=== PATIENT | female | born 1975 | race Caucasian/White ===

== ENCOUNTER → 2020-03-10 10:03 | Outpatient (BNVA) | payer BC, SELFPAY | PROVIDERS: Family Provider Family Medicine; PCP Family Medicine; Visit Provider Nurse Practitioner Family | DX: Z20.828 Contact with and (suspected) exposure to other viral communicable diseases (principal); J06.9 Acute upper respiratory infection, unspecified | CPT/HCPCS: 87635 ==

== ENCOUNTER 2022-05-19 14:13 | Inpatient (IN) | payer BC, SELFPAY ==
[2022-05-19] VITALS (7 sets, daily range): BP systolic 186–236; BP diastolic 103–133; PULSE 95–108; RESP 18–26; TEMP 36.6–36.7; O2SAT 87–94; BMI 69.3
--- NOTE | 2022-05-19 14:31 | ED_ITS ---
HPI - Extremity Problem General: Chief complaint: Extremity Problem,Nontraumatic Stated complaint: legs swollen and both have sores Time Seen by Provider: 05/19/22 14:31 History of Present Illness: Ms. Ayala is a 46-year-old lady presenting to the emergency department due to concern over volume overload and leg wounds. She reports worsening symptoms progressively approximately 6 months and bilateral lower extremities. Over the past week or so she has noticed fevers, nausea, vomiting, increased drainage and wounds that do not appear to be healing. Most prominently there is a smaller 1 on the right anterior jensen and a larger 1 in the left posterior calf region. She also notes dyspnea on exertion. She is a former smoker but has not smoked in 8 years. Denies associated i nfectious symptoms regarding respiratory. She notes abdominal fullness. She has also had change in bowel habits. Intensity symptoms is moderate. Course has worsened. No other specific changes in health, exacerbating, or alleviating factors identified. Onset (ago): month(s) Location: lower extremity Quality: burning Radiation: none Relieving factors: nothing Exacerbating factors: weight bearing, walking and palpation Associated symptoms: Reports chest pain and short of breath Review of Systems General: Reports: 10 or more systems reviewed and unremarkable except in HPI and below Card: Reports: chest pain [facility] ED PFSH: Medical History Morbid obesity Surgical History History of History of cholecystectomy Family History Father CAD (coronary artery disease) Mother CAD (coronary artery disease) Social History Smoking and tobacco status: never smoked Alcohol intake: never Physical Exam Const: COMMON NORMALS: alert GENERAL APPEARANCE: cooperative and well developed HENMT: COMMON NORMALS: normocephalic and atraumatic HEAD & SCALP: normocephalic and atraumatic Eye: COMMON NORMALS: conjunctivae normal CONJUNCTIVA: Yes conjunctivae normal SCLERA: sclerae normal Neck/C-Spine: COMMON NORMALS: supple GENERAL: Yes trachea midline Resp: COMMON NORMALS: clear to auscultation bilaterally EFFORT & INSPECTION: Yes able to speak in complete sentences AUSCULTATION: clear to auscultation bilaterally Cardio: COMMON NORMALS: regular rate and regular rhythm RATE: regular rate RHYTHM: regular rhythm GI: COMMON NORMALS: Soft to palpation PALPATION: Yes Soft to palpation and No Tenderness to palpation present (GI) Extremity: NARRATIVE EXTREMITY EXAM: bilateral lower extremity superficial skin ulcerations. GENERAL: Yes normal exam except as noted and Yes edema Neuro: COMMON NORMALS: moves all extremities SENSORIUM/ORIENTATION: Yes alert and No Orientation impaired Psych: COMMON NORMALS: mental status grossly normal and Normal thought process present THOUGHT PROCESS: Normal thought process present Course Vital Signs: Vital signs: Vital Signs Temperature 98.3 F 05/24/22 15:50 Pulse Rate 71 05/24/22 15:50 Respiratory Rate 14 05/24/22 15:50 Blood Pressure 127/59 05/24/22 15:50 Pulse Oximetry 90 05/24/22 15:50 Oxygen Delivery Me thod 05/24/22 15:50 Oxygen Flow Rate 3 05/24/22 15:50 MDM - Extremity (Nontraumatic) Medical Decision Making 46-year-old lady presenting with concern over volume overload. She now has sores associated with extremity edema. Intermittent chest pain and shortness of breath. Patient has not had prior evaluation for heart failure. Labs with no significant hematologic abnormalities to explain symptoms. Metabolic panel with mild hypokalemia. Inflammatory markers are elevated mildly. Chest x-ray with cardiomegaly. No evidence of DVT on ultrasound. CT demonstrates lower abdominal wall cellulitis. Patient treated with antibiotic and potassium supplementation during ED course. Most likely etiology of patient's symptoms is volume overload and cellulitis without prior diagnosis of heart failure. The results of ED evaluation were discussed with the patient including plan for admission due to requirement for level of care not available if discharged to prevent significant worsening/deterioration. Patient agreeable with plan. Discussed with hospitalist service who was agreeable to admit patient. Medical Records I reviewed the patient's medical records. Lab Data I reviewed the patient's lab results. 05/24/22 08:05 05/24/22 08:05 Radiology Impressions Chest X-Ray 05/19/22 14:59 IMPRESSION: Increased heart size with mild cardiomegaly. Abdomen/Pelvis CT 05/19/22 16:11 IMPRESSION: 1. Question of lower abdominal wall cellulitis 2. No acute intra-abdominal finding. Venous Duplex 05/19/22 18:22 IMPRESSION: No evidence of deep vein thrombosis. Laboratory Results WBC 7.6 10^3/uL (4.0-10.0) 05/19/22 15:15 RBC 5.08 10^6/uL (4.1-5.3) 05/19/22 15:15 Hgb 11.5 g/dL (11.5-15.3) 05/19/22 15:15 Hct 42.5 % (37.0-47.0) 05/19/22 15:15 MCV 83.7 fl (81-99) 05/19/22 15:15 MCH 22.6 pg (28.0-34.0) L 05/19/22 15:15 MCHC 27.1 g/dL (30.0-36.0) L 05/19/22 15:15 RDW 21.8 % (12.1-15.1) H 05/19/22 15:15 Plt Count 244 10^3/cmm (130-400) 05/19/22 15:15 MPV 8.4 fL (7.4-10.4) 05/19/22 15:15 Neut % (Auto) 75.2 % 05/19/22 15:15 Lymph % (Auto) 13.2 % 05/19/22 15:15 [place] % (Auto) 9.7 % 05/19/22 15:15 Eos % (Auto) 0.8 % 05/19/22 15:15 Baso % (Auto) 0.8 % 05/19/22 15:15 Neut # (Auto) 5.75 10^3/uL (1.8-7.7) 05/19/22 15:15 Lymph # (Auto) 1.0 10^3/uL (0.8-4.8) 05/19/22 15:15 [place] # (Auto) 0.7 10^3/uL (0.2-0.9) 05/19/22 15:15 Eos # (Auto) 0.1 10^3/uL (0.0-0.8) 05/19/22 15:15 Baso # (Auto) 0.1 10^3/uL (0.0-0.1) 05/19/22 15:15 Nucleated RBC % (auto) 0 % 05/19/22 15:15 Nucleated RBCs # 0.0 /100WBC 05/19/22 15:15 ESR 46 mm/hr (0-15) H 05/19/22 15:15 Sodium 136 mmol/L (136-145) 05/19/22 15:15 Potassium 3.3 mmol/L (3.5-5.1) L 05/19/22 15:15 Chloride 98 mmol/L (98-107) 05/19/22 15:15 Carbon Dioxide 28 mmol/L (22-29) 05/19/22 15:15 Anion Gap 13.3 (5-19) 05/19/22 15:15 BUN 9 mg/dL (6-20) 05/19/22 15:15 Creatinine 0.4 mg/dL (0.5-0.9) L 05/19/22 15:15 GFR Calculation 171.1 mL/min (90-130) H 05/19/22 15:15 Glucose 114 mg/dL (65-115) 05/19/22 15:15 Calculated Osmolality 282 mOsm/kg (285-295) L 05/19/22 15:15 Lactate 1.2 mmol/L (0.5-2.2) 05/19/22 15:15 Calcium 10.1 mg/dL (8.5-10.5) 05/19/22 15:15 Total Bilirubin 0.9 mg/dL (0.15-1.2) 05/19/22 15:15 AST 8 U/L (0-32) 05/19/22 15:15 ALT 6 U/L (0-33) 05/19/22 15:15 Alkaline Phosphatase 148 U/L (35-105) H 05/19/22 15:15 Troponin T Baseline 9 ng/L (0-10) 05/19/22 19:28 C-Reactive Protein 7.7 mg/L (0.0-4.9) H 05/19/22 15:15 NT-Pro-B Natriuret Pep 328 pg/mL (0-125) H 05/19/22 15:15 Total Protein 7.3 g/dL (6.6-8.7) 05/19/22 15:15 Albumin 3.6 g/dL (3.5-5.2) 05/19/22 15:15 Globulin 3.7 g/dL (1.3-4.6) 05/19/22 15:15 Procalcitonin 0.04 ng/mL (0-0.5) 05/19/22 15:15 TSH 1.85 uIU/mL (0.27-4.20) 05/19/22 15:15 HCG, Qual Negative (Negative) 05/19/22 16:20 Urine Color Yellow (Yellow) 05/19/22 16:20 Urine Appearance Clear (CLEAR) 05/19/22 16:20 Urine pH 7 (5-7) 05/19/22 16:20 Ur Specific [place] 1.015 (1.005-1.030) 05/19/22 16:20 Urine Protein Neg (Negative) 05/19/22 16:20 Urine Glucose (UA) Norm (Normal) 05/19/22 16:20 Urine Ketones Negative (Negative) 05/19/22 16:20 Urine Blood Neg (Negative) 05/19/22 16:20 Urine Nitrate Negative (Negative) 05/19/22 16:20 Urine Bilirubin Neg (Negative) 05/19/22 16:20 Urine Urobilinogen 1 mg/dL (Negative) H 05/19/22 16:20 Ur Leukocyte Esterase Negative (Negative) 05/19/22 16:20 Discharge Plan Discharge Patient Disposition: Placed in Observation Admit Provider: Mehrdad Jimenez Clinical Impression: Cellulitis, Lower extremity edema, Symptom of congestive heart failure, Hypoxia, Hypokalemia Discharge Diet: Cardiac Discharge Activity: Resume usual activity Coding Level of Care Code ED Board Setter for Lillian Gómez
--- NOTE | 2022-05-19 14:59 | XRR_ITS ---
PROCEDURE INFORMATION: Exam: XR Chest Exam date and time: 05/19/2022 3:10 PM Age: 46 years old Clinical indication: Shortness of breath; Additional info: SOB TECHNIQUE: Imaging protocol: Radiologic exam of the chest. Views: 1 view. COMPARISON: CR XR chest 1V [id number] 07/31/2018 4:14 PM FINDINGS: Lungs: Unremarkable. No consolidation. Pleural spaces: Unremarkable. No pleural effusion. No pneumothorax. Heart/Mediastinum: Increased heart size with mild cardiomegaly. Bones/joints: Unremarkable. Soft tissues: Examination is limited secondary to body habitus. XR/XR chest 1V portable [id number] IMPRESSION: Increased heart size with mild cardiomegaly.
[2022-05-19 15:24] LABS: Basophils # 0.1 10^3/uL (0.0-0.1); Basophils % 0.8 %; Eosinophils # 0.1 10^3/uL (0.0-0.8); Eosinophils % 0.8 %; Hematocrit 42.5 % (37.0-47.0); Hemoglobin 11.5 g/dL (11.5-15.3); Lymphocytes % 13.2 %; Mean Corpuscular HGB Conc 27.1 g/dL (30.0-36.0); Mean Corpuscular Hemoglobin 22.6 pg (28.0-34.0); Mean Corpuscular Volume 83.7 fl (81-99); Mean Platelet Volume 8.4 fL (7.4-10.4); Monocytes # 0.7 10^3/uL (0.2-0.9); Monocytes % 9.7 %; Neutrophils # 5.75 10^3/uL (1.8-7.7); Neutrophils % 75.2 %; Nucleated Red Blood Cells % 0 %; Platelet Count 244 10^3/cmm (130-400); Red Blood Count 5.08 10^6/uL (4.1-5.3); Red Cell Distribution Width 21.8 % (12.1-15.1); White Blood Count 7.6 10^3/uL (4.0-10.0)
[2022-05-19 15:46] LABS: Lactate (Lactic Acid level) 1.2 mmol/L (0.5-2.2)
[2022-05-19 15:52] LABS: Erythrocyte Sedimentation Rate 46 mm/hr (0-15)
[2022-05-19 15:53] LABS: NT Pro B Type Natriuretic Pept 328 pg/mL (0-125); Procalcitonin 0.04 ng/mL (0-0.5); Thyroid Stimulating Hormone 1.85 uIU/mL (0.27-4.20)
[2022-05-19 16:04] LABS: Alanine Aminotransferase 6 U/L (0-33); Albumin Level 3.6 g/dL (3.5-5.2); Alkaline Phosphatase 148 U/L (35-105); Anion Gap 13.3 (5-19); Aspartate Amino Transferase 8 U/L (0-32); Blood Urea Nitrogen 9 mg/dL (6-20); C Reactive Protein 7.7 mg/L (0.0-4.9); Calcium 10.1 mg/dL (8.5-10.5); Carbon Dioxide 28 mmol/L (22-29); Chloride 98 mmol/L (98-107); Globulin 3.7 g/dL (1.3-4.6); Glomerular Filtration Rate 171.1 mL/min (90-130); Glucose 114 mg/dL (65-115); Osmolality Calculated 282 mOsm/kg (285-295); Potassium 3.3 mmol/L (3.5-5.1); Sodium 136 mmol/L (136-145); Total Bilirubin 0.9 mg/dL (0.15-1.2); Total Protein 7.3 g/dL (6.6-8.7)
--- NOTE | 2022-05-19 16:11 | CTR_ITS ---
PROCEDURE INFORMATION: Exam: CT Abdomen And Pelvis With Contrast Exam date and time: 05/19/2022 4:30 PM Age: 46 years old Clinical indication: Bloating; Abdominal pain; Localized; Right; Additional info: Abd pain, fullness, change in bowel habits TECHNIQUE: Imaging protocol: Computed tomography of the abdomen and pelvis with contrast. Radiation optimization: All CT scans at this facility use at least one of these dose optimization techniques: automated exposure control; mA and/or kV adjustment per patient size (includes targeted exams where dose is matched to clinical indication); or iterative reconstruction. Contrast material: OMNI 350; Contrast volume: 100 ml; Contrast route: INTRAVENOUS (IV); REPORTING DATA: Count of CT and Cardiac NM exams in prior 12 months: This patient has received 0 known CTs and 0 known cardiac nuclear medicine studies in the 12 months prior to the current study. COMPARISON: CR (CHEST, ) 05/19/2022 3:10 PM RADIATION DOSE METRICS: Total DLP (mGy-cm): 1769.63 FINDINGS: Limitations: Study is limited due to patient body habitus. Increased noise/quantum mottle, which may be secondary to causes such as low to output for a given body size versus increased amount overlying soft tissues. Liver: There is no focal abnormality within the liver. Gallbladder and bile ducts: There has been a cholecystectomy. Pancreas: The pancreas is normal. Spleen: The spleen is normal. Adrenal glands: 2.3 cm sized fatty mass right adrenal gland likely benign myelolipoma. Kidneys and ureters: The kidneys are normal. There is no evidence of hydronephrosis. There is no evidence of renal or ureteral calcifications. Stomach and bowel: There is no evidence of colitis/diverticulitis. There is no evidence of intestinal obstruction. Appendix: A normal appendix is identified. Intraperitoneal space: There is no evidence of free intraperitoneal fluid. Vasculature: A retroaortic left renal vein is incidentally noted. The aorta is normal. Lymph nodes: There is no evidence of lymphadenopathy. Urinary bladder: Unremarkable as visualized. Reproductive: Unremarkable as visualized. Bones/joints: Unremarkable. No acute fracture. Soft tissues: There is edema in the subcutaneous fat of the lower abdominal wall and skin thickening. Please correlate for any clinical signs or symptoms of cellulitis. CT/CT abdomen pelvis w con* [id number] IMPRESSION: 1. Question of lower abdominal wall cellulitis 2. No acute intra-abdominal finding.
[2022-05-19 16:33] LABS: Add Urine Microscopic? NO; Charge for UA Resulting for Rev
[2022-05-19 16:38] LABS: Bilirubin Urine Neg (Negative); Blood Urine Neg (Negative); Glucose Urine UA Norm (Normal); Ketones Urine Negative (Negative); Leukocyte Esterase Urine Negative (Negative); Nitrate Urine Negative (Negative); Protein Urine Neg (Negative); Specific Gravity, Urine 1.015 (1.005-1.030); Urine Appearance Clear (CLEAR); Urine Color Yellow (Yellow); Urobilinogen Urine 1 mg/dL (Negative); pH Urine 7 (5-7)
[2022-05-19] MEDS: potassium chloride ER 20 mEq Tablet 40 MEQ PO (16:52)
[2022-05-19] MEDS: clindamycin 600 MG/50 ML PREMIX 100 MG IV (18:04)
--- NOTE | 2022-05-19 18:22 | USR_ITS ---
PROCEDURE INFORMATION: Exam: US Duplex Lower Extremity Veins, Bilateral Exam date and time: 05/19/2022 6:39 PM Age: 46 years old Clinical indication: Lymphedema; Lower extremity, bilateral; Additional info: Dvt TECHNIQUE: Imaging protocol: Real-time duplex ultrasound of the bilateral extremities with 2-D mcclellan scale, color Doppler flow and spectral waveform analysis including responses to compression and other maneuvers (when performed) with image documentation. Complete exam focused on the lower extremity veins. COMPARISON: CT abdomen pelvis w con* [id number] 05/19/2022 4:30 PM FINDINGS: Right deep veins: Unremarkable. The common femoral, femoral, proximal profunda femoral and popliteal veins are patent without thrombus. Normal Doppler waveforms. Normal compressibility and/or augmentation response. Right superficial veins: Saphenofemoral junction is patent without thrombus. Left deep veins: Unremarkable. The common femoral, femoral, proximal profunda femoral and popliteal veins are patent without thrombus. Normal Doppler waveforms. Normal compressibility and/or augmentation response. Left superficial veins: Saphenofemoral junction is patent without thrombus. Soft tissues: Unremarkable. US/[place] [id number] IMPRESSION: No evidence of deep vein thrombosis.
--- NOTE | 2022-05-19 18:23 | P.HP_ITS ---
Providers/Chief Complaint Primary Care Provider: Jus Espinal MD Chief Complaint: legs swollen and both have sores History of Present Illness Tammie Ayala is a 46 year old female with no significant past medical history except morbid obesity, she has not seen a physician in a long time, who presents to [facility] due to increased shortness of breath, lower extremity edema, bilateral weeping edema with concerns for infection however legs. She tells me that she has been feeling short of breath for some time, but she has progressively felt increasingly short of breath with exertion, now she is short of breath with less than a few feet, short of breath with showering, she is developed significant worsening lower extremity edema now is developed weeping edema such as the blisters rupture and they weep fluid. She is also developed irritation of the skin around it, she is worried about infection. She also describes twinging in her chest, possible chest pain in the left side of her chest lasting a few seconds, nonradiating, no orthopnea, probable paroxysmal nocturnal dyspnea. No fevers, no chills. She denies smoking. No history of alcohol use. No history of drug use. She also reports increased abdominal wall edema, fullness in her abdominal wall. She denies any history of hypertension, but her blood pressure was 231/105, she has not received any medication to bring down her blood pressure, she denies any headache, no blurry vision, no nausea, no vomiting, no focal neurologic deficits, no paresthesias she actually sitting up in a chair her daughter's sitting in the [facility] Review of Systems Const: Denies: fever(s) Eyes: Denies: change in vision ENMT: Reports: throat pain Card: Denies: chest pain Resp: Reports: dyspnea GI: Denies: abdominal pain : Denies: flank pain Musc: Denies: back pain Neuro: Denies: headache(s) Medications/Allergies Home Medications Medication Instructions Recorded Confirmed Last Taken Type No Known Home Medications 05/19/22 05/19/22 Unknown History Allergies Allergy/AdvReac Type Severity Reaction Status Date / Time acetaminophen [From Percocet] Allergy ALGY-Anaphy Verified 05/19/22 14:26 laxis oxycodone [From Percocet] Allergy ALGY-Anaphy Verified 05/19/22 14:26 laxis PFSH Acute PFSH: Medical History (Updated 05/19/22 @ 18:31 by Mehrdad Jimenez MD) Morbid obesity Surgical History (Updated 05/19/22 @ 18:27 by Mehrdad Jimenez MD) History of History of cholecystectomy Family History (Updated 05/19/22 @ 18:27 by Mehrdad Jimenez MD) Father CAD (coronary artery disease) Mother CAD (coronary artery disease) Social History (Updated 05/19/22 @ 18:28 by Mehrdad Jimenez MD) Smoking and tobacco status: never smoked Alcohol intake: never Substance/Drug Use: never Vitals/I&O/Wt Last Vital Signs Temp 97.8 F 05/19/22 14:18 Pulse 108 H 05/19/22 14:18 Resp 18 05/19/22 14:18 BP 231/105 05/19/22 18:07 Pulse Ox 87 L 05/19/22 14:18 O2 Del Method 05/19/22 14:18 Weight last 48 hrs Weight 183.251 kg Physical Exam Const: COMMON NORMALS: no acute distress and patient oriented x3 OTHER: Morbidly obese HENMT: COMMON NORMALS: normocephalic HEAD & SCALP: normocephalic Eye: COMMON NORMALS: Equal, round and reactive pupils present and EOMs intact bilaterally Neck/C-Spine: COMMON NORMALS: no JVD Lymph: LYMPHATIC: no lymphadenopathy noted Chest: COMMONS NORMALS: normal inspection of the chest Resp: COMMON NORMALS: normal respiratory effort, No retractions, No use of accessory muscles and clear to auscultation bilaterally AUSCULTATION: clear to auscultation bilaterally Cardio: COMMON NORMALS: regular rate, regular rhythm, S1 normal heart sound present and S2 normal heart sound present RATE: regular rate RHYTHM: regular rhythm HEART SOUNDS: S1 normal heart sound present and S2 normal heart sound present GI: COMMON NORMALS: Normal to inspection, nondistended, normoactive bowel sounds present, Soft to palpation and non-tender PALPATION: Yes Soft to palpation and Yes No hepatosplenomegaly present Extremity: COMMON NORMALS: no calf tenderness NARRATIVE EXTREMITY EXAM: Bilateral lower extremity, 3+ pitting edema -Has open wounds and have open excoriations -On right lower extremity largest measuring 1 x 1 cm, irregular borders -1 on left lower extremity, measuring 1 x 1 cm, irregular borders Neuro: COMMON NORMALS: patient oriented x3, CN's II-XII intact bilaterally, moves all extremities and no focal motor deficits Psych: COMMON NORMALS: mental status grossly normal Data 05/19/22 15:15 05/19/22 15:15 A&P Assessment and plan (1) Chest pain: (2) Hypertensive urgency: (3) CHF exacerbation: (4) Lower extremity edema: (5) Cellulitis: (6) Hypoxia: (7) Hypokalemia: Plan Hypertensive urgency -Currently denies any chest pain, no strokelike symptoms, no shortness of breath -ER we will give her 0.1 of clonidine -But I think that she will likely develop right down hypertension, but will place on nitroglycerin drip -Once systolic blood pressure is less than 160 and diastolic is greater than 80 can hold nitroglycerin drip -Start Norvasc 10 mg once daily -Telemetry monitoring -Neurochecks CHF exacerbation -Type unknown -Seems like diastolic CHF exacerbation -Fluid restrictions 1200 cc -Place Sharp catheter -Lasix 40 mg IV twice daily -Slowly diuresis -Monitor creatinine, monitor potassium, magnesium Chest pain complaints -None currently -Serial EKGs, serial troponins, telemetry monitoring Bilateral lower extremity cellulitis -Continue vancomycin -Continue cefepime Venous ultrasound, for DVT Hypokalemia being replaced in the emergency room Morbid obesity Full code Lovenox for DVT prophylaxis Attestations Medical Necessity Statement*: Patient requires hospitalization, inpatient, greater than 2 minutes, for acute CHF?admission, type unknown, hypoxia, cellulitis, bilateral from edema, hypertensive urgency Coding Level of Care Code Acute Code for [facility] Fwd Diagnoses Chest pain R07.9 Hypertensive urgency I16.0 CHF exacerbation I50.9 Lower extremity edema R60.0 Cellulitis L03.90 Hypoxia R09.02 Hypokalemia E87.6
[2022-05-19] MEDS: cloNIDine 0.1 mg Tablet PO (18:30)
[2022-05-19 18:51] LABS: HCG Qualitative Urine. Negative (Negative)
[2022-05-19 19:59] LABS: Troponin(5th) Baseline 9 ng/L (0-10)
--- NOTE | 2022-05-19 20:38 | ECG_ITS ---
[facility] Test Date: 2022-05-19 Pat Name: Tammie Ayala Department: Room: 112 Gender: Female Inbound Telemarketer: : 1975 Requested By: Mehrdad Jimenez Order Number: [id number] Reading MD: MORENITA BAUTISTA Measurements Intervals [place] Rate: 98 P: 64 [place]: 149 QRS: 61 QRSD: 94 T: 52 QT: 363 QTc: 465 Interpretive Statements SINUS RHYTHM No previous ECG available for comparison Electronically Signed On 05-19-2022 23:41:53 CDT by MORENITA BAUTISTA [id number]
[2022-05-19] MEDS: amlodipine 10 mg Tablet PO (20:50)
[2022-05-19] MEDS: FUROsemide 10 mg/mL SDV 4mL 40 MG IVP (20:50)
[2022-05-19] MEDS: pantoprazole 40 mg SDV IVP (20:55)
[2022-05-19] MEDS: cefepime 1,000 MG in sodium chloride 0.9% (plus) 50 ML 100 MG IV (20:56)
[2022-05-19] MEDS: enoxaparin 40 mg/0.4 mL Syringe SUBCUT (21:03)
[2022-05-19] MEDS: vancomycin 1,500 MG/300 ML PIGGYBACK 200 MG IV (21:42)
[2022-05-19] MEDS: nitroglycerin drip 50 MG/250 ML PREMIX IV (21:50)
[2022-05-19] MEDS: acetaminophen 325 mg Tablet 650 MG PO (22:20)
[2022-05-19 23:09] LABS: Estmated Average Glucose 128; Hemoglobin A1C 6.1 % (4.0-6.0)
[2022-05-19 23:12] LABS: Troponin 5 2HR 11.04 ng/L (0-10); Troponin 5 2HR Delta 2.04 ABS# (0-10)
[2022-05-19 23:22] LABS: Chol HDL Ratio 3.79 mg/dL (0.0-4.40); Cholesterol 144 mg/dL (0-200); HDL Cholesterol 38 mg/dL (60-100); LDL Cholesterol Calculated 89 mg/dL (50-129); LDL HDL Ratio 2.34 RATIO (0.00-3.22); Thyroid Stimulating Hormone 1.67 uIU/mL (0.27-4.20); Triglycerides 87 mg/dL (0-150)
[2022-05-20] VITALS (10 sets, daily range): BP systolic 114–172; BP diastolic 58–79; PULSE 78–113; RESP 16–25; TEMP 36.6–37.2; O2SAT 91–96
--- NOTE | 2022-05-20 00:33 | ECG_ITS ---
[facility] Test Date: 2022-05-20 Pat Name: Tammie Ayala Department: Room: 112 Gender: Female Liquid Yeast Supervisor: : 1975 Requested By: Mehrdad Jimenez Order Number: [id number] Reading MD: MORENITA BAUTISTA Measurements Intervals [place] Rate: 97 P: 47 [place]: 145 QRS: 24 QRSD: 94 T: 43 QT: 373 QTc: 476 Interpretive Statements SINUS RHYTHM Compared to ECG 05/19/2022 21:07:04 No significant changes Electronically Signed On 05-21-2022 3:08:30 CDT by MORENITA BAUTISTA [id number]
[2022-05-20 01:32] LABS: Basophils # 0.1 10^3/uL (0.0-0.1); Basophils % 0.6 %; Eosinophils # 0.1 10^3/uL (0.0-0.8); Eosinophils % 0.8 %; Hemoglobin 10.9 g/dL (11.5-15.3); Lymphocytes % 10.2 %; Mean Corpuscular HGB Conc 26.6 g/dL (30.0-36.0); Mean Corpuscular Hemoglobin 22.2 pg (28.0-34.0); Mean Corpuscular Volume 83.7 fl (81-99); Mean Platelet Volume 8.4 fL (7.4-10.4); Monocytes # 1.1 10^3/uL (0.2-0.9); Monocytes % 10.7 %; Neutrophils # 7.62 10^3/uL (1.8-7.7); Neutrophils % 77.6 %; Nucleated Red Blood Cells % 0 %; Platelet Count 280 10^3/cmm (130-400); Red Cell Distribution Width 21.5 % (12.1-15.1); White Blood Count 9.8 10^3/uL (4.0-10.0)
[2022-05-20 01:56] LABS: Troponin 5 6HR 11.15 ng/L (0-10)
[2022-05-20 02:02] LABS: Anion Gap 10.5 (5-19); Blood Urea Nitrogen 7 mg/dL (6-20); Calcium 9.7 mg/dL (8.5-10.5); Carbon Dioxide 33 mmol/L (22-29); Chloride 98 mmol/L (98-107); Glomerular Filtration Rate 132.2 mL/min (90-130); Glucose 116 mg/dL (65-115); Magnesium 1.7 mg/dL (1.7-2.3); NT Pro B Type Natriuretic Pept 489 pg/mL (0-125); Osmolality Calculated 285 mOsm/kg (285-295); Phosphorus 3.3 mg/dL (2.5-4.5); Potassium 3.5 mmol/L (3.5-5.1); Sodium 138 mmol/L (136-145)
[2022-05-20 02:20] LABS: Troponin 5 6HR Delta 2.15 ng/L (0-12)
[2022-05-20] MEDS: acetaminophen 325 mg Tablet 650 MG PO ×3 (04:23→17:50)
--- NOTE | 2022-05-20 06:00 | USCV_ITS ---
Tammie Ayala Age: 46 Gender: F : 1975 Exam Date: 05/20/2022 16:50 Ordering Phys: Mehrdad Jimenez MD Technologist: CESAR [place]am Location[place] [facility] [place] [facility] [place] Indication: sob BP: / HR: Rhythm: Sinus Technical Quality: Poor because of body habitus MEASUREMENTS (Male / Female) Normal Values FINDINGS Left Ventricle Normal left ventricular size, systolic function and wall thickness, with no regional wall motion abnormalities. Left ventricular ejection fraction is estimated at 60 %. Grade I/IV diastolic dysfunction (abnormal relaxation filling pattern), normal to mildly elevated filling pressures. Right Ventricle The right ventricle is normal in size and function. Right Atrium The right atrium is normal in size. Left Atrium The left atrium is normal in size. Mitral Valve Structurally normal mitral valve without significant stenosis or prolapse. There is no mitral regurgitation. Aortic Valve Thickened aortic valve. Severe aortic valve calcification. Aortic valve not well visualized. Probably no significant stenosis Tricuspid Valve Structurally normal tricuspid valve without significant stenosis or regurgitation. Pulmonary artery systolic pressure is normal. Pulmonic Valve Structurally normal pulmonic valve without significant stenosis. There is no pulmonic regurgitation. Pericardium Normal pericardium without effusion. Aorta Normal ascending aorta dimension. IVC The inferior vena cava appears normal. CONCLUSIONS 1-Normal left ventricular size, systolic function and wall thickness, with no regional wall motion abnormalities. Left ventricular ejection fraction is estimated at 60 %. Grade I/IV diastolic dysfunction (abnormal relaxation filling pattern), normal to mildly elevated filling pressures. 2-There is no pericardial effusion. 3-No significant valve abnormalities. 4-Right atrial pressure is around 5 mm of mercury. Marc Liu MD (Electronically Signed) Final Date: 21 May 2022 02:20 S
[2022-05-20] MEDS: spironolactone 25 mg Tablet PO (08:41)
[2022-05-20] MEDS: FUROsemide 10 mg/mL SDV 4mL 40 MG IVP (08:41)
[2022-05-20] MEDS: potassium chloride ER 20 mEq Tablet 40 MEQ PO (08:42)
[2022-05-20] MEDS: amlodipine 10 mg Tablet PO (08:42)
[2022-05-20] MEDS: metoprolol tartrate 25 mg Tablet PO ×2 (08:42→20:13)
[2022-05-20] MEDS: cefepime 1,000 MG in sodium chloride 0.9% (plus) 50 ML 100 MG IV ×2 (08:42→20:14)
[2022-05-20] MEDS: vancomycin 1,500 MG/300 ML PIGGYBACK 200 MG IV ×2 (11:09→18:13)
--- NOTE | 2022-05-20 11:13 | PM.PN ---
Subjective Subjective: Patient was seen this morning, she feels a lot better, she does a lot better, but continues to have complaints of shortness of breath is on 4 L, continues to have edema Vitals/I&O/Wt Last Vital Signs Temp 98.7 F 05/20/22 07:42 Pulse 113 H 05/20/22 07:42 Resp 20 H 05/20/22 07:42 BP 172/79 05/20/22 07:42 Pulse Ox 96 05/20/22 07:42 O2 Del Method 05/20/22 07:42 O2 Flow Rate 4 05/20/22 07:42 05/19/22 05/20/22 05/20/22 22:59 06:59 14:59 Intake Total 100 / 100 780 / 880 379 / 379 Output Total 2400 / 2400 3100 / 5500 2800 / 2800 Balance -2300 / -2300 -2320 / -4620 -2421 / -2421 Weight last 48 hrs Weight 183.251 kg Physical Exam Const: COMMON NORMALS: no acute distress and patient oriented x3 Resp: COMMON NORMALS: normal respiratory effort, No retractions, No use of accessory muscles and clear to auscultation bilaterally AUSCULTATION: clear to auscultation bilaterally Cardio: COMMON NORMALS: regular rate, regular rhythm, S1 normal heart sound present and S2 normal heart sound present RATE: regular rate RHYTHM: regular rhythm HEART SOUNDS: S1 normal heart sound present and S2 normal heart sound present GI: COMMON NORMALS: Normal to inspection, nondistended, normoactive bowel sounds present and non-tender Extremity: COMMON NORMALS: no pedal edema Neuro: COMMON NORMALS: patient oriented x3 Psych: COMMON NORMALS: mental status grossly normal Urinary Catheter Management: Sharp Latex: Cath Placed During This Visit: yes Reason for Continuing Indwelling Catheter: Accurate Measurement of Urinary Output in Critically Ill Patients Urinary Catheter Date of Insertion: 05/19/22 Urinary Catheter Time of Insertion: 19:45 Data 05/20/22 01:19 05/20/22 01:19 Micro: Microbiology 05/19/22 19:35 Blood Culture - Preliminary Blood SPECIMEN COLLECTED 05/19/22 19:28 Blood Culture - Preliminary Blood SPECIMEN COLLECTED A&P Assessment and plan (1) Chest pain: (2) Hypertensive urgency: (3) CHF exacerbation: (4) Lower extremity edema: (5) Cellulitis: (6) Hypoxia: (7) Hypokalemia: Plan Hypertensive urgency -Currently denies any chest pain, no strokelike symptoms, no shortness of breath -Off nitroglycerin drip -Aldactone 25 mg once daily -Norvasc 10 mg once daily -Metoprolol 25 twice daily CHF exacerbation -Type unknown -Seems like diastolic CHF exacerbation -Fluid restrictions 1200 cc -Place Sharp catheter - -8 L -Switch to Lasix 40 IV every 24 hours -Slowly diuresis -Monitor creatinine, monitor potassium, magnesium Chest pain complaints -None currently -Continue telemetry monitoring -Cardiac echo Bilateral lower extremity cellulitis -Continue vancomycin -Continue cefepime Morbid obesity Full code Lovenox for DVT prophylaxis Attestations Medical Necessity Statement*: Patient requires hospitalization for hypertensive urgency, CHF exacerbation Diagnoses Chest pain R07.9 Hypertensive urgency I16.0 CHF exacerbation I50.9 Lower extremity edema R60.0 Cellulitis L03.90 Hypoxia R09.02 Hypokalemia E87.6
[2022-05-20] MEDS: perflutren protein-a microsphr 0.22 mg/mL SDV 3 mL IV (17:41)
[2022-05-20] MEDS: enoxaparin 40 mg/0.4 mL Syringe SUBCUT (20:13)
[2022-05-20] MEDS: pantoprazole 40 mg SDV IVP (20:13)
[2022-05-21] VITALS (11 sets, daily range): BP systolic 133–146; BP diastolic 60–70; PULSE 71–92; RESP 18–24; TEMP 36.8–37.2; O2SAT 85–97
[2022-05-21] MEDS: acetaminophen 325 mg Tablet 650 MG PO ×4 (01:53→23:44)
[2022-05-21] MEDS: vancomycin 1,500 MG/300 ML PIGGYBACK 200 MG IV ×3 (02:28→18:15)
[2022-05-21] MEDS: ondansetron 2 mg/ML SDV 2 mL 4 MG IVP ×3 (02:28→23:44)
[2022-05-21 03:29] LABS: Basophils % 0.4 %; Eosinophils # 0.1 10^3/uL (0.0-0.8); Eosinophils % 1.2 %; Hematocrit 41.3 % (37.0-47.0); Hemoglobin 10.7 g/dL (11.5-15.3); Lymphocytes # 1.3 10^3/uL (0.8-4.8); Mean Corpuscular HGB Conc 25.9 g/dL (30.0-36.0); Mean Corpuscular Hemoglobin 22.2 pg (28.0-34.0); Mean Corpuscular Volume 85.9 fl (81-99); Mean Platelet Volume 8.8 fL (7.4-10.4); Monocytes # 0.8 10^3/uL (0.2-0.9); Monocytes % 9.3 %; Neutrophils # 6.74 10^3/uL (1.8-7.7); Neutrophils % 74.8 %; Nucleated Red Blood Cells % 0 %; Platelet Count 273 10^3/cmm (130-400); Red Blood Count 4.81 10^6/uL (4.1-5.3); Red Cell Distribution Width 21.5 % (12.1-15.1)
[2022-05-21 03:43] LABS: Magnesium 1.9 mg/dL (1.7-2.3); Phosphorus 3.4 mg/dL (2.5-4.5)
[2022-05-21 03:53] LABS: Anion Gap 11.8 (5-19); Blood Urea Nitrogen 10 mg/dL (6-20); Calcium 10.1 mg/dL (8.5-10.5); Carbon Dioxide 33 mmol/L (22-29); Chloride 100 mmol/L (98-107); Glomerular Filtration Rate 132.2 mL/min (90-130); Glucose 119 mg/dL (65-115); NT Pro B Type Natriuretic Pept 236 pg/mL (0-125); Osmolality Calculated 292 mOsm/kg (285-295); Potassium 3.8 mmol/L (3.5-5.1); Sodium 141 mmol/L (136-145)
[2022-05-21] MEDS: metoclopramide 5 mg/mL SDV 2 mL IVP (04:41)
[2022-05-21] MEDS: FUROsemide 10 mg/mL SDV 4mL 40 MG IVP ×2 (05:07→17:36)
[2022-05-21] MEDS: cefepime 1,000 MG in sodium chloride 0.9% (plus) 50 ML 100 MG IV ×2 (08:08→20:24)
[2022-05-21] MEDS: amlodipine 10 mg Tablet PO (08:09)
[2022-05-21] MEDS: metoprolol tartrate 25 mg Tablet PO ×2 (08:09→20:24)
[2022-05-21] MEDS: spironolactone 25 mg Tablet PO (08:09)
[2022-05-21] MEDS: potassium chloride ER 20 mEq Tablet 40 MEQ PO (08:09)
[2022-05-21] MEDS: metOLazone 5 MG Tablet PO (08:49)
--- NOTE | 2022-05-21 10:52 | PC.CHAP ---
Pastoral Care Encounter/Spiritual Assessment Type of Contact [] Declined edging catcher visit [] Patient/Family/Request visit [] Outpatient visit [] Follow-up visit [] Physician referral [] Code/Alert [] Routine visit [] Staff referral [] Actively dying [] Patient sleeping [] Family support [] [] Out of room [] Palliative care [] [x] Receiving care in room [] Pre-surgical visit [] Trauma [] Long length of stay [] ICU visit [] Other: Relational/Emotional Strength [] Patient feels connected with others/family/visitors/staff [] Distress [] Loneliness/isolation [] Abandonment Spirituality of Patient [] Person of [place] [] Attends Catholic of their [place] [] Believes in Prayer [] Reads Bible or Christian materials [] There are Spiritual issues to be addressed Organ Fixer Interventions [] Prayer [] Active listening [] Non-anxious presence [] Spiritual/emotional support [] Crisis/trauma care [] Spiritual counseling [] Bereavement support [] Provided bereavement packet [] Provided Bible/devotional materials [] Provided toy/stuffed animal, coloring book to patient or family member [] Provided Communion [] Anointing/[place] [] Salvation [] Completed spiritual assessment [] Other: Impact on Illness or Injury [] Angry [] Fearful [] Anxious [] Often cries [] Exhaustion [] Unable to work [] Unable to attend yarsani [] Unable to walk/stand [] Unable to read [] Unable to drive [] Unable to eat/drink [] Unable to sleep [] Unable to be with family [] Patient intubated [] Other: Summary Time spent with patient
[2022-05-21 10:53] LABS: Vancomycin Trough 17.7 ug/mL (10-15)
--- NOTE | 2022-05-21 13:56 | P.PN_ITS ---
Subjective Subjective: Patient was seen this morning, she continues to feel better, but continues to have lower extremity edema Vitals/I&O/Wt Last Vital Signs Temp 98.9 F 05/21/22 11:54 Pulse 71 05/21/22 11:54 Resp 18 05/21/22 11:54 BP 142/70 05/21/22 11:54 Pulse Ox 90 05/21/22 11:54 O2 Del Method 05/21/22 11:54 O2 Flow Rate 5 05/21/22 11:54 05/20/22 05/21/22 05/21/22 22:59 06:59 14:59 Intake Total 590 / 1790 300 / 2090 1054 / 1054 Output Total 250 / 3900 550 / 4450 250 / 250 Balance 340 / -2110 -250 / -2360 804 / 804 Weight last 48 hrs Weight 183.251 kg Physical Exam Const: COMMON NORMALS: no acute distress and patient oriented x3 Resp: COMMON NORMALS: normal respiratory effort, No retractions, No use of accessory muscles and clear to auscultation bilaterally AUSCULTATION: clear to auscultation bilaterally Cardio: COMMON NORMALS: regular rate, regular rhythm, S1 normal heart sound present and S2 normal heart sound present RATE: regular rate RHYTHM: regular rhythm HEART SOUNDS: S1 normal heart sound present and S2 normal heart sound present GI: COMMON NORMALS: Normal to inspection, nondistended, normoactive bowel sounds present and non-tender Extremity: NARRATIVE EXTREMITY EXAM: 2+ pitting edema bilateral extremity Neuro: COMMON NORMALS: patient oriented x3 Psych: COMMON NORMALS: mental status grossly normal Urinary Catheter Management: Sharp Latex: Cath Placed During This Visit: yes Reason for Continuing Indwelling Catheter: Other Urinary Catheter Date of Insertion: 05/19/22 Urinary Catheter Time of Insertion: 19:45 Data 05/21/22 02:47 05/21/22 02:47 Micro: Microbiology 05/19/22 19:35 Blood Culture - Preliminary Blood NEGATIVE TO DATE 05/19/22 19:28 Blood Culture - Preliminary Blood NEGATIVE TO DATE 05/19/22 20:15 MRSA Culture - Final Nose A&P Assessment and plan (1) Chest pain: (2) Hypertensive urgency: (3) CHF exacerbation: (4) Lower extremity edema: (5) Cellulitis: (6) Hypoxia: (7) Hypokalemia: Plan Hypertensive urgency -Currently denies any chest pain, no strokelike symptoms, no shortness of breath -Off nitroglycerin drip -Aldactone 25 mg once daily -Norvasc 10 mg once daily -Metoprolol 25 twice daily CHF exacerbation -Likely diastolic CHF exacerbation -Seems like diastolic CHF exacerbation -Fluid restrictions 1200 cc -Place Sharp catheter - -6 L -Lasix IV push every 24 hours, 1 dose of metolazone this morning -Slowly diuresis -Monitor creatinine, monitor potassium, magnesium Chest pain complaints -None currently -Continue telemetry monitoring -Cardiac echo Thickened and inhomogeneous endometrium, see additional details and discussion above. 2. ? 33 x 20 x 32 mm right ovarian cyst, see above 3. ? Blood flow detected in each ovary. 4. ? Other details discussed above. Bilateral lower extremity cellulitis -Continue vancomycin -Continue cefepime Morbid obesity Full code Lovenox for DVT prophylaxis Attestations Medical Necessity Statement*: Patient requires hospital for diastolic CHF exacerbation, cellulitis Coding Level of Care Code Acute Code for [facility] Fwd Diagnoses Chest pain R07.9 Hypertensive urgency I16.0 CHF exacerbation I50.9 Lower extremity edema R60.0 Cellulitis L03.90 Hypoxia R09.02 Hypokalemia E87.6
[2022-05-21] MEDS: enoxaparin 40 mg/0.4 mL Syringe SUBCUT (20:23)
[2022-05-21] MEDS: pantoprazole 40 mg SDV IVP (20:23)
[2022-05-22] VITALS (10 sets, daily range): BP systolic 133–165; BP diastolic 59–84; PULSE 68–87; RESP 16–23; TEMP 36.6–37.2; O2SAT 91–97
[2022-05-22] MEDS: vancomycin 1,500 MG/300 ML PIGGYBACK 200 MG IV (02:13)
[2022-05-22 04:53] LABS: Basophils # 0.1 10^3/uL (0.0-0.1); Basophils % 0.7 %; Eosinophils # 0.3 10^3/uL (0.0-0.8); Eosinophils % 2.6 %; Hematocrit 41.8 % (37.0-47.0); Hemoglobin 10.8 g/dL (11.5-15.3); Lymphocytes # 1.4 10^3/uL (0.8-4.8); Lymphocytes % 14.2 %; Mean Corpuscular HGB Conc 25.8 g/dL (30.0-36.0); Mean Corpuscular Hemoglobin 22.4 pg (28.0-34.0); Mean Corpuscular Volume 86.7 fl (81-99); Mean Platelet Volume 8.5 fL (7.4-10.4); Monocytes % 9.9 %; Neutrophils # 7.32 10^3/uL (1.8-7.7); Neutrophils % 72.4 %; Nucleated Red Blood Cells % 0 %; Platelet Count 278 10^3/cmm (130-400); Red Blood Count 4.82 10^6/uL (4.1-5.3); Red Cell Distribution Width 21.2 % (12.1-15.1); White Blood Count 10.1 10^3/uL (4.0-10.0)
[2022-05-22] MEDS: FUROsemide 10 mg/mL SDV 4mL 40 MG IVP ×2 (05:15→18:02)
[2022-05-22 05:16] LABS: Blood Urea Nitrogen 11 mg/dL (6-20); Calcium 11.4 mg/dL (8.5-10.5); Carbon Dioxide 40 mmol/L (22-29); Chloride 95 mmol/L (98-107); Glomerular Filtration Rate 76.9 mL/min (90-130); Glucose 120 mg/dL (65-115); Magnesium 1.8 mg/dL (1.7-2.3); NT Pro B Type Natriuretic Pept 313 pg/mL (0-125); Osmolality Calculated 295 mOsm/kg (285-295); Sodium 142 mmol/L (136-145)
[2022-05-22] MEDS: amlodipine 10 mg Tablet PO (08:28)
[2022-05-22] MEDS: metoprolol tartrate 25 mg Tablet PO ×2 (08:28→20:21)
[2022-05-22] MEDS: spironolactone 25 mg Tablet PO (08:29)
[2022-05-22] MEDS: potassium chloride ER 20 mEq Tablet 40 MEQ PO (08:29)
[2022-05-22] MEDS: acetaminophen 325 mg Tablet 650 MG PO (08:29)
[2022-05-22] MEDS: ondansetron 2 mg/ML SDV 2 mL 4 MG IVP ×2 (08:30→16:25)
[2022-05-22] MEDS: doxycycline 100 mg Tablet PO ×2 (09:14→18:01)
[2022-05-22] MEDS: metOLazone 5 MG Tablet PO (10:29)
--- NOTE | 2022-05-22 15:23 | PM.PN ---
Subjective Subjective: Patient tells me she is doing a lot better, she continues to have lower extremity pitting edema, 2+, but overall she feels a lot better Vitals/I&O/Wt Last Vital Signs Temp 98.1 F 05/22/22 11:23 Pulse 70 05/22/22 14:00 Resp 16 05/22/22 13:08 BP 134/84 05/22/22 13:08 Pulse Ox 92 05/22/22 13:08 O2 Del Method 05/22/22 13:08 O2 Flow Rate 4 05/22/22 13:08 05/22/22 05/22/22 05/22/22 06:59 14:59 22:59 Intake Total 350 / 1704 720 / 720 Output Total 2500 / 5300 2450 / 2450 Balance -2150 / -3596 -1730 / -1730 Physical Exam Const: COMMON NORMALS: no acute distress and patient oriented x3 Resp: COMMON NORMALS: normal respiratory effort, No retractions, No use of accessory muscles and clear to auscultation bilaterally AUSCULTATION: clear to auscultation bilaterally Cardio: COMMON NORMALS: regular rate, regular rhythm, S1 normal heart sound present and S2 normal heart sound present RATE: regular rate RHYTHM: regular rhythm HEART SOUNDS: S1 normal heart sound present and S2 normal heart sound present GI: COMMON NORMALS: Normal to inspection, nondistended, normoactive bowel sounds present and non-tender Extremity: NARRATIVE EXTREMITY EXAM: 2+ pitting edema Neuro: COMMON NORMALS: patient oriented x3 Psych: COMMON NORMALS: mental status grossly normal Urinary Catheter Management: Sharp Latex: Cath Placed During This Visit: yes Reason for Continuing Indwelling Catheter: Other Urinary Catheter Date of Insertion: 05/19/22 Urinary Catheter Time of Insertion: 19:45 Data 05/22/22 04:19 05/22/22 04:19 A&P Assessment and plan (1) Chest pain: (2) Hypertensive urgency: (3) CHF exacerbation: (4) Lower extremity edema: (5) Cellulitis: (6) Hypoxia: (7) Hypokalemia: Plan Hypertensive urgency -Resolved -Currently denies any chest pain, no strokelike symptoms, no shortness of breath -Off nitroglycerin drip -Aldactone 25 mg once daily -Norvasc 10 mg once daily -Metoprolol 25 twice daily CHF exacerbation -Likely diastolic CHF exacerbation -Seems like diastolic CHF exacerbation -Fluid restrictions 1200 cc -Place Sharp catheter - - 13 L -Lasix IV push every 12 hours, 1 dose of metolazone this morning -Slowly diuresis -Monitor creatinine, monitor potassium, magnesium Chest pain complaints -None currently -Continue telemetry monitoring -Cardiac echo 1-Normal left ventricular size, systolic function and wall ?thickness, with no regional wall motion abnormalities.? Left ?ventricular ejection fraction is estimated at 60 %. Grade I/IV ?diastolic dysfunction (abnormal relaxation filling pattern), ?normal to mildly elevated filling pressures. ?2-There is no pericardial effusion. ?3-No significant valve abnormalities. ?4-Right atrial pressure is around 5 mm of mercury. Bilateral lower extremity cellulitis -De-escalate to doxycycline 100 twice daily Morbid obesity Full code Lovenox for DVT prophylaxis Attestations Medical Necessity Statement*: Patient requires hospitalization for CHF exacerbation, diastolic, requiring diuresis Diagnoses Chest pain R07.9 Hypertensive urgency I16.0 CHF exacerbation I50.9 Lower extremity edema R60.0 Cellulitis L03.90 Hypoxia R09.02 Hypokalemia E87.6
[2022-05-22] MEDS: TRAMadol 50 mg Tablet 25 MG PO (16:24)
[2022-05-22] MEDS: enoxaparin 40 mg/0.4 mL Syringe SUBCUT (20:21)
[2022-05-22] MEDS: pantoprazole 40 mg SDV IVP (20:21)
[2022-05-23] VITALS (10 sets, daily range): BP systolic 118–143; BP diastolic 51–62; PULSE 74–98; RESP 18–19; TEMP 36.4–37.3; O2SAT 87–94
[2022-05-23] MEDS: ondansetron 2 mg/ML SDV 2 mL 4 MG IVP (01:52)
[2022-05-23] MEDS: acetaminophen 325 mg Tablet 650 MG PO ×2 (02:26→10:49)
[2022-05-23 04:26] LABS: Basophils # 0.1 10^3/uL (0.0-0.1); Eosinophils # 0.3 10^3/uL (0.0-0.8); Eosinophils % 3.1 %; Hematocrit 40.1 % (37.0-47.0); Hemoglobin 10.9 g/dL (11.5-15.3); Lymphocytes # 1.5 10^3/uL (0.8-4.8); Lymphocytes % 14.2 %; Mean Corpuscular HGB Conc 27.2 g/dL (30.0-36.0); Mean Corpuscular Hemoglobin 22.9 pg (28.0-34.0); Mean Corpuscular Volume 84.4 fl (81-99); Monocytes # 1.2 10^3/uL (0.2-0.9); Monocytes % 11.3 %; Neutrophils # 7.36 10^3/uL (1.8-7.7); Neutrophils % 70.1 %; Nucleated Red Blood Cells % 0 %; Platelet Count 275 10^3/cmm (130-400); Red Blood Count 4.75 10^6/uL (4.1-5.3); Red Cell Distribution Width 20.3 % (12.1-15.1); White Blood Count 10.5 10^3/uL (4.0-10.0)
[2022-05-23 04:57] LABS: Anion Gap 9.7 (5-19); Blood Urea Nitrogen 14 mg/dL (6-20); Chloride 90 mmol/L (98-107); Glomerular Filtration Rate 76.9 mL/min (90-130); Glucose 105 mg/dL (65-115); Magnesium 1.5 mg/dL (1.7-2.3); NT Pro B Type Natriuretic Pept 204 pg/mL (0-125); Osmolality Calculated 289 mOsm/kg (285-295); Phosphorus 2.8 mg/dL (2.5-4.5); Potassium 3.7 mmol/L (3.5-5.1); Sodium 139 mmol/L (136-145)
[2022-05-23 05:08] LABS: Carbon Dioxide 43 mmol/L (22-29)
[2022-05-23] MEDS: FUROsemide 10 mg/mL SDV 4mL 40 MG IVP (05:26)
[2022-05-23] MEDS: metoprolol tartrate 25 mg Tablet PO ×2 (09:52→19:53)
[2022-05-23] MEDS: doxycycline 100 mg Tablet PO ×2 (09:52→18:03)
[2022-05-23] MEDS: metOLazone 5 MG Tablet PO ×2 (09:53→09:54)
[2022-05-23] MEDS: potassium chloride ER 20 mEq Tablet 40 MEQ PO (09:53)
[2022-05-23] MEDS: acetaZOLAMIDE 250 mg Tablet PO (09:54)
[2022-05-23] MEDS: spironolactone 25 mg Tablet PO (09:54)
[2022-05-23] MEDS: amlodipine 10 mg Tablet PO (09:54)
[2022-05-23] MEDS: magnesium sulfate premix 4 GM/100 ML PREMIX IV (10:16)
--- NOTE | 2022-05-23 13:30 | P.PN_ITS ---
Subjective Subjective: Patient was seen this morning, she feels significantly better, her nausea has improved, no fevers, chills, her edema has significantly improved, she still feels a bit fluid overloaded but overall she is significantly improved Vitals/I&O/Wt Last Vital Signs Temp 97.6 F 05/23/22 12:00 Pulse 76 05/23/22 08:00 Resp 18 05/23/22 04:00 BP 124/52 05/23/22 12:00 Pulse Ox 87 L 05/23/22 12:00 O2 Del Method 05/23/22 08:00 O2 Flow Rate 5 05/23/22 08:00 05/22/22 05/23/22 05/23/22 22:59 06:59 14:59 Intake Total 240 / 960 460 / 460 Output Total 1750 / 4200 1350 / 5550 2300 / 2300 Balance -1510 / -3240 -1350 / -4590 -1840 / -1840 Physical Exam Const: COMMON NORMALS: no acute distress and patient oriented x3 Resp: COMMON NORMALS: normal respiratory effort, No retractions, No use of accessory muscles and clear to auscultation bilaterally AUSCULTATION: clear to auscultation bilaterally Cardio: COMMON NORMALS: regular rate, regular rhythm, S1 normal heart sound present and S2 normal heart sound present RATE: regular rate RHYTHM: regular rhythm HEART SOUNDS: S1 normal heart sound present and S2 normal heart sound present GI: COMMON NORMALS: Normal to inspection, nondistended, normoactive bowel sounds present and non-tender Extremity: NARRATIVE EXTREMITY EXAM: 1+ pitting edema Neuro: COMMON NORMALS: patient oriented x3 Psych: COMMON NORMALS: mental status grossly normal Urinary Catheter Management: Sharp Latex: Cath Placed During This Visit: yes Reason for Continuing Indwelling Catheter: Accurate Measurement of Urinary Output in Critically Ill Patients Urinary Catheter Date of Insertion: 05/19/22 Urinary Catheter Time of Insertion: 19:45 Data 05/23/22 03:38 05/23/22 03:38 A&P Assessment and plan (1) Chest pain: (2) Hypertensive urgency: (3) CHF exacerbation: (4) Lower extremity edema: (5) Cellulitis: (6) Hypoxia: (7) Hypokalemia: Plan Hypertensive urgency -Resolved -Currently denies any chest pain, no strokelike symptoms, no shortness of breath -Off nitroglycerin drip -Aldactone 25 mg once daily -Norvasc 10 mg once daily -Metoprolol 25 twice daily CHF exacerbation -Likely diastolic CHF exacerbation -Seems like diastolic CHF exacerbation -Fluid restrictions 1200 cc -Will de-escalate Sharp cath in the next 24 hours - - 17 L -Her GFR has gone up to 76, elevated BUN, decreased chloride, will give her 1 more dose of IV Lasix with metolazone -Monitor kidney function tomorrow, likely discharge tomorrow -Monitor creatinine, monitor potassium, magnesium Chest pain complaints -None currently -Continue telemetry monitoring -Cardiac echo 1-Normal left ventricular size, systolic function and wall ?thickness, with no regional wall motion abnormalities.? Left ?ventricular ejection fraction is estimated at 60 %. Grade I/IV ?diastolic dysfunction (abnormal relaxation filling pattern), ?normal to mildly elevated filling pressures. ?2-There is no pericardial effusion. ?3-No significant valve abnormalities. ?4-Right atrial pressure is around 5 mm of mercury. Bilateral lower extremity cellulitis -De-escalate to doxycycline 100 twice daily Morbid obesity Full code Lovenox for DVT prophylaxis Attestations Medical Necessity Statement*: Patient requires hospitalization for hypertensive urgency, CHF exacerbation Coding Level of Care Code 57024 Moderate MDM includes number and complexity of problems actively addressed during encounter, amount and/or complexity of data reviewed/ordered and described risk of complication, morbidity or mortality of management as docu mented Diagnoses Chest pain R07.9 Hypertensive urgency I16.0 CHF exacerbation I50.9 Lower extremity edema R60.0 Cellulitis L03.90 Hypoxia R09.02 Hypokalemia E87.6
[2022-05-23] MEDS: pantoprazole 40 mg SDV IVP (19:53)
[2022-05-24] VITALS (8 sets, daily range): BP systolic 127–143; BP diastolic 57–70; PULSE 67–83; RESP 14–24; TEMP 36.6–37; O2SAT 87–98
[2022-05-24] MEDS: TRAMadol 50 mg Tablet 25 MG PO (01:05)
[2022-05-24 08:17] LABS: Basophils # 0.1 10^3/uL (0.0-0.1); Basophils % 0.9 %; Eosinophils # 0.4 10^3/uL (0.0-0.8); Eosinophils % 4.5 %; Hemoglobin 11.6 g/dL (11.5-15.3); Lymphocytes # 1.4 10^3/uL (0.8-4.8); Lymphocytes % 15.2 %; Mean Corpuscular HGB Conc 27.6 g/dL (30.0-36.0); Mean Corpuscular Hemoglobin 22.8 pg (28.0-34.0); Mean Corpuscular Volume 82.7 fl (81-99); Mean Platelet Volume 8.7 fL (7.4-10.4); Monocytes % 10.1 %; Neutrophils # 6.54 10^3/uL (1.8-7.7); Nucleated Red Blood Cells % 0 %; Platelet Count 277 10^3/cmm (130-400); Red Blood Count 5.08 10^6/uL (4.1-5.3); Red Cell Distribution Width 20.2 % (12.1-15.1); White Blood Count 9.5 10^3/uL (4.0-10.0)
[2022-05-24 08:51] LABS: Alanine Aminotransferase 10 U/L (0-33); Albumin Level 3.9 g/dL (3.5-5.2); Alkaline Phosphatase 150 U/L (35-105); Anion Gap 13.7 (5-19); Aspartate Amino Transferase 13 U/L (0-32); Blood Urea Nitrogen 16 mg/dL (6-20); Calcium 11.8 mg/dL (8.5-10.5); Carbon Dioxide 39 mmol/L (22-29); Chloride 85 mmol/L (98-107); Globulin 3.8 g/dL (1.3-4.6); Glomerular Filtration Rate 89.7 mL/min (90-130); Glucose 109 mg/dL (65-115); Magnesium 1.8 mg/dL (1.7-2.3); Osmolality Calculated 280 mOsm/kg (285-295); Phosphorus 2.8 mg/dL (2.5-4.5); Potassium 3.7 mmol/L (3.5-5.1); Sodium 134 mmol/L (136-145); Total Bilirubin 1.1 mg/dL (0.15-1.2); Total Protein 7.7 g/dL (6.6-8.7)
[2022-05-24] MEDS: spironolactone 25 mg Tablet PO (09:43)
[2022-05-24] MEDS: metoprolol tartrate 25 mg Tablet PO (09:43)
[2022-05-24] MEDS: potassium chloride ER 20 mEq Tablet 40 MEQ PO (09:44)
[2022-05-24] MEDS: doxycycline 100 mg Tablet PO ×2 (09:44→16:43)
[2022-05-24] MEDS: metOLazone 5 MG Tablet PO (09:44)
[2022-05-24] MEDS: amlodipine 10 mg Tablet PO (09:44)
[2022-05-24] MEDS: FUROsemide 10 mg/mL SDV 4mL 40 MG IVP (10:38)
--- NOTE | 2022-05-24 10:41 | PM.DCS ---
Discharge Providers Date of Admission: 05/19/22 20:58 Date of Discharge: May 24, 2022 Attending Provider at Admission: Mehrdad Jimenez MD Attending Provider at Discharge: Mehrdad Jimenez MD Primary Care Provider: Jus Espinal MD Diagnoses at Discharge Discharge Diagnosis (1) Chest pain: Status: Acute (2) Hypertensive urgency: Status: Acute (3) CHF exacerbation: Status: Acute (4) Lower extremity edema: Status: Acute (5) Cellulitis: Status: Acute (6) Hypoxia: Status: Acute (7) Hypokalemia: Status: Acute Reason for Visit Reason for Visit: legs swollen and both have sores Hospital Course Hospital Course Tammie Ayala is a 46 year old female with no significant past medical history except morbid obesity, she has not seen a physician in a long time, who presents to [facility] due to increased shortness of breath, lower extremity edema, bilateral weeping edema with concerns for infection however legs.? She tells me that she has been feeling short of breath for some time, but she has progressively felt increasingly short of breath with exertion, now she is short of breath with less than a few feet, short of breath with showering, she is developed significant worsening lower extremity edema now is developed weeping edema such as the blisters rupture and they weep fluid.? She is also developed irritation of the skin around it, she is worried about infection.? She also describes twinging in her chest, possible chest pain in the left side of her chest lasting a few seconds, nonradiating, no orthopnea, probable paroxysmal nocturnal dyspnea.? No fevers, no chills.? She denies smoking.? No history of alcohol use.? No history of drug use.? She also reports increased abdominal wall edema, fullness in her abdominal wall.? She denies any history of hypertension, but her blood pressure was 231/105, she has not received any medication to bring down her blood pressure, she denies any headache, no blurry vision, no nausea, no vomiting, no focal neurologic deficits, no paresthesias Patient was admitted to [facility] for hypertensive urgency with diastolic CHF exacerbation For hypertensive urgency, blood pressures were managed initially with nitroglycerin drip, then transition to p.o. medications, overall did well, blood pressures well controlled during hospitalization, discharged on amlodipine, spironolactone, metoprolol For patient's diastolic CHF exacerbation, she was diuresed as inpatient, over 21 L, overall clinically improved, still having some pitting edema on discharge. She will be discharged with Lasix 40 mg once daily with potassium replacement therapy with relief check of her kidney function and potassium through Dr. Espinal on Saturday. Follow-up with cardiology in 1 week. For hypoxia secondary diastolic CHF, discharged on oxygen therapy, wean as outpatient Patient likely has sleep apnea, instructed to speak to primary care provider about sleep study Physical Exam Const: COMMON NORMALS: no acute distress and patient oriented x3 Resp: COMMON NORMALS: normal respiratory effort, No retractions, No use of accessory muscles and clear to auscultation bilaterally AUSCULTATION: clear to auscultation bilaterally Cardio: COMMON NORMALS: regular rate, regular rhythm, S1 normal heart sound present and S2 normal heart sound present RATE: regular rate RHYTHM: regular rhythm HEART SOUNDS: S1 normal heart sound present and S2 normal heart sound present GI: COMMON NORMALS: Normal to inspection, nondistended, normoactive bowel sounds present and non-tender Extremity: NARRATIVE EXTREMITY EXAM: 1+ pitting edema Neuro: COMMON NORMALS: patient oriented x3 Psych: COMMON NORMALS: mental status grossly normal Urinary Catheter Management: Sharp Latex: Cath Placed During This Visit: yes Reason for Continuing Indwelling Catheter: Accurate Measurement of Urinary Output in Critically Ill Patients Urinary Catheter Date of Insertion: 05/19/22 Urinary Catheter Time of Insertion: 19:45 Discharge Data Studies Completed and Pending Completed Studies During Hospitalization Category Date Time Status CT abdomen pelvis w con* [id number] Stat Cat Scan 05/19/22 16:11 Completed XR chest 1V portable [id number] Stat Exams 05/19/22 14:59 [place] [id number] Stat Ultrasound 05/19/22 18:22 Completed CV. echo wo/w contrast [id number] Routine Ultrasound 05/20/22 06:00 Completed Pending at discharge Category Date Time Status Blood Culture Stat Lab 05/19/22 19:35 Results Radiology Impressions Chest X-Ray 05/19/22 14:59 IMPRESSION: Increased heart size with mild cardiomegaly. Abdomen/Pelvis CT 05/19/22 16:11 IMPRESSION: 1. Question of lower abdominal wall cellulitis 2. No acute intra-abdominal finding. Venous Duplex 05/19/22 18:22 IMPRESSION: No evidence of deep vein thrombosis. Laboratory Results WBC 9.5 10^3/uL (4.0-10.0) 05/24/22 08:05 RBC 5.08 10^6/uL (4.1-5.3) 05/24/22 08:05 Hgb 11.6 g/dL (11.5-15.3) 05/24/22 08:05 Hct 42.0 % (37.0-47.0) 05/24/22 08:05 MCV 82.7 fl (81-99) 05/24/22 08:05 MCH 22.8 pg (28.0-34.0) L 05/24/22 08:05 MCHC 27.6 g/dL (30.0-36.0) L 05/24/22 08:05 RDW 20.2 % (12.1-15.1) H 05/24/22 08:05 Plt Count 277 10^3/cmm (130-400) 05/24/22 08:05 MPV 8.7 fL (7.4-10.4) 05/24/22 08:05 Neut % (Auto) 69.0 % 05/24/22 08:05 Lymph % (Auto) 15.2 % 05/24/22 08:05 [place] % (Auto) 10.1 % 05/24/22 08:05 Eos % (Auto) 4.5 % 05/24/22 08:05 Baso % (Auto) 0.9 % 05/24/22 08:05 Neut # (Auto) 6.54 10^3/uL (1.8-7.7) 05/24/22 08:05 Lymph # (Auto) 1.4 10^3/uL (0.8-4.8) 05/24/22 08:05 [place] # (Auto) 1.0 10^3/uL (0.2-0.9) H 05/24/22 08:05 Eos # (Auto) 0.4 10^3/uL (0.0-0.8) 05/24/22 08:05 Baso # (Auto) 0.1 10^3/uL (0.0-0.1) 05/24/22 08:05 Nucleated RBC % (auto) 0 % 05/24/22 08:05 Nucleated RBCs # 0.0 /100WBC 05/24/22 08:05 ESR 46 mm/hr (0-15) H 05/19/22 15:15 Sodium 134 mmol/L (136-145) L 05/24/22 08:05 Potassium 3.7 mmol/L (3.5-5.1) 05/24/22 08:05 Chloride 85 mmol/L (98-107) L 05/24/22 08:05 Carbon Dioxide 39 mmol/L (22-29) H 05/24/22 08:05 Anion Gap 13.7 (5-19) 05/24/22 08:05 BUN 16 mg/dL (6-20) 05/24/22 08:05 Creatinine 0.7 mg/dL (0.5-0.9) 05/24/22 08:05 GFR Calculation 89.7 mL/min (90-130) L 05/24/22 08:05 Glucose 109 mg/dL (65-115) 05/24/22 08:05 Estimat Average Glucose 128 05/19/22 22:00 Hemoglobin A1c 6.1 % (4.0-6.0) H 05/19/22 22:00 Calculated Osmolality 280 mOsm/kg (285-295) L 05/24/22 08:05 Lactate 1.2 mmol/L (0.5-2.2) 05/19/22 15:15 Calcium 11.8 mg/dL (8.5-10.5) H 05/24/22 08:05 Phosphorus 2.8 mg/dL (2.5-4.5) 05/24/22 08:05 Magnesium 1.8 mg/dL (1.7-2.3) 05/24/22 08:05 Total Bilirubin 1.1 mg/dL (0.15-1.2) 05/24/22 08:05 AST 13 U/L (0-32) 05/24/22 08:05 ALT 10 U/L (0-33) 05/24/22 08:05 Alkaline Phosphatase 150 U/L (35-105) H 05/24/22 08:05 Troponin T Baseline 9 ng/L (0-10) 05/19/22 19:28 Troponin T 120 Minute 11.04 ng/L (0-10) H 05/19/22 22:00 Delta Troponin T 2.04 ABS# (0-10) 05/19/22 22:00 Troponin T Hi Sens 6Hr 11.15 ng/L (0-10) H 05/20/22 01:19 Troponin T Hi Sens 6Hr Delta 2.15 ng/L (0-12) 05/20/22 01:19 C-Reactive Protein 7.7 mg/L (0.0-4.9) H 05/19/22 15:15 NT-Pro-B Natriuret Pep 204 pg/mL (0-125) H 05/23/22 03:38 Total Protein 7.7 g/dL (6.6-8.7) 05/24/22 08:05 Albumin 3.9 g/dL (3.5-5.2) 05/24/22 08:05 Globulin 3.8 g/dL (1.3-4.6) 05/24/22 08:05 Triglycerides 87 mg/dL (0-150) 05/19/22 22:00 Cholesterol 144 mg/dL (0-200) 05/19/22 22:00 LDL Cholesterol, Calc 89 mg/dL (50-129) 05/19/22 22:00 HDL Cholesterol 38 mg/dL (60-100) L 05/19/22 22:00 LDL/HDL Ratio 2.34 RATIO (0.00-3.22) 05/19/22 22:00 Cholesterol/HDL Ratio 3.79 mg/dL (0.0-4.40) 05/19/22 22:00 Procalcitonin 0.04 ng/mL (0-0.5) 05/19/22 15:15 TSH 1.67 uIU/mL (0.27-4.20) 05/19/22 22:00 HCG, Qual Negative (Negative) 05/19/22 16:20 Urine Color Yellow (Yellow) 05/19/22 16:20 Urine Appearance Clear (CLEAR) 05/19/22 16:20 Urine pH 7 (5-7) 05/19/22 16:20 Ur Specific [place] 1.015 (1.005-1.030) 05/19/22 16:20 Urine Protein Neg (Negative) 05/19/22 16:20 Urine Glucose (UA) Norm (Normal) 05/19/22 16:20 Urine Ketones Negative (Negative) 05/19/22 16:20 Urine Blood Neg (Negative) 05/19/22 16:20 Urine Nitrate Negative (Negative) 05/19/22 16:20 Urine Bilirubin Neg (Negative) 05/19/22 16:20 Urine Urobilinogen 1 mg/dL (Negative) H 05/19/22 16:20 Ur Leukocyte Esterase Negative (Negative) 05/19/22 16:20 Vancomycin Trough 17.7 ug/mL (10-15) H 05/21/22 10:15 Vitals Last Vital Signs Temp 98.6 F 05/24/22 07:47 Pulse 83 05/24/22 08:00 Resp 19 H 05/24/22 07:47 BP 132/57 05/24/22 07:47 Pulse Ox 96 05/24/22 08:00 O2 Del Method 05/24/22 08:00 O2 Flow Rate 4 05/24/22 08:00 Discharge Plan Discharge Patient Disposition: Home Condition: Stable Prescriptions: New potassium chloride [Klor-Con M20] 20 mEq Tablet,Er Particles/Crystals 20 meq PO DAILY 30 Days Qty: 30 0RF doxycycline monohydrate 100 mg Tablet 100 mg PO BID 5 Days Qty: 10 0RF magnesium L-lactate [Magtab] 84 mg tablet extended release 84 mg PO DAILY 30 Days Qty: 30 0RF amlodipine 10 mg Tablet 10 mg PO DAILY 30 Days Qty: 30 0RF metoprolol tartrate 25 mg Tablet 25 mg PO Q12H 30 Days Qty: 60 0RF spironolactone 25 mg Tablet 25 mg PO DAILY 30 Days Qty: 30 0RF furosemide [Lasix] 40 mg tablet 40 mg PO DAILY 30 Days Qty: 30 0RF No Action No Known Home Medications Discharge Orders: Discharge Order (Routine); Ordered 05/24/22 Ordered By: Mehrdad Jimenez Other Ambulatory Orders: DME: Inderjit (Order) Location: None Selected Ordered By: Mehrdad Jimenez Referrals: Jus Espinal MD [Primary Care Provider] - 1-3 days Franca Gutierrez MD [Physician] - 1 week Discharge Diet: Cardiac Discharge Activity: Resume usual activity Patient Instructions: Heart Failure (DC), Low-Sodium Diet (DC), Opioid Safety Activity Restrictions/Additional Instructions: - Please limit fluid intake between 1 L to 1.5 L a day -Take Lasix 40 mg once a day with potassium replacement -See Dr. Espinal on Saturday for recheck kidney function, and your potassium -Take blood pressure medication as prescribed -Follow cardiology in 1 week Discharge Attestations Time Spent in Discharge Care*: greater than 30 min Quality Metrics Clinical Quality Measures [ No reported AMI, CVA or VTE this stay] Coding Level of Care Code 31996 Total time (in minutes) for Discharge: 40 Diagnoses Chest pain R07.9 Hypertensive urgency I16.0 CHF exacerbation I50.9 Lower extremity edema R60.0 Cellulitis L03.90 Hypoxia R09.02 Hypokalemia E87.6
--- NOTE | 2022-05-24 17:40 | PC.NURSE ---
discharge instructions given and explained.pt verb understanding of instructions.medications provided by [facility] meds to beds program.discharged via w/c to exit at this time.daughter to drive pt home
== END 2022-05-24 17:42 | disposition home or self-care (01) | DRG 291 ==
LOC: ER 17:36 → CSU 05-20 07:04
PROVIDERS: Admitting Provider Family Medicine; Emergency Provider Emergency Medicine; PCP Family Medicine; Visit Provider Family Medicine
DX: I11.0 Hypertensive heart disease with heart failure (principal); I50.31 Acute diastolic (congestive) heart failure; Z68.44 Body mass index [BMI] 60.0-69.9, adult; L03.116 Cellulitis of left lower limb; L03.115 Cellulitis of right lower limb; I16.0 Hypertensive urgency; E66.01 Morbid (severe) obesity due to excess calories; G47.30 Sleep apnea, unspecified; E87.6 Hypokalemia
CPT/HCPCS: 36415; 51702; 71045; 74177; 80048; 80053; 80061; 80202; 81003; 81025; 83036; 83605; 83735; 83880; 84100; 84145; 84443; 84484; 85025; 85651; 86140; 87040; 87641; 93005; 93970; 94760; 96365; 96372; 96376; 99285; C8929; C9113; J0692; J1650; J1940; J2405; J2765; J3370; J3475; J3490; Q9956; Q9967

== ENCOUNTER → 2022-07-12 13:03 | Outpatient (BNVA) | payer BC, SELFPAY | PROVIDERS: PCP Family Medicine; Visit Provider Internal Medicine Cardiovascular Disease | DX: I11.0 Hypertensive heart disease with heart failure (principal); I50.33 Acute on chronic diastolic (congestive) heart failure; R07.9 Chest pain, unspecified; E66.01 Morbid (severe) obesity due to excess calories; Z68.43 Body mass index [BMI] 50.0-59.9, adult | CPT/HCPCS: 80048; 83880 ==

== ENCOUNTER 2023-04-03 21:27 | Inpatient (IN) | payer BC, SELFPAY ==
[2023-04-03] VITALS (9 sets, daily range): BP systolic 136–191; BP diastolic 71–90; PULSE 85–94; RESP 16–40; O2SAT 83–98
--- NOTE | 2023-04-03 21:49 | XRR_ITS ---
PROCEDURE INFORMATION: Exam: XR Chest Exam date and time: 04/03/2023 9:58 PM Age: 47 years old Clinical indication: Dyspnea TECHNIQUE: Imaging protocol: Radiologic exam of the chest. Views: 1 view. COMPARISON: CR XR chest 1V portable [id number] 05/19/2022 3:10 PM FINDINGS: Lungs: No focal consolidation. There is pulmonary vascular congestion. Pleural spaces: No evidence of pneumothorax. No evidence of pleural effusion. Heart/Mediastinum: Nonspecific opacity in the right hilar region. Correlation with CT is recommended to exclude mass and/or hilar adenopathy. Bones/joints: No evidence of acute osseous abnormality. XR/XR chest 1V portable [id number] IMPRESSION: 1. Pulmonary vascular congestion. 2. Nonspecific opacity in the right hilar region. Correlation with CT is recommended to exclude mass and/or hilar adenopathy.
--- NOTE | 2023-04-03 21:50 | ECG_ITS ---
[facility] Test Date: 2023-04-03 Pat Name: Tammie Ayala Department: Room: Gender: Female Assistant Sales Manager: : 1975 Requested By: Kaiser Gerard Order Number: [id number] Mac MD: Harish Garcia M.D. Measurements Intervals [place] Rate: 89 P: 44 SD: 149 QRS: 11 QRSD: 97 T: 65 QT: 344 QTc: 419 Interpretive Statements SINUS RHYTHM NONSPECIFIC T-WAVE ABNORMALITY Compared to ECG 05/20/2022 00:33:11 T-wave abnormality now present Electronically Signed On 04-06-2023 23:20:50 OUTPATIENT THERAPIST by Harish Garcia M.D. [email or web address]
--- NOTE | 2023-04-03 21:51 | ED_ITS ---
HPI - SOB/Dyspnea 2 General: Chief Complaint: Shortness of Breath/Dyspnea Stated Complaint: sob, slurred speech Time Seen by Provider: 04/03/23 21:45 History of Present Illness: HPI Narrative: Patient presents to the ER with complaints of shortness of breath and fluid overload. Patient states this been going on for the last couple weeks but really gotten worse over the last couple days. Patient is normally on home oxygen at approximately 4 L but today she turned up to 5 L and did not help much. Patient presented to the ER and was 70% on room air. Patient was placed on 5 L per nasal cannula this increased her saturation up to 83% in triage and then placed was placed on a nonrebreather which increased her saturation up to 100%. Patient denies any coughs colds fevers chills nausea vomiting chest pain. Patient states that she feels fluid overloaded and has a weeping sores on her legs from this. Patient does have a diagnosis of CHF and is on Lasix and spironolactone and takes these routinely but has missed 1 recent dose.. Review of Systems 2 General: Reports: 10 or more systems reviewed and unremarkable except in HPI and below PFSH ED 2 PFSH: Medical History Morbid obesity Surgical History History of History of cholecystectomy Family History Father CAD (coronary artery disease) Mother CAD (coronary artery disease) Social History Smoking and tobacco/nicotine status: never used tobacco/nicotine Alcohol intake: never Substance/Drug Use: never Physical Exam 2 Const: COMMON NORMALS: no acute distress, average body habitus, patient oriented x3, no limitations, healthy appearing, alert and well nourished HENMT: COMMON NORMALS: normocephalic, atraumatic, hearing grossly normal bilaterally, external ears normal, Normal external nose present, moist oral mucous membranes and oropharynx normal HEAD & SCALP: normocephalic and atraumatic NOSE: Normal external nose present EXTERNAL EAR: Yes external ears normal Neck/C-Spine: COMMON NORMALS: full ROM, no lymphadenopathy, supple, no meningeal signs, no JVD and Thyroid normal THYROID: Thyroid normal Chest: COMMONS NORMALS: normal inspection of the chest and normal palpation of entire chest wall Resp: COMMON NORMALS: normal respiratory effort, No retractions and No use of accessory muscles; negative for clear to auscultation bilaterally (Decreased breath sounds bilaterally) AUSCULTATION: not clear to auscultation bilaterally (Decreased breath sounds bilaterally) Cardio: COMMON NORMALS: no JVD, regular rate, regular rhythm, S1 normal heart sound present, S2 normal heart sound present, No gallops present (Cardio), No clicks present (Cardio) and No murmurs present (Cardio) RATE: regular rate RHYTHM: regular rhythm HEART SOUNDS: S1 normal heart sound present and S2 normal heart sound present GI: COMMON NORMALS: Normal to inspection, nondistended, normoactive bowel sounds present (Morbid obesity), Soft to palpation, non-tender, No hepatosplenomegaly present and no masses PALPATION: Yes Soft to palpation and Yes No hepatosplenomegaly present Neuro: COMMON NORMALS: patient oriented x3 SENSORIUM/ORIENTATION: Yes alert MENINGEAL SIGNS: Yes no meningeal signs Course 2 Vital Signs: Vital signs: Vital Signs Pulse Rate 88 04/04/23 02:15 Respiratory Rate 18 04/04/23 02:40 Blood Pressure 147/83 04/04/23 02:15 Pulse Oximetry 96 04/04/23 02:40 Oxygen Delivery Me thod BiPAP 04/04/23 02:15 Oxygen Flow Rate 10 04/03/23 22:21 Fraction of Inspir ed Oxygen 65 04/03/23 23:53 MDM - SOB/Dyspnea Medical Decision Making Patient to be placed on a nonrebreather at 15 L to get her oxygen saturation up above 85%. ABG was obtained which showed a pCO2 of 84, CBC showed white count of 10.3 chest x-ray showed pulmonary vascular congestion, other lab work pending. Patient will be placed on BiPAP. Dr. Dowd was consulted and agreed to place patient in ICU for further evaluation and treatment. Differential Diagnosis Likely congestive heart failure; Unlikely acute exacerbation of chronic obstructive airways disease, community acquired pneumonia, asthma with exacerbation or pulmonary embolism Medical Records I reviewed the patient's medical records. Lab Data I reviewed the patient's lab results. 04/03/23 22:00 04/03/23 22:00 Labs/Radiology: Radiology Impressions Chest X-Ray 04/03/23 21:49 IMPRESSION: 1. Pulmonary vascular congestion. 2. Nonspecific opacity in the right hilar region. Correlation with CT is recommended to exclude mass and/or hilar adenopathy. Laboratory Results WBC 10.30 10^3/uL (3.29-11.43) 04/03/23 22:00 RBC 4.41 10^6/uL (3.85-5.65) 04/03/23 22:00 Hgb 10.00 g/dL (11.27-16.99) L 04/03/23 22:00 Hct 37.3 % (36-47) 04/03/23 22:00 MCV 84.6 fl (85-98) L 04/03/23 22:00 MCH 22.7 pg (27-33) L 04/03/23 22:00 MCHC 26.8 g/dL (30-55) L 04/03/23 22:00 RDW 18.7 % (12.1-15.1) H 04/03/23 22:00 Plt Count 286 10^3/cmm (157-399) 04/03/23 22:00 MPV 8.1 fL (7.4-10.4) 04/03/23 22:00 Neut % (Auto) 77.2 % 04/03/23 22:00 Lymph % (Auto) 11.3 % 04/03/23 22:00 [place] % (Auto) 8.5 % 04/03/23 22:00 Eos % (Auto) 1.8 % 04/03/23 22:00 Baso % (Auto) 0.4 % 04/03/23 22:00 Neut # (Auto) 7.95 10^3/uL (1.8-7.7) H 04/03/23 22:00 Lymph # (Auto) 1.2 10^3/uL (0.8-4.8) 04/03/23 22:00 [place] # (Auto) 0.9 10^3/uL (0.2-0.9) 04/03/23 22:00 Eos # (Auto) 0.2 10^3/uL (0.0-0.8) 04/03/23 22:00 Baso # (Auto) 0.0 10^3/uL (0.0-0.1) 04/03/23 22:00 Nucleated RBC % (auto) 0.2 % 04/03/23 22:00 Nucleated RBCs # 0.0 /100WBC 04/03/23 22:00 ESR 101 mm/hr (0-15) H 04/03/23 22:00 Specimen Type Arterial 04/03/23 22:25 Sample Site Brachial, right 04/03/23 22:25 ABG pH 7.33 (7.35-7.45) L 04/03/23 22:25 ABG pCO2 84.0 mmHg (35-45) H* 04/03/23 22: ABG pO2 63.2 mmHg (80.0-100.0) L 04/03/23 22: ABG PO2/FiO2 Ratio 0 04/03/23 22:25 ABG HCO3 44.4 mmol/L (22-26) H 04/03/23 22:25 ABG O2 Saturation 91.3 04/03/23 22:25 ABG Base Excess 15.4 mmol/L (-2.0-2.0) H 04/03/23 22:25 Wesley Test Pos 04/03/23 22:25 A-a O2 Gradient 72.4 mmHg (5-10) H 04/03/23 22:25 Hematocrit 32.7 % (37-47) L 04/03/23 22:25 Hgb O2 Saturation 87.9 % (95-100) L 04/03/23 22:25 Carboxyhemoglobin 2.7 %THgb (0.4-20.1) 04/03/23 22:25 Methemoglobin 1.0 % (0.4-1.5) 04/03/23 22:25 Total Hemoglobin 10.7 g/dL (12-16) L 04/03/23 22:25 Sodium 139.0 mmol/L (131-143) 04/03/23 22:25 Potassium 3.4 mmol/L (3.5-5.0) L 04/03/23 22:25 Glucose 136.0 mg/dL (70-115) H 04/03/23 22:25 Ionized Calcium 1.4 mmol/L (1.1-1.4) 04/03/23 22:25 O2 Delivery Device Nrb 04/03/23 22:25 O2 Liters/Min 10.0 % 04/03/23 22:25 FiO2 100.0 % 04/03/23 22:25 Cartoonist Special Effects ID [email or web address] 04/03/23 22:25 Sodium 138 mmol/L (136-145) 04/03/23 22:00 Potassium 3.5 mmol/L (3.5-5.1) 04/03/23 22:00 Chloride 91 mmol/L (98-107) L 04/03/23 22:00 Carbon Dioxide 41 mmol/L (22-29) H 04/03/23 22:00 Anion Gap 9.5 (5-19) 04/03/23 22:00 BUN 9 mg/dL (6-20) 04/03/23 22:00 Creatinine 0.6 mg/dL (0.5-0.9) 04/03/23 22:00 GFR Calculation 106.7 mL/min (90-130) 04/03/23 22:00 Glucose 133 mg/dL (65-115) H 04/03/23 22:00 Calculated Osmolality 287 mOsm/kg (285-295) 04/03/23 22:00 Calcium 10.6 mg/dL (8.5-10.5) H 04/03/23 22:00 Phosphorus 1.5 mg/dL (2.5-4.5) L 04/03/23 22:00 Magnesium 1.7 mg/dL (1.7-2.3) 04/03/23 22:00 Total Bilirubin 0.6 mg/dL (0.15-1.2) 04/03/23 22:00 AST 6 U/L (0-32) 04/03/23 22:00 ALT 7 U/L (0-33) 04/03/23 22:00 Alkaline Phosphatase 123 U/L (35-105) H 04/03/23 22:00 Troponin T Baseline 10 ng/L (0-10) 04/03/23 22:00 Troponin T 120 Minute 9.86 ng/L (0-10) 04/04/23 00:01 Delta Troponin T -0.14 ABS# (0-10) L 04/04/23 00:01 C-Reactive Protein 65.5 mg/L (0.0-4.9) H 04/03/23 22:00 NT-Pro-B Natriuret Pep 375 pg/mL (0-125) H 04/03/23 22:00 Total Protein 6.5 g/dL (6.6-8.7) L 04/03/23 22:00 Albumin 3.3 g/dL (3.5-5.2) L 04/03/23 22:00 Globulin 3.2 g/dL (1.3-4.6) 04/03/23 22:00 Procalcitonin 0.17 ng/mL (0-0.5) 04/03/23 22:00 HCG, Qual Negative (Negative) 04/03/23 22:00 All radiology interpretation(s) finalized by discharge EKG Data EKG 1: I personally reviewed and interpreted this EKG as follows: EKG Interpretation Date: 04/03/23 EKG interpretation time: 22:12 Prior EKG tracings: available for review Interpretation: Ventricular rate 89 bpm, CO interval 149, QRS 97, QTc 391, sinus rhythm, nonspecific T wave abnormality Critical Care Time 2 Critical Care Time: Critical Care Time: Yes Total Critical Care Time: 45 Attestation: The patient was emergently evaluated this patient's presentation and case had a high probability of a clinically significant, sudden, or life-threatening deterioration of the patient's initial critical presentation or condition which required my full and direct attention, intervention and personal management. Discharge Plan Discharge Patient Disposition: Admitted As Inpatient Admit Provider: Mehrdad Jimenez Clinical Impression: Acute on chronic diastolic (congestive) heart failure, Morbid obesity due to excess calories, Acute respiratory failure with hypoxia and hypercapnia Condition: Stable Coding Level of Care Code ED Mortgage Broker for Mary Anneg Dalia
[2023-04-03 22:10] LABS: Basophils % 0.4 %; Eosinophils # 0.2 10^3/uL (0.0-0.8); Eosinophils % 1.8 %; Hematocrit 37.3 % (36-47); Lymphocytes # 1.2 10^3/uL (0.8-4.8); Lymphocytes % 11.3 %; Mean Corpuscular HGB Conc 26.8 g/dL (30-55); Mean Corpuscular Hemoglobin 22.7 pg (27-33); Mean Corpuscular Volume 84.6 fl (85-98); Mean Platelet Volume 8.1 fL (7.4-10.4); Monocytes # 0.9 10^3/uL (0.2-0.9); Monocytes % 8.5 %; Neutrophils # 7.95 10^3/uL (1.8-7.7); Neutrophils % 77.2 %; Nucleated Red Blood Cells % 0.2 %; Platelet Count 286 10^3/cmm (157-399); Red Blood Count 4.41 10^6/uL (3.85-5.65); Red Cell Distribution Width 18.7 % (12.1-15.1)
[2023-04-03 22:28] LABS: Troponin(5th) Baseline 10 ng/L (0-10)
[2023-04-03 22:30] LABS: ABG PH Result 7.33 (7.35-7.45); Alveolar-Arterial Oxygen Gradi 72.4 mmHg (5-10); Arterial Blood Gas Hematocrit 32.7 % (37-47); Base Excess ABG 15.4 mmol/L (-2.0-2.0); Blood Gas Allen Test Pos; Blood Gas Sample Site Brachial, right; Blood Gas Sample Type Arterial; Carboxyhemoglobin 2.7 %THgb (0.4-20.1); HCO3 ABG 44.4 mmol/L (22-26); HGB O2 Sat 87.9 % (95-100); Ionized Calcium Level - ABG 1.4 mmol/L (1.1-1.4); Oxygen Device NRB; Oxygen Saturation ABG 91.3; PO2 ABG 63.2 mmHg (80.0-100.0); PO2 FiO2 Ratio Arterial Blood 0; Potassium Level - ABG 3.4 mmol/L (3.5-5.0); Total Hemoglobin 10.7 g/dL (12-16)
[2023-04-03 22:43] LABS: Alanine Aminotransferase 7 U/L (0-33); Albumin Level 3.3 g/dL (3.5-5.2); Alkaline Phosphatase 123 U/L (35-105); Anion Gap 9.5 (5-19); Aspartate Amino Transferase 6 U/L (0-32); Blood Urea Nitrogen 9 mg/dL (6-20); Calcium 10.6 mg/dL (8.5-10.5); Chloride 91 mmol/L (98-107); Globulin 3.2 g/dL (1.3-4.6); Glomerular Filtration Rate 106.7 mL/min (90-130); Glucose 133 mg/dL (65-115); Magnesium 1.7 mg/dL (1.7-2.3); Osmolality Calculated 287 mOsm/kg (285-295); Phosphorus 1.5 mg/dL (2.5-4.5); Potassium 3.5 mmol/L (3.5-5.1); Sodium 138 mmol/L (136-145); Total Bilirubin 0.6 mg/dL (0.15-1.2); Total Protein 6.5 g/dL (6.6-8.7)
[2023-04-03 22:49] LABS: Carbon Dioxide 41 mmol/L (22-29)
[2023-04-03] MEDS: FUROsemide 10 mg/mL SDV 4mL 40 MG IVP (23:19)
[2023-04-03] MEDS: morphine 4 mg/mL SDV 1 mL 1 MG IVP (23:19)
[2023-04-03 23:30] LABS: NT Pro B Type Natriuretic Pept 375 pg/mL (0-125)
[2023-04-04] VITALS (108 sets, daily range): BP systolic 107–158; BP diastolic 48–88; PULSE 75–101; RESP 13–38; TEMP 36.9–37.2; O2SAT 82–98
--- NOTE | 2023-04-04 00:17 | USCV_ITS ---
JamieTammie mancini Age: 47 Gender: F : 1975 Exam Date: 04/04/2023 06:36 Ordering Phys: Mehrdad Jimenez MD Technologist: MAYRA [place] [facility] [place]: [place] HISTORY: Stasis PROCEDURES: Venous duplex imaging was performed in bilateral lower extremities. The following venous structures were evaluated: common femoral vein, profunda vein, proximal portion of the greater saphenous vein, superficial femoral vein, and the popliteal vein. In addition, the posterior tibial and peroneal trunk were evaluated. Serial compression, augmentation maneuvers, and spectral Doppler flow evaluation were performed. FINDINGS: Normal 2-D Doppler and augmentation and compressibility throughout the lower extremity venous structures. Additional imaging through the proximal calf veins also reveals no thrombus. Limited evaluation of the greater saphenous vein is patent with no thrombus. CONCLUSIONS No DVT bilateral lower extremities. Dr. Jasmine Holcomb DO (Electronically Signed) Final Date: 04 April 2023 07:20 S
--- NOTE | 2023-04-04 00:18 | P.HP_ITS ---
Providers/Chief Complaint 2 Primary Care Provider: Jus Espinal MD Chief Complaint: sob, slurred speech History of Present Illness Tammie Ayala is a 47 year old female with a past medical history of morbid obesity, chronic respiratory failure, hypertension, diastolic CHF, who presents to [facility] due to increased shortness of breath, bilateral extremity edema, increased confusion. Currently patient is alert oriented x 3, following all commands, her daughter is at bedside, she tells me that recently she has been feeling more foggy and more confused, no chest pain, no palpitations, her family is was reporting to her that she had slurring of words, currently no slurring of words, no facial droop, no focal weakness, no paresthesias she has been developing increased shortness of breath, increasing bilateral lower extremity edema she is taking Lasix as prescribed. She tells me that she is gained roughly 20 to 30 pounds in the last few weeks, she developed fluid-filled blisters that have ruptured behind both ankles, that are bothering her Review of Systems 2 Const: Denies: fever(s) Card: Denies: chest pain Resp: Reports: dyspnea GI: Denies: abdominal pain Medications/Allergies Home Medications Medication Instructions Recorded Confirmed Last Taken Type amlodipine 10 mg tablet ea PO 07/12/22 Unknown History furosemide 40 mg tablet ea PO 07/12/22 Unknown History magnesium L-lactate 84 mg ea PO 07/12/22 Unknown History tablet,extended release potassium chloride 20 mEq tab PO 07/12/22 Unknown History tablet,extended release spironolactone 25 mg tablet ea PO 07/12/22 Unknown History carvedilol 12.5 mg tablet 12.5 mg PO BID #180 tabs 10/17/22 Unknown Rx Allergies Allergy/AdvReac Type Severity Reaction Status Date / Time acetaminophen [From Percocet] Allergy ALGY-Anaphy Verified 04/03/23 21:36 laxis oxycodone [From Percocet] Allergy ALGY-Anaphy Verified 04/03/23 21:36 laxis PFSH Acute 2 PFSH: Medical History Morbid obesity Surgical History History of History of cholecystectomy Family History Father CAD (coronary artery disease) Mother CAD (coronary artery disease) Social History Smoking and tobacco/nicotine status: never used tobacco/nicotine Alcohol intake: never Substance/Drug Use: never Vitals/I&O/Wt Last Vital Signs Pulse 93 04/03/23 23:53 Resp 22 H 04/03/23 23:19 BP 155/71 04/03/23 22:36 Pulse Ox 96 04/03/23 23:53 O2 Del Method Non-Rebreather 04/03/23 22:36 O2 Flow Rate 10 04/03/23 22:21 FiO2 65 04/03/23 23:53 Weight last 48 hrs Weight 176.901 kg Physical Exam 2 Const: COMMON NORMALS: no acute distress and patient oriented x3 HENMT: COMMON NORMALS: normocephalic HEAD & SCALP: normocephalic Eye: COMMON NORMALS: Equal, round and reactive pupils present and EOMs intact bilaterally Neck/C-Spine: COMMON NORMALS: no JVD Lymph: LYMPHATIC: no lymphadenopathy noted Resp: COMMON NORMALS: normal respiratory effort, No retractions, No use of accessory muscles and clear to auscultation bilaterally AUSCULTATION: mic steinberg Cardio: COMMON NORMALS: no JVD, regular rate, regular rhythm, S1 normal heart sound present and S2 normal heart sound present RATE: regular rate RHYTHM: regular rhythm HEART SOUNDS: S1 normal heart sound present and S2 normal heart sound present GI: COMMON NORMALS: Normal to inspection, nondistended, normoactive bowel sounds present, Soft to palpation and non-tender Extremity: NARRATIVE EXTREMITY EXAM: 4+ pitting edema bilateral extremity, di ffuse anasarca Neuro: COMMON NORMALS: patient oriented x3, CN's II-XII intact bilaterally and moves all extremities Psych: COMMON NORMALS: mental status grossly normal Skin: OTHER: Bilateral heels, open blisters, with surrounding cellulitis, erythema Data 04/03/23 22:00 04/03/23 22:00 A&P Assessment and plan (1) Acute on chronic respiratory failure with hypoxia and hypercapnia: (2) Morbid obesity due to excess calories: (3) CHF exacerbation: (4) Fluid overload: (5) Anasarca: (6) Cellulitis: Plan Acute hypoxic hypercarbic respiratory failure -Currently at 65% FiO2 on BiPAP, pCO2 84 Plan -Admit to ICU -Monitor respiratory status closely ? Fluid restrictions at 1000 cc ? Place Sharp catheter ? Monitor mag, creatinine, potassium ? Received 40 mg IV push Lasix with 5 mg p.o. metolazone with 40 mg potassium -Start Lasix 40 mg IV push every 8 hours -During her last hospitalization she was diuresed over 17 L -Venous ultrasound bilateral extremities -Full code -Lovenox for DVT prophylaxis -Likely on discharge due to chronic respiratory failure secondary to diastolic CHF patient would clinically benefit from BiPAP machine, when she is more stable can order overnight pulse ox Cellulitis, with open blisters bilateral lower extremities -Wound care -Doxycycline, Augmentin -ESR, CRP, Pro-Devyn Morbid obesity Hypertension Attestations 2 Medical Necessity Statement*: Patient requires hospitalization, inpatient, greater than 2 midnights, for acute hypoxic hypercarbic respiratory failure requiring BiPAP therapy, fluid overload diastolic CHF exacerbation requiring diuresis, cellulitis Diagnoses Acute on chronic respiratory failure with hypoxia and hypercapnia J96.21; J96.22 Morbid obesity due to excess calories E66.01 CHF exacerbation I50.9 Fluid overload E87.70 Anasarca R60.1 Cellulitis L03.90
[2023-04-04 00:27] LABS: HCG, Serum Qual Negative (Negative)
[2023-04-04 00:33] LABS: Troponin 5 2HR 9.86 ng/L (0-10)
[2023-04-04 00:34] LABS: Troponin 5 2HR Delta -0.14 ABS# (0-10)
[2023-04-04 00:39] LABS: C Reactive Protein 65.5 mg/L (0.0-4.9)
[2023-04-04 00:47] LABS: Erythrocyte Sedimentation Rate 101 mm/hr (0-15); Procalcitonin 0.17 ng/mL (0-0.5)
--- NOTE | 2023-04-04 02:10 | PC.NURSE ---
Patient c/o leg pain at 10/11. Called Dr Jimenez re: pain medication. Verbal order for 0.5mg dilaudid q 4ivp prn pain. rbvo and placed.
[2023-04-04] MEDS: HYDROmorphone 1 mg/mL INJ 1 mL 0.5 MG IVP ×2 (02:40→08:59)
--- NOTE | 2023-04-04 03:50 | ECG_ITS ---
[facility] Test Date: 2023-04-04 Pat Name: Tammie Ayala Department: Room: [facility] Gender: Female Financial Retirement Plan Specialist: : 1975 Requested By: Kaiser Gerard Order Number: [id number] Mac MD: Harish Garcia M.D. Measurements Intervals Graham Rate: 106 P: 46 NC: 172 QRS: 30 QRSD: 101 T: -60 QT: 333 QTc: 444 Interpretive Statements SINUS TACHYCARDIA NONSPECIFIC ST & T-WAVE ABNORMALITY Compared to ECG 04/03/2023 22:12:14 Sinus rhythm no longer present T-wave abnormality still present Electronically Signed On 04-07-2023 10:59:16 [employer] by Harish Garcia M.D. [email or web address] of montgomeryUniversal World Entertainment [id number]
[2023-04-04 04:59] LABS: Estmated Average Glucose 160; Hemoglobin A1C 7.2 % (4.0-6.0)
[2023-04-04 05:01] LABS: Troponin 5 6HR 12.56 ng/L (0-10); Troponin 5 6HR Delta 2.56 ng/L (0-12)
[2023-04-04 05:10] LABS: Anion Gap 7.2 (5-19); Blood Urea Nitrogen 8 mg/dL (6-20); Calcium 10.2 mg/dL (8.5-10.5); Chloride 90 mmol/L (98-107); Glomerular Filtration Rate 106.7 mL/min (90-130); Glucose 157 mg/dL (65-115); Osmolality Calculated 288 mOsm/kg (285-295); Potassium 3.2 mmol/L (3.5-5.1); Sodium 138 mmol/L (136-145); Thyroid Stimulating Hormone 1.33 uIU/mL (0.27-4.20)
[2023-04-04 05:13] LABS: Carbon Dioxide 44 mmol/L (22-29)
[2023-04-04] MEDS: metOLazone 5 MG Tablet PO ×2 (05:21→17:49)
[2023-04-04] MEDS: potassium chloride ER 20 mEq Tablet 40 MEQ PO (05:21)
[2023-04-04] MEDS: pantoprazole 40 mg SDV IVP (05:22)
--- NOTE | 2023-04-04 08:07 | CT_ITS ---
WS: [id number] CT CHEST ANGIOGRAPHY WITH REFORMATS HISTORY: Pneumonia. TECHNIQUE: Contiguous axial images are obtained through the chest during arterial injection of intrav enous contrast. Images are reconstructed to evaluate the pulmonary arteries. MIP imaging also reviewe d. All CT scans at [facility] use at least one of these dose optimization techniques: automat ed exposure control; mA and/or kV adjustment per patient size (includes targeted exams where dose is matched to clinical indication); or iterative reconstruction. CONTRAST: Omnipaque 350; 100 mL IV. DLP: 551.03 mGy.cm COMPARISON: None available. Limited opacification of the pulmonary arteries due to body habitus. There is significant streak jose daniel fact through the chest by body habitus and overlying soft tissue. No central pulmonary emboli. Beyond the main pulmonary arteries the opacification is significantly compromised. Normal size aorta. Mild enlargement of the pulmonary artery. There are extensive bilateral opacifications throughout both lungs but greatest at the lung bases. Co mbination of atelectasis and pneumonia with volume loss. Hazy attenuation from fluid overload. No sig nificant pleural effusion. Mediastinal and hilar lymphadenopathy is present. Largest RIGHT hilar lymph nodes 2.1 cm. AP window l ymph node 2.3 cm. Inferior RIGHT paratracheal lymph node 1.9 cm. There are additional smaller lymph n odes. Enlarged liver. Spleen measures at least 12.5 cm in length. Microscopic fat-containing RIGHT adrenal mass measures 2.7 x 2.6 cm consistent with adrenal myolipoma. Normal LEFT adrenal gland. Prior cholec ystectomy. IMPRESSION: 1. Extremely limited and suboptimal evaluation of the pulmonary arteries due to body habitus and sig nificant soft tissue artifact. No central pulmonary embolism. 2. Extensive bilateral areas of opacification greatest at the lung bases. Combination of pneumonia a nd atelectasis. Predominantly atelectasis. 3. Mediastinal and hilar lymphadenopathy. Lymphadenopathy will need to be further evaluated. This is probably reactive. Recommend follow-up chest CT after patient's acute presentation resolves. Chest C T in 3 to 4 months recommended with IV contrast. 4. Mild pulmonary artery enlargement. 5. Hepatomegaly. 6. RIGHT adrenal myelolipoma.
[2023-04-04 08:41] LABS: ABG PH Result 7.37 (7.35-7.45); Base Excess ABG 19.3 mmol/L (-2.0-2.0); Blood Gas Allen Test Pos; Blood Gas Sample Type Arterial; HCO3 ABG 48.1 mmol/L (22-26); PO2 ABG 78.6 mmHg (80.0-100.0)
[2023-04-04 08:43] LABS: ABG PCO2 83.8 mmHg (35-45); Blood Gas Operator Identificat MONRO; Blood Gas Sample Site Radial, right; Oxygen Device BIPAP; PO2 FiO2 Ratio Arterial Blood 0
[2023-04-04] MEDS: amoxicillin-clav 875-125 mg Tablet 1 TAB PO ×2 (08:58→17:49)
[2023-04-04] MEDS: carvedilol 12.5 mg Tablet PO ×2 (08:59→17:49)
[2023-04-04] MEDS: doxycycline 100 mg Tablet PO ×2 (08:59→17:49)
[2023-04-04] MEDS: magnesium lactate 84 mg Tablet PO (08:59)
[2023-04-04] MEDS: enoxaparin 40 mg/0.4 mL Syringe SUBCUT (08:59)
[2023-04-04] MEDS: FUROsemide 10 mg/mL SDV 4mL 40 MG IVP ×2 (09:00→23:59)
[2023-04-04] MEDS: iohexol 350 mg/mL 500 mL Btl (per mL) IV (10:18)
--- NOTE | 2023-04-04 10:52 | P.EN_ITS ---
Event Note Event Note: Patient is on BiPAP Able to answer my questions Patient stating that she does not use any treatment for sleep apnea or uses BiPAP at night She uses 2 L of oxygen at home She does not see any immigration specialist Awake and alert Currently on BiPAP Settings 22/02 Venous stasis dermatitis Lymphedema Morbid obesity Plan Repeat ABG showed improvement in pH she is compensating however not a significant prominent pCO2 I will keep her on AVAPS until 2:00 and then give her a break to let her eat I do believe she will need BiPAP at the time of discharge Will request overnight pulse ox She is full code Getting treated with doxycycline and Augmentin for possible pneumonia She does have anasarca significant swelling Her lower extremity wounds do not look infected Will add metolazone to Lasix Requested CTA chest as well Discontinue hydromorphone IV
[2023-04-04] MEDS: nystatin powder 15 gm Btl 1 APPLIC TOPICAL ×2 (11:20→18:16)
[2023-04-04 11:21] LABS: ABG PH Result 7.36 (7.35-7.45); Arterial Blood Gas Hematocrit 32.6 % (37-47); Base Excess ABG 21.6 mmol/L (-2.0-2.0); Blood Gas Allen Test Pos; Blood Gas Sample Type Arterial; HCO3 ABG 51.1 mmol/L (22-26); HGB O2 Sat 87.1 % (95-100); Ionized Calcium Level - ABG 1.3 mmol/L (1.1-1.4); Oxygen Saturation ABG 89.8; PO2 ABG 58.5 mmHg (80.0-100.0); Total Hemoglobin 10.6 g/dL (12-16)
[2023-04-04 11:23] LABS: Alveolar-Arterial Oxygen Gradi 53.1 mmHg (5-10); Blood Gas Operator Identificat MONRO; Blood Gas Sample Site Radial, left; Blood Gas Tidal Volume 0.45; Oxygen Device BIPAP; PO2 FiO2 Ratio Arterial Blood 0
[2023-04-04 11:24] LABS: ABG PCO2 90.5 mmHg (35-45)
--- NOTE | 2023-04-04 11:56 | PC.NURSE ---
Provider notified that patient was given lasix 40mg IVP at 0900 today and had another dose due in the MAR at 1100. Provider said to hold the 1100 dose.
[2023-04-04 12:13] LABS: Glucose Point of Care 157 mg/dL (70-110)
[2023-04-04] MEDS: TRAMadol 50 mg Tablet PO ×2 (13:10→18:15)
[2023-04-04] MEDS: insulin lispro 100 unit/1 mL SUBCUT (17:49)
[2023-04-04 17:52] LABS: Glucose Point of Care 146 mg/dL (70-110)
[2023-04-04 20:51] LABS: Glucose Point of Care 138 mg/dL (70-110)
[2023-04-04] MEDS: budesonide 0.5 mg/2 mL Neb INHALATION (20:51)
[2023-04-04 21:12] LABS: Add Urine Microscopic? NO; Charge for UA Resulting for Rev
[2023-04-04 21:16] LABS: Bilirubin Urine Neg (Negative); Blood Urine Neg (Negative); Glucose Urine UA Norm (Normal); Ketones Urine Negative (Negative); Leukocyte Esterase Urine Negative (Negative); Nitrate Urine Negative (Negative); Protein Urine Neg (Negative); Specific Gravity, Urine 1.005 (1.005-1.030); Urine Appearance Clear (CLEAR); Urine Color Yellow (Yellow); Urobilinogen Urine Norm (Negative); pH Urine 7 (5-7)
[2023-04-04] MEDS: lidocaine 1% 5 ML in potassium chloride premix 100 ML 25 ML IV (21:34)
--- NOTE | 2023-04-04 21:50 | PC.NURSE ---
Patient having complaints of reflux like pain in chest, states it is not radiating anywhere. EKG obtained which showed SR, vitals are within normal limits. Messaged for further orders.
[2023-04-05] VITALS (29 sets, daily range): BP systolic 93–155; BP diastolic 56–82; PULSE 70–97; RESP 17–31; TEMP 36.6–37.8; O2SAT 85–97
[2023-04-05 01:29] LABS: Troponin T (5th) Once 15 ng/L (0-10)
--- NOTE | 2023-04-05 01:48 | PC.NURSE ---
ordered Troponin to be checked on patient due to earlier complaints of chest discomfort. Troponin was 15 and patient had no further complaints of pain. Made aware of the results, no new orders at this time.
[2023-04-05] MEDS: pantoprazole 40 mg SDV IVP (03:07)
[2023-04-05 05:22] LABS: Basophils % 0.3 %; Eosinophils # 0.1 10^3/uL (0.0-0.8); Eosinophils % 1.4 %; Hematocrit 36.1 % (36-47); Lymphocytes % 10.1 %; Mean Corpuscular HGB Conc 27.7 g/dL (30-55); Mean Corpuscular Volume 83.2 fl (85-98); Mean Platelet Volume 8.6 fL (7.4-10.4); Monocytes % 9.7 %; Neutrophils # 8.06 10^3/uL (1.8-7.7); Neutrophils % 78.1 %; Nucleated Red Blood Cells % 0 %; Platelet Count 265 10^3/cmm (157-399); Red Blood Count 4.34 10^6/uL (3.85-5.65); Red Cell Distribution Width 18.9 % (12.1-15.1); White Blood Count 10.31 10^3/uL (3.29-11.43)
[2023-04-05 05:42] LABS: Blood Urea Nitrogen 7 mg/dL (6-20); Calcium 10.9 mg/dL (8.5-10.5); Chloride 78 mmol/L (98-107); Glomerular Filtration Rate 106.7 mL/min (90-130); Glucose 125 mg/dL (65-115); Magnesium 1.6 mg/dL (1.7-2.3); Osmolality Calculated 279 mOsm/kg (285-295); Phosphorus 2.9 mg/dL (2.5-4.5); Sodium 135 mmol/L (136-145)
[2023-04-05 05:42] LABS: ABG PH Result 7.45 (7.35-7.45); Arterial Blood Gas Hematocrit 31.5 % (37-47); Base Excess ABG 30.7 mmol/L (-2.0-2.0); Blood Gas Allen Test Pos; Blood Gas Sample Site Radial, right; Blood Gas Sample Type Arterial; Blood Gas Tidal Volume 0.45; HCO3 ABG 59.6 mmol/L (22-26); Oxygen Device BIPAP; PO2 FiO2 Ratio Arterial Blood 0
[2023-04-05 05:44] LABS: ABG PCO2 86.4 mmHg (35-45)
[2023-04-05] MEDS: TRAMadol 50 mg Tablet PO ×2 (05:54→19:50)
[2023-04-05 05:58] LABS: Anion Gap 8.9 (5-19); Carbon Dioxide > 51 mmol/L (22-29); Potassium 2.9 mmol/L (3.5-5.1)
[2023-04-05 06:00] LABS: NT Pro B Type Natriuretic Pept 214 pg/mL (0-125)
--- NOTE | 2023-04-05 06:02 | PC.NURSE ---
Spoke with , made him aware of patient with potassium of 2.9 and CO2 >51. ordered one time dose of 40MEQ Kryder.
[2023-04-05] MEDS: lidocaine 1% 5 ML in potassium chloride premix 100 ML 26.25 ML IV (06:27)
[2023-04-05] MEDS: budesonide 0.5 mg/2 mL Neb INHALATION ×2 (07:33→20:36)
[2023-04-05 08:00] LABS: Glucose Point of Care 133 mg/dL (70-110)
[2023-04-05] MEDS: magnesium lactate 84 mg Tablet PO (08:25)
[2023-04-05] MEDS: amoxicillin-clav 875-125 mg Tablet 1 TAB PO ×2 (08:25→17:40)
[2023-04-05] MEDS: carvedilol 12.5 mg Tablet PO ×2 (08:26→17:40)
[2023-04-05] MEDS: doxycycline 100 mg Tablet PO ×2 (08:26→17:40)
[2023-04-05] MEDS: metOLazone 5 MG Tablet PO (08:26)
[2023-04-05] MEDS: enoxaparin 40 mg/0.4 mL Syringe SUBCUT (08:26)
[2023-04-05] MEDS: potassium chloride ER 20 mEq Tablet 40 MEQ PO (08:26)
[2023-04-05] MEDS: nystatin powder 15 gm Btl 1 APPLIC TOPICAL (09:46)
[2023-04-05 11:48] LABS: Glucose Point of Care 152 mg/dL (70-110)
[2023-04-05] MEDS: insulin lispro 100 unit/1 mL SUBCUT ×2 (13:02→17:40)
--- NOTE | 2023-04-05 14:09 | P.PN_ITS ---
Subjective 2 Subjective: This morning patient is awake and alert Eating breakfast Currently on heated high flow 50% 50 L Saturating 89% Significant alkalosis, stopped Lasix today Patient will stay in ICU She will need BiPAP at the time of discharge No signs of PE Vitals/I&O/Wt Last Vital Signs Temp 98.0 F 04/05/23 09:00 Pulse 77 04/05/23 14:03 Resp 19 H 04/05/23 13:00 BP 136/58 04/05/23 13:00 Pulse Ox 89 L 04/05/23 14:03 O2 Del Method High Flow Nasal Cannula 04/05/23 13:00 O2 Flow Rate 50 04/04/23 20:53 FiO2 65 04/05/23 14:03 04/04/23 04/05/23 04/05/23 22:59 06:59 14:59 Intake Total 440 / 480 105 / 585 425 / 425 Output Total 1175 / 5675 2900 / 8575 1500 / 1500 Balance -735 / -5195 -2795 / -7990 -1075 / -1075 Weight last 48 hrs Weight 169.87 kg Weight 181.482 kg Weight 181.482 kg Weight 176.901 kg Physical Exam 2 Narrative: Patient has anasarca Morbid obesity Currently on 50% 50 L high flow Awake and alert eating breakfast Pleasant cooperative No active chest pain or distress Lower extremity nonpitting edema Venous dermatitis with cellulitis Urinary Catheter Management: Sharp: Cath Placed During This Visit: yes Reason for Continuing Indwelling Catheter: Acute Urinary Retention or Obstruction Urinary Catheter Date of Insertion: 04/04/23 Urinary Catheter Time of Insertion: 23:00 Data 04/05/23 04:38 04/05/23 04:38 A&P Assessment and plan (1) Benign essential HTN: (2) Acute on chronic diastolic (congestive) heart failure: (3) Morbid obesity due to excess calories: (4) Fluid overload: (5) Hypoxia: (6) Acute respiratory failure with hypoxia and hypercapnia: (7) Anasarca: Plan Compensated hypoxic hypercapnic respite failure Patient definitely needs BiPAP otherwise she will be at risk of intubation, respite failure and cardiac arrest Overnight pulse ox study evaluation/report is pending Currently on DVT prophylaxis No signs of DVT or PE Hold Lasix for today along metolazone Hold potassium supplement Echo report is pending Patient is full code She seems to have lymphedema with underlying venous stasis dermatitis Attestations 2 Medical Necessity Statement*: Medical optimization and ICU Diagnoses Benign essential HTN I10 Acute on chronic diastolic (congestive) heart failure I50.33 Morbid obesity due to excess calories E66.01 Fluid overload E87.70 Hypoxia R09.02 Acute respiratory failure with hypoxia and hypercapnia J96.01; J96.02 Anasarca R60.1
[2023-04-05] MEDS: magnesium oxide 400 mg tablet PO ×2 (15:33→17:40)
[2023-04-05 16:58] LABS: Glucose Point of Care 162 mg/dL (70-110)
[2023-04-06] VITALS (29 sets, daily range): BP systolic 98–164; BP diastolic 61–111; PULSE 70–94; RESP 14–29; TEMP 36.5–37; O2SAT 89–95
[2023-04-06] MEDS: pantoprazole 40 mg SDV IVP (03:38)
[2023-04-06 04:24] LABS: Basophils % 0.4 %; Eosinophils # 0.1 10^3/uL (0.0-0.8); Eosinophils % 1.4 %; Hematocrit 35.9 % (36-47); Lymphocytes # 1.1 10^3/uL (0.8-4.8); Lymphocytes % 10.8 %; Mean Corpuscular HGB Conc 28.1 g/dL (30-55); Mean Corpuscular Hemoglobin 22.7 pg (27-33); Mean Corpuscular Volume 80.9 fl (85-98); Mean Platelet Volume 8.7 fL (7.4-10.4); Monocytes % 9.3 %; Neutrophils # 7.98 10^3/uL (1.8-7.7); Neutrophils % 77.7 %; Nucleated Red Blood Cells % 0 %; Platelet Count 254 10^3/cmm (157-399); Red Blood Count 4.44 10^6/uL (3.85-5.65); Red Cell Distribution Width 18.9 % (12.1-15.1); White Blood Count 10.27 10^3/uL (3.29-11.43)
[2023-04-06 04:46] LABS: Blood Urea Nitrogen 9 mg/dL (6-20); Calcium 10.8 mg/dL (8.5-10.5); Chloride 80 mmol/L (98-107); Glomerular Filtration Rate 106.7 mL/min (90-130); Glucose 155 mg/dL (65-115); Osmolality Calculated 274 mOsm/kg (285-295); Sodium 131 mmol/L (136-145)
[2023-04-06 05:34] LABS: Carbon Dioxide 47 mmol/L (22-29)
[2023-04-06 08:09] LABS: Glucose Point of Care 135 mg/dL (70-110)
[2023-04-06] MEDS: budesonide 0.5 mg/2 mL Neb INHALATION ×2 (08:16→19:49)
[2023-04-06] MEDS: magnesium oxide 400 mg tablet PO ×2 (09:04→18:23)
[2023-04-06] MEDS: potassium chloride ER 20 mEq Tablet PO (09:04)
[2023-04-06] MEDS: amoxicillin-clav 875-125 mg Tablet 1 TAB PO ×2 (09:04→18:23)
[2023-04-06] MEDS: magnesium lactate 84 mg Tablet PO (09:05)
[2023-04-06] MEDS: doxycycline 100 mg Tablet PO ×2 (09:05→18:23)
[2023-04-06] MEDS: nystatin powder 15 gm Btl 1 APPLIC TOPICAL (09:05)
[2023-04-06] MEDS: enoxaparin 40 mg/0.4 mL Syringe SUBCUT (09:05)
[2023-04-06] MEDS: carvedilol 12.5 mg Tablet PO ×2 (09:05→18:23)
[2023-04-06 11:46] LABS: Glucose Point of Care 199 mg/dL (70-110)
[2023-04-06] MEDS: insulin lispro 100 unit/1 mL SUBCUT ×2 (11:54→18:23)
[2023-04-06] MEDS: TRAMadol 50 mg Tablet PO ×2 (11:54→21:18)
--- NOTE | 2023-04-06 12:36 | P.PN_ITS ---
Subjective 2 Subjective: Patient is stating that she still feeling the same as yesterday Currently on 75% oxygen with 50 L Still hypoxic she got out of bed and sat in a recliner for a few hours yesterday Bicarb 47 We will arrange BiPAP before her discharge from the hospital on Saturday Vitals/I&O/Wt Last Vital Signs Temp 98.6 F 04/06/23 04:00 Pulse 76 04/06/23 12:05 Resp 22 H 04/06/23 12:05 BP 164/79 04/06/23 09:00 Pulse Ox 90 04/06/23 12:05 O2 Del Method High Flow Nasal Cannula 04/06/23 09:00 O2 Flow Rate 50 04/06/23 12:05 FiO2 75 04/06/23 12:05 04/05/23 04/06/23 04/06/23 22:59 06:59 14:59 Intake Total 250 / 675 140 / 140 Output Total 800 / 2300 1500 / 3800 800 / 800 Balance -550 / -1625 -1500 / -3125 -660 / -660 Weight last 48 hrs Weight 166.468 kg Weight 169.87 kg Physical Exam 2 Narrative: Morbidly obese Signs of fluid load improving Sharp catheter in place GCS 15 S1, S2 Currently on heated high flow Nonfocal neuroexam Lower extremity venous stasis dermatitis Urinary Catheter Management: Sharp: Cath Placed During This Visit: yes Reason for Continuing Indwelling Catheter: Accurate Measurement of Urinary Output in Critically Ill Patients Urinary Catheter Date of Insertion: 04/04/23 Urinary Catheter Time of Insertion: 23:00 Data 04/06/23 03:31 04/06/23 03:31 A&P Assessment and plan (1) Benign essential HTN: (2) Acute on chronic diastolic (congestive) heart failure: (3) Morbid obesity due to excess calories: (4) Fluid overload: (5) Hypoxia: (6) Acute respiratory failure with hypoxia and hypercapnia: (7) Anasarca: Plan Acute hypoxic hypercarbic respiratory failure Will request respiratory panel Afebrile Alkalosis, and compensation to her hypercarbia I will resume her Lasix today without metolazone Replenish potassium Add magnesium Continue p.o. Augmentin Patient will need BiPAP at the time of discharge She is full code I will keep her in ICU currently on heated high flow 50 L, 75% oxygen, and has worsened however clinically patient is not endorsing any worsening no active chest pain or shortness of breath CTA chest and venous Doppler negative for thromboembolic phenomenon Echo report is still pending Attestations 2 Medical Necessity Statement*: Continue medical management Diagnoses Benign essential HTN I10 Acute on chronic diastolic (congestive) heart failure I50.33 Morbid obesity due to excess calories E66.01 Fluid overload E87.70 Hypoxia R09.02 Acute respiratory failure with hypoxia and hypercapnia J96.01; J96.02 Anasarca R60.1
[2023-04-06 14:33] LABS: Adenovirus Not Detected (NOT DETECT); Chlamydia Pneumoniae Not Detected (NOT DETECT); Coronavirus 229E,HKU1,NL63,OC4 Not Detected (NOT DETECT); Human Metapneumovirus Not Detected (NOT DETECT); Human Rhinovirus/Enterovirus Not Detected (NOT DETECT); Influenza A Not Detected (NOT DETECT); Influenza A H1 Not Detected (NOT DETECT); Influenza A H1-2009 Not Detected (NOT DETECT); Influenza A H3 Not Detected (NOT DETECT); Influenza B Not Detected (NOT DETECT); Mycoplasma Pneumoniae Not Detected (NOT DETECT); Parainfluenza Virus Type 1 Not Detected (NOT DETECT); Parainfluenza Virus Type 2 Not Detected (NOT DETECT); Parainfluenza Virus Type 3 Not Detected (NOT DETECT); Parainfluenza Virus Type 4 Not Detected (NOT DETECT); Respiratory Syncytial Virus A Not Detected (NOT DETECT); Respiratory Syncytial Virus B Not Detected (NOT DETECT); SARS-COV-2 Not Detected (NOT DETECT)
[2023-04-06 17:49] LABS: Glucose Point of Care 168 mg/dL (70-110)
[2023-04-06 21:09] LABS: Glucose Point of Care 168 mg/dL (70-110)
[2023-04-06] MEDS: FUROsemide 10 mg/mL SDV 4mL 40 MG IVP (23:09)
[2023-04-07] VITALS (32 sets, daily range): BP systolic 116–175; BP diastolic 53–88; PULSE 69–94; RESP 15–26; TEMP 36.8–37; O2SAT 88–98
[2023-04-07] MEDS: pantoprazole 40 mg SDV IVP (03:44)
[2023-04-07 04:59] LABS: Basophils % 0.4 %; Eosinophils # 0.2 10^3/uL (0.0-0.8); Eosinophils % 1.5 %; Hematocrit 39.7 % (36-47); Lymphocytes # 1.2 10^3/uL (0.8-4.8); Lymphocytes % 11.1 %; Mean Corpuscular HGB Conc 28.7 g/dL (30-55); Mean Corpuscular Hemoglobin 22.8 pg (27-33); Mean Corpuscular Volume 79.6 fl (85-98); Mean Platelet Volume 8.8 fL (7.4-10.4); Monocytes % 8.7 %; Neutrophils # 8.64 10^3/uL (1.8-7.7); Neutrophils % 77.8 %; Nucleated Red Blood Cells % 0 %; Platelet Count 263 10^3/cmm (157-399); Red Blood Count 4.99 10^6/uL (3.85-5.65); Red Cell Distribution Width 18.8 % (12.1-15.1)
[2023-04-07 05:20] LABS: Anion Gap 12.3 (5-19); Blood Urea Nitrogen 12 mg/dL (6-20); Calcium 11.5 mg/dL (8.5-10.5); Chloride 78 mmol/L (98-107); Glomerular Filtration Rate 106.7 mL/min (90-130); Glucose 151 mg/dL (65-115); Osmolality Calculated 273 mOsm/kg (285-295); Potassium 3.3 mmol/L (3.5-5.1); Sodium 130 mmol/L (136-145)
[2023-04-07 05:23] LABS: Carbon Dioxide 43 mmol/L (22-29)
[2023-04-07 06:34] LABS: Glucose Point of Care 171 mg/dL (70-110)
[2023-04-07 07:56] LABS: Glucose Point of Care 163 mg/dL (70-110)
[2023-04-07] MEDS: budesonide 0.5 mg/2 mL Neb INHALATION ×2 (08:09→20:02)
[2023-04-07] MEDS: magnesium oxide 400 mg tablet PO ×2 (09:01→17:50)
[2023-04-07] MEDS: magnesium lactate 84 mg Tablet PO (09:01)
[2023-04-07] MEDS: insulin lispro 100 unit/1 mL SUBCUT ×3 (09:03→17:50)
[2023-04-07] MEDS: amoxicillin-clav 875-125 mg Tablet 1 TAB PO (09:03)
[2023-04-07] MEDS: carvedilol 12.5 mg Tablet PO ×2 (09:03→17:50)
[2023-04-07] MEDS: doxycycline 100 mg Tablet PO ×2 (09:03→17:50)
[2023-04-07] MEDS: nystatin powder 15 gm Btl 1 APPLIC TOPICAL ×2 (09:04→17:51)
[2023-04-07] MEDS: enoxaparin 40 mg/0.4 mL Syringe SUBCUT (09:04)
[2023-04-07] MEDS: TRAMadol 50 mg Tablet PO ×2 (09:16→14:34)
[2023-04-07] MEDS: potassium chloride ER 20 mEq Tablet PO (09:18)
[2023-04-07] MEDS: potassium chloride ER 20 mEq Tablet 40 MEQ PO (09:18)
--- NOTE | 2023-04-07 11:29 | CTR_ITS ---
PROCEDURE INFORMATION: Exam: CT Chest Without Contrast; Diagnostic Exam date and time: 04/07/2023 6:05 PM Age: 47 years old Clinical indication: Hyperventilation; Additional info: Hypoxia TECHNIQUE: Imaging protocol: Diagnostic computed tomography of the chest without contrast. Radiation optimization: All CT scans at this facility use at least one of these dose optimization techniques: automated exposure control; mA and/or kV adjustment per patient size (includes targeted exams where dose is matched to clinical indication); or iterative reconstruction. COMPARISON: CT angio chest PE protcl [id number] 04/04/2023 10:08 AM RADIATION DOSE METRICS: Total DLP (mGy-cm): 772.3 FINDINGS: Thyroid: No significant thyroid pathology. Lungs: Compared with the prior study from 04/04/2023, there has been interval improved aeration of the lung bases with near-complete interval resolution of the airspace disease. There are still extensive predominantly streaky and linear opacities present with some interspersed ground-glass opacities. Pleural spaces: No pleural effusion. Heart: Cardiomegaly. Coronary arteries: No coronary artery calcification evident. Lymph nodes: Interval decrease in mediastinal lymphadenopathy. Example is a node in the lateral aortopulmonary window on series 3, image 23 currently measuring 1.1 cm short axis compared with 1.6 cm previously. Interval decrease in right hilar adenopathy currently measuring 1.7 cm short axis compared with 2.0 cm at a similar level. Borderline left hilar adenopathy. Vasculature: No evidence of thoracic aortic aneurysm. Liver: Hepatic steatosis. Gallbladder and bile ducts: Prior cholecystectomy. Adrenal glands: Right adrenal myelolipoma measuring up to 2.8 cm again noted. Incomplete imaging of the splenomegaly measuring 16.4 cm. Bones/joints: No significant bony pathology. Soft tissues: Unremarkable. CT/CT chest wo con [id number] IMPRESSION: 1. Interval improved aeration of the lung bases with near-complete interval resolution of airspace disease. Residual areas of atelectasis as described. 2. Interval decrease in mediastinal and right hilar lymphadenopathy. 3. Stable minor findings described above.
[2023-04-07 11:35] LABS: Glucose Point of Care 199 mg/dL (70-110)
[2023-04-07] MEDS: FUROsemide 10 mg/mL SDV 4mL 40 MG IVP (12:03)
[2023-04-07] MEDS: lidocaine 1% 5 ML in potassium chloride premix 100 ML 25 ML IV (12:03)
[2023-04-07] MEDS: ondansetron 2 mg/ML SDV 2 mL 4 MG IVP (12:04)
[2023-04-07] MEDS: bumetanide 0.25 mg/mL SDV 10 mL 2 MG IVP ×2 (12:04→23:39)
--- NOTE | 2023-04-07 13:00 | P.PN_ITS ---
Subjective 2 Subjective: Added diuresis today with aggressive dosages Patient is requiring more oxygen 85% on [address] chest Respiratory panel is negative Echo is still pending Patient is stating that overnight she became more short of breath Vitals/I&O/Wt Last Vital Signs Temp 98.3 F 04/07/23 03:49 Pulse 93 04/07/23 11:59 Resp 18 04/07/23 11:59 BP 116/70 04/07/23 03:49 Pulse Ox 92 04/07/23 11:59 O2 Del Method Heated High Flow 04/07/23 08:28 O2 Flow Rate 50 04/07/23 11:59 FiO2 75 04/07/23 11:59 04/06/23 04/07/23 04/07/23 22:59 06:59 14:59 Intake Total 240 / 620 200 / 200 Output Total 1950 / 2750 1750 / 4500 Balance -1710 / -2130 -1750 / -3880 200 / 200 Weight last 48 hrs Weight 159.982 kg Weight 166.468 kg Physical Exam 2 Narrative: Signs of fluid overload present Bilateral breath sounds, currently on heated high flow 50 L 85% Lower extremity swelling Abdomen distended No active shortness of breath or chest pain Sharp catheter in place Nonfocal neuroexam S1, S2 Urinary Catheter Management: Sharp: Cath Placed During This Visit: yes Reason for Continuing Indwelling Catheter: Accurate Measurement of Urinary Output in Critically Ill Patients Urinary Catheter Date of Insertion: 04/04/23 Urinary Catheter Time of Insertion: 23:00 Data 04/07/23 03:54 04/07/23 03:54 A&P Assessment and plan (1) Benign essential HTN: (2) Acute on chronic diastolic (congestive) heart failure: (3) Chest discomfort: (4) Fluid overload: (5) Hypoxia: (6) Acute respiratory failure with hypoxia and hypercapnia: (7) Anasarca: Plan Echo still pending I have increased the dose of diuretics added metolazone Patient is afebrile However hypoxia has not improved significant atelectasis and pneumonia, repeat CT chest today Rester panel is negative, will request LDH, lactic manage Fungitell test No sign of PE or DVT I will repeat her CT scan of chest again I have also increased the dose of potassium along with magnesium supplementation Full code -1.7 L fluid balance Hypervolemia hyponatremia I will broaden her antibiotic coverage to vancomycin Zosyn and IV steroid Attestations 2 Medical Necessity Statement*: Continue medical management Diagnoses Benign essential HTN I10 Acute on chronic diastolic (congestive) heart failure I50.33 Chest discomfort R07.89 Fluid overload E87.70 Hypoxia R09.02 Acute respiratory failure with hypoxia and hypercapnia J96.01; J96.02 Anasarca R60.1
--- NOTE | 2023-04-07 13:04 | USCV_ITS ---
Tammie Ayala Age: 47 Gender: F : 1975 Exam Date: 04/07/2023 18:42 Ordering Phys: Marc Mejia MD Technologist: Geo Rachel [place]am [place] [facility] [place] Indication: chf BP: 132 / 88 HR: 74 Rhythm: Sinus Technical Quality: Adequate MEASUREMENTS (Male / Female) Normal Values 2D ECHO LVOT Diameter 2.1 cm LV Ejection Fraction MOD 2C 67.1 % LV Ejection Fraction 2C AL 67.6 % LA Diameter 4.9 cm LA Width 3.0 cm LA Height 5.0 cm RA Width 3.4 cm RA Height 4.7 cm Aorta at Sinotubular Diameter 1.9 cm IVC Diameter 1.8 cm M-MODE MV E Point Septal Separation 0.5 cm DOPPLER AV Peak Velocity 162.3 cm/s LVOT Peak Velocity 86.0 cm/s AV Area Cont Eq vti 2.1 cm squared AV Area Cont Eq pk 1.8 cm squared MV Peak Velocity 127.0 cm/s MV Area PHT 5.6 cm squared Mitral E to A Ratio 1.2 MV E' Velocity 39.5 cm/s Mitral E to MV E' Ratio 7.4 Mitral E to LV E' Lateral Ratio 7.8 Mitral E to LV E' Septal Ratio 7.1 TR Peak Velocity 304.1 cm/s TR Peak Gradient 37.0 mmHg TR Mean Velocity 243.3 cm/s TR Mean Gradient 26.2 mmHg TR Velocity Time Integral 67.7 cm Right Atrial Pressure 3.0 mmHg Pulmonary Artery Systolic Pressu 40.0 mmHg PV Peak Velocity 116.0 cm/s RV Acceleration Time 0.1 s RV Ejection Time 0.2 s RV AcT/ET 0.3 FINDINGS Left Ventricle Technically limited quality echocardiogram because of poor ultrasonic windows. Left ventricle is normal in size. LV systolic function is normal with EF 55 to 60%. No regional wall motion abnormalities are seen. Right Ventricle Grossly normal Right Atrium Not well-visualized Left Atrium Not well-visualized Mitral Valve Grossly normal. Trace mitral regurgitation Aortic Valve Not well-visualized. No significant stenosis or regurgitation. Tricuspid Valve Not well-visualized Pulmonic Valve Not well-visualized Pericardium Not well-visualized Aorta Normal in size IVC Appears to be normal CONCLUSIONS Technically limited quality echocardiogram because of poor ultrasonic windows. LV systolic function is normal with EF of 55 to 60%. Trace mitral regurgitation. Compared to prior echocardiogram from 2022, no significant changes are seen Harish Garcia MD (Electronically Signed) Final Date: 08 April 2023 09:05 S
[2023-04-07] MEDS: methylPREDNISolone sod succ 40 mg/mL INJ 30 MG IVP (13:29)
[2023-04-07 13:30] LABS: ABG PCO2 53.9 mmHg (35-45); Arterial Blood Gas Hematocrit 38.7 % (37-47); Blood Gas Allen Test Pos; Blood Gas Operator Identificat GD; Blood Gas Sample Site Radial, right; Blood Gas Sample Type Arterial; HCO3 ABG 49.6 mmol/L (22-26); Oxygen Device NC; PO2 ABG 61.1 mmHg (80.0-100.0); PO2 FiO2 Ratio Arterial Blood 0
[2023-04-07 13:31] LABS: ABG PH Result 7.57 (7.35-7.45)
[2023-04-07] MEDS: vancomycin 2,000 MG/400 ML PIGGYBACK 200 MG IV (13:31)
[2023-04-07 14:23] LABS: Lactate Dehydrogenase 190 U/L (135-214)
[2023-04-07] MEDS: piperacillin-tazobactam 3.375 GM in sodium chloride 0.9% (plus) 50 ML IV ×2 (15:45→23:37)
[2023-04-07 17:12] LABS: Glucose Point of Care 222 mg/dL (70-110)
[2023-04-07] MEDS: metOLazone 5 MG Tablet PO (17:49)
[2023-04-07] MEDS: perflutren protein-a microsphr 0.22 mg/mL SDV 3 mL IV (19:30)
[2023-04-08] VITALS (34 sets, daily range): BP systolic 104–150; BP diastolic 56–89; PULSE 66–94; RESP 13–27; TEMP 36.5–37.1; O2SAT 87–95; BMI 59.5
[2023-04-08] MEDS: vancomycin 2,000 MG/400 ML PIGGYBACK 200 MG IV ×2 (02:04→13:01)
[2023-04-08] MEDS: methylPREDNISolone sod succ 40 mg/mL INJ 30 MG IVP ×2 (02:04→13:00)
[2023-04-08 02:25] LABS: Glucose Point of Care 236 mg/dL (70-110)
[2023-04-08 04:14] LABS: Basophils % 0.1 %; Hematocrit 39.7 % (36-47); Lymphocytes # 0.9 10^3/uL (0.8-4.8); Lymphocytes % 5.9 %; Mean Corpuscular HGB Conc 29.2 g/dL (30-55); Mean Corpuscular Hemoglobin 23.2 pg (27-33); Mean Corpuscular Volume 79.6 fl (85-98); Mean Platelet Volume 9.4 fL (7.4-10.4); Monocytes # 0.7 10^3/uL (0.2-0.9); Monocytes % 4.8 %; Neutrophils # 12.87 10^3/uL (1.8-7.7); Neutrophils % 88.8 %; Nucleated Red Blood Cells % 0 %; Platelet Count 293 10^3/cmm (157-399); Red Blood Count 4.99 10^6/uL (3.85-5.65); Red Cell Distribution Width 18.9 % (12.1-15.1)
[2023-04-08 04:38] LABS: Blood Urea Nitrogen 28 mg/dL (6-20); Calcium 11.5 mg/dL (8.5-10.5); Chloride 76 mmol/L (98-107); Glomerular Filtration Rate 59.2 mL/min (90-130); Glucose 219 mg/dL (65-115); Osmolality Calculated 274 mOsm/kg (285-295); Sodium 126 mmol/L (136-145)
[2023-04-08 04:47] LABS: Anion Gap 13.3 (5-19); Potassium 4.3 mmol/L (3.5-5.1)
[2023-04-08 04:49] LABS: Carbon Dioxide 41 mmol/L (22-29)
[2023-04-08] MEDS: pantoprazole 40 mg SDV IVP (04:56)
[2023-04-08 05:29] LABS: ABG PH Result 7.45 (7.35-7.45); Arterial Blood Gas Hematocrit 44.5 % (37-47); Base Excess ABG 19.1 mmol/L (-2.0-2.0); Blood Gas Allen Test Pos; Blood Gas Operator Identificat JB; Blood Gas Sample Site Radial, right; Blood Gas Sample Type Arterial; Blood Gas Tidal Volume 0.45; HCO3 ABG 47.4 mmol/L (22-26); Oxygen Device BIPAP; PO2 ABG 86.5 mmHg (80.0-100.0); PO2 FiO2 Ratio Arterial Blood 0
[2023-04-08] MEDS: piperacillin-tazobactam 3.375 GM in sodium chloride 0.9% (plus) 50 ML IV ×3 (06:35→22:44)
[2023-04-08] MEDS: budesonide 0.5 mg/2 mL Neb INHALATION ×2 (07:52→20:18)
[2023-04-08 08:20] LABS: Glucose Point of Care 242 mg/dL (70-110)
[2023-04-08] MEDS: metOLazone 5 MG Tablet PO ×2 (08:56→18:25)
[2023-04-08] MEDS: insulin lispro 100 unit/1 mL SUBCUT ×4 (08:56→22:44)
[2023-04-08] MEDS: potassium chloride ER 20 mEq Tablet 40 MEQ PO (08:57)
[2023-04-08] MEDS: magnesium lactate 84 mg Tablet PO (08:57)
[2023-04-08] MEDS: magnesium oxide 400 mg tablet PO ×2 (08:57→18:24)
[2023-04-08] MEDS: doxycycline 100 mg Tablet PO ×2 (08:57→18:25)
[2023-04-08] MEDS: carvedilol 12.5 mg Tablet PO ×2 (08:57→18:25)
[2023-04-08] MEDS: nystatin powder 15 gm Btl 1 APPLIC TOPICAL ×2 (08:58→18:26)
[2023-04-08] MEDS: enoxaparin 40 mg/0.4 mL Syringe SUBCUT (08:58)
--- NOTE | 2023-04-08 11:36 | PC.NURSE ---
Significant smoking history Marilu, pt's out of state daughter, called to notify medical team of pt's significant smoking history. States pt started smoking at 17 years of age and stopped when she was 41 years of age. Smoked 1 PPD. Pt confirmed info. H & P states pt never smoked . Dr Mejia notified.
[2023-04-08 12:17] LABS: Glucose Point of Care 324 mg/dL (70-110)
[2023-04-08] MEDS: bumetanide 0.25 mg/mL SDV 10 mL 2 MG IVP ×2 (12:59→22:45)
--- NOTE | 2023-04-08 13:31 | P.PN_ITS ---
Subjective 2 Subjective: This morning patient is on heated high flow 50 L 70% asking RT to wean off her oxygen CT imaging showing improvement of atelectasis Sodium is dropping today it is 126 patient still hypervolemic She is afebrile Compensated for her hypercapnia We arranged BiPAP I have signed her [facility] paperwork as well Vitals/I&O/Wt Last Vital Signs Temp 98.6 F 04/08/23 13:00 Pulse 85 04/08/23 13:00 Resp 18 04/08/23 12:00 BP 133/73 04/08/23 13:00 Pulse Ox 91 04/08/23 13:00 O2 Del Method BiPAP 04/08/23 07:45 O2 Flow Rate 50 04/08/23 12:00 FiO2 75 04/08/23 12:00 04/07/23 04/08/23 04/08/23 22:59 06:59 14:59 Intake Total 555 / 1055 600 / 1655 Output Total 1400 / 1400 2000 / 3400 Balance -845 / -345 -1400 / -1745 Weight last 48 hrs Weight 157.487 kg Weight 159.982 kg Physical Exam 2 Narrative: Patient is on heated high flow Able to eat breakfast Complaining of some tiredness and fatigue Otherwise hemodynamic stable Morbid obesity Anasarca Edema of lower extremities improving Venous dermatitis Nonpurulent cellulitis improving S1, S2 Urinary Catheter Management: Sharp: Cath Placed During This Visit: yes Reason for Continuing Indwelling Catheter: Accurate Measurement of Urinary Output in Critically Ill Patients Urinary Catheter Date of Insertion: 04/04/23 Urinary Catheter Time of Insertion: 23:00 Data 04/08/23 03:20 04/08/23 03:20 A&P Assessment and plan (1) Benign essential HTN: (2) Acute on chronic diastolic (congestive) heart failure: (3) Morbid obesity due to excess calories: (4) Fluid overload: (5) Hypoxia: (6) Acute respiratory failure with hypoxia and hypercapnia: (7) Acute on chronic respiratory failure with hypoxia and hypercapnia: (8) Anasarca: (9) Acute hyponatremia: Plan I will request serum and urine osmolarity along urine sodium Hyponatremia noted Patient is endorsing feeling fatigued and lethargic since yesterday Check sodium every 6 hours Patient is still hypervolemic Persistent hypoxia related to morbid obesity atelectasis improving with BiPAP We can give her a break from BiPAP to use heated high flow in order to prevent further atelectasis There is no significant pleural effusion peripheral edema, interstitial edema no signs of PE Right hilar lymphadenopathy Patient will be discharged home with a BiPAP which is important to prevent readmissions and intubation She should not return to work for at least optimization of her oxygen requirement I have signed her paperwork for FMLA LDH is not high my suspicion for PCP pneumonia is low Preserved ejection fraction heart failure exacerbation Continue diuresis -1.9 L No fever Full code I am anticipating that we will be able to wean her oxygen off Attestations 2 Medical Necessity Statement*: Discharge by Saturday Diagnoses Benign essential HTN I10 Acute on chronic diastolic (congestive) heart failure I50.33 Morbid obesity due to excess calories E66.01 Fluid overload E87.70 Hypoxia R09.02 Acute respiratory failure with hypoxia and hypercapnia J96.01; J96.02 Acute on chronic respiratory failure with hypoxia and hypercapnia J96.21; J96.22 Anasarca R60.1 Acute hyponatremia E87.1
[2023-04-08 13:54] LABS: Methicillin-Resist S.aureu PCR NOT DETECTED (NOT DETECTED)
[2023-04-08 15:00] LABS: Sodium 125 mmol/L (136-145)
[2023-04-08] MEDS: TRAMadol 50 mg Tablet PO ×2 (15:42→19:44)
[2023-04-08 18:02] LABS: Glucose Point of Care 236 mg/dL (70-110)
[2023-04-08 21:10] LABS: Sodium 128 mmol/L (136-145)
[2023-04-08 21:15] LABS: Urine Random Sodium 71 mmol/L
[2023-04-08 21:20] LABS: Creatinine Urine, Random 85 mg/dL (28-217); Microalbumin Random Urine 7 ug/dL (0-20)
[2023-04-08 21:20] LABS: Glucose Point of Care 272 mg/dL (70-110)
[2023-04-08 21:21] LABS: Microalbum Creatinine Ratio Ur 82 mg/dL (0-20)
--- NOTE | 2023-04-08 22:00 | PC.NURSE ---
High Dose Insulin Sliding Scale Patient's blood sugar [address] Islas notified; orders received to change insulin sliding scale dose from medium to high TIDWM starting with a dose per protocol now. See MAR for details.
[2023-04-08 22:54] LABS: Glucose Point of Care 246 mg/dL (70-110)
[2023-04-09] VITALS (32 sets, daily range): BP systolic 120–165; BP diastolic 45–80; PULSE 56–80; RESP 14–26; TEMP 36.7–37.1; O2SAT 83–95; BMI 58.8
[2023-04-09 03:51] LABS: ABG PH Result 7.47 (7.35-7.45); Alveolar-Arterial Oxygen Gradi 40.4 mmHg (5-10); Arterial Blood Gas Hematocrit 37.9 % (37-47); Base Excess ABG 21.1 mmol/L (-2.0-2.0); Blood Gas Allen Test Pos; Blood Gas Sample Site Radial, right; Blood Gas Sample Type Arterial; Blood Gas Tidal Volume 0.45; Carboxyhemoglobin 1.6 %THgb (0.4-20.1); HCO3 ABG 48.5 mmol/L (22-26); HGB O2 Sat 92.9 % (95-100); Ionized Calcium Level - ABG 1.5 mmol/L (1.1-1.4); Methemoglobin 0.8 % (0.4-1.5); Oxygen Device BIPAP; Oxygen Saturation ABG 95.2; PO2 ABG 74.9 mmHg (80.0-100.0); PO2 FiO2 Ratio Arterial Blood 0; Potassium Level - ABG 3.6 mmol/L (3.5-5.0); Total Hemoglobin 12.4 g/dL (12-16)
[2023-04-09 03:52] LABS: ABG PCO2 66.6 mmHg (35-45)
[2023-04-09] MEDS: pantoprazole 40 mg SDV IVP (04:24)
[2023-04-09 05:18] LABS: Basophils % 0.1 %; Eosinophils % 0.1 %; Hematocrit 41.5 % (36-47); Lymphocytes # 1.1 10^3/uL (0.8-4.8); Lymphocytes % 6.6 %; Mean Corpuscular HGB Conc 28.9 g/dL (30-55); Mean Corpuscular Hemoglobin 23.3 pg (27-33); Mean Corpuscular Volume 80.4 fl (85-98); Mean Platelet Volume 9.3 fL (7.4-10.4); Monocytes # 1.3 10^3/uL (0.2-0.9); Monocytes % 7.7 %; Neutrophils # 14.25 10^3/uL (1.8-7.7); Neutrophils % 85.1 %; Nucleated Red Blood Cells % 0 %; Platelet Count 291 10^3/cmm (157-399); Red Blood Count 5.16 10^6/uL (3.85-5.65); Red Cell Distribution Width 18.8 % (12.1-15.1); White Blood Count 16.73 10^3/uL (3.29-11.43)
[2023-04-09 05:49] LABS: Anion Gap 15.6 (5-19); Blood Urea Nitrogen 48 mg/dL (6-20); Calcium 12.7 mg/dL (8.5-10.5); Chloride 78 mmol/L (98-107); Glucose 254 mg/dL (65-115); Osmolality Calculated 295 mOsm/kg (285-295); Potassium 3.6 mmol/L (3.5-5.1); Sodium 132 mmol/L (136-145)
[2023-04-09 06:04] LABS: Carbon Dioxide 42 mmol/L (22-29)
[2023-04-09] MEDS: piperacillin-tazobactam 3.375 GM in sodium chloride 0.9% (plus) 50 ML IV ×3 (06:32→23:28)
[2023-04-09 07:42] LABS: Glucose Point of Care 246 mg/dL (70-110)
[2023-04-09] MEDS: budesonide 0.5 mg/2 mL Neb INHALATION ×2 (08:30→20:15)
[2023-04-09] MEDS: enoxaparin 40 mg/0.4 mL Syringe SUBCUT (08:46)
[2023-04-09] MEDS: metOLazone 5 MG Tablet PO (08:46)
[2023-04-09] MEDS: insulin lispro 100 unit/1 mL SUBCUT ×3 (08:46→18:16)
[2023-04-09] MEDS: carvedilol 12.5 mg Tablet PO ×2 (08:46→18:16)
[2023-04-09] MEDS: potassium chloride ER 20 mEq Tablet 40 MEQ PO (08:46)
[2023-04-09] MEDS: magnesium lactate 84 mg Tablet PO (08:47)
[2023-04-09] MEDS: doxycycline 100 mg Tablet PO ×2 (08:47→18:16)
[2023-04-09] MEDS: magnesium oxide 400 mg tablet PO ×2 (08:47→18:16)
[2023-04-09] MEDS: cefTRIAXone 1,000 MG in sodium chloride 0.9% (plus) 50 ML 100 MG IV (10:04)
[2023-04-09] MEDS: nystatin powder 15 gm Btl 1 APPLIC TOPICAL ×2 (10:05→18:16)
[2023-04-09 11:40] LABS: Glucose Point of Care 203 mg/dL (70-110)
--- NOTE | 2023-04-09 11:42 | PM.PN ---
Subjective Subjective: Persistent hypoxia, I have asked telehealth case manager to look into LTAC because she will take time to recover Patient is agreeable She thinks she has improved slightly Eating breakfast this morning On 50 L 65% heated high flow Used BiPAP overnight Creatinine 1.1 Bicarb is not compensation to her hypercarbia -22 L balance Sodium improved with diuresis Vitals/I&O/Wt Last Vital Signs Temp 98.8 F 04/09/23 08:00 Pulse 80 04/09/23 10:00 Resp 20 H 04/09/23 10:00 BP 133/74 04/09/23 10:00 Pulse Ox 83 L 04/09/23 10:00 O2 Del Method Heated High Flow 04/09/23 09:00 O2 Flow Rate 40 04/09/23 08:00 FiO2 50 04/09/23 08:00 04/08/23 04/09/23 04/09/23 22:59 06:59 14:59 Intake Total 100 / 100 50 / 150 350 / 350 Output Total 2400 / 2400 750 / 3150 1000 / 1000 Balance -2300 / -2300 -700 / -3000 -650 / -650 Weight last 48 hrs Weight 155.582 kg Weight 157.487 kg Physical Exam Narrative: Patient does have skin wrinkling of the lower extremities I do believe she has some improvement in her fluid overload now I could see improvement in swelling of her extremities Currently on heated high flow 50 L 65% Abdomen soft however distended Nonfocal neuroexam Wheezes dermatitis nonpurulent cellulitis of lower extremities improving Urinary Catheter Management: Sharp: Cath Placed During This Visit: yes Reason for Continuing Indwelling Catheter: Accurate Measurement of Urinary Output in Critically Ill Patients Urinary Catheter Date of Insertion: 04/04/23 Urinary Catheter Time of Insertion: 23:00 Data 04/09/23 04:23 04/09/23 04:23 A&P Assessment and plan (1) Benign essential HTN: (2) Acute on chronic diastolic (congestive) heart failure: (3) Morbid obesity due to excess calories: (4) Fluid overload: (5) Acute hyponatremia: (6) Hypoxia: (7) Anasarca: Plan 47-year female who was admitted for management evaluation of hypoxic respiratory failure related to CHF exacerbation and anasarca EF is preserved, she has been diuresed aggressively now suffering from contraction alkalosis I am holding her Bumex and metolazone, we have ruled out PE, she has significant atelectasis on repeated's CAT scan that is why we are using BiPAP to improve her atelectasis along incentive spirometer She does not move much, stays in her bed all day I will get her out of ICU to CSU today There is no thromboembolic phenomenon, no significant pleural effusion, COVID antigen negative respiratory panel negative She has venous's dermatitis with nonpurulent cellulitis which is improving I have mentioned to my telehealth case manager that we should look into LTAC because her oxygen requirement is still high she has been on heated high flow 50 L 85% however we have cut back on oxygen requirement to 65% today with BiPAP use at night Acute diastolic CHF exacerbation Contraction alkalosis Hold metolazone and Bumex today Acute hyponatremia hypervolemic in nature sodium improved with diuresis Persistent hypoxia related to significant atelectasis No signs of PE No pleural effusion or significant consolidation Because of her BMI she does not take deep breaths CT scan is also showing significant multiple atelectasis area for which we have recommended BiPAP Lower extremity venous stasis dermatitis and ulcer improving No active worsening of cellulitis continue doxycycline and Zosyn Transfer out of ICU to CSU Screening for LTAC DVT prophylaxis covered with Lovenox Cardiac consistent carb diet We have filled out her FMLA paperwork We cannot help her with divorce papers notarization Attestations Medical Necessity Statement*: Not ready to be discharged because of high oxygen requirement Diagnoses Benign essential HTN I10 Acute on chronic diastolic (congestive) heart failure I50.33 Morbid obesity due to excess calories E66.01 Fluid overload E87.70 Acute hyponatremia E87.1 Hypoxia R09.02 Anasarca R60.1
[2023-04-09] MEDS: TRAMadol 50 mg Tablet PO ×2 (13:36→23:40)
[2023-04-09 18:05] LABS: Glucose Point of Care 186 mg/dL (70-110)
--- NOTE | 2023-04-09 19:09 | PC.NURSE ---
All charting done by Ludy Vizcarra, resident RN, reviewed by this nurse.
[2023-04-09 22:10] LABS: Glucose Point of Care 206 mg/dL (70-110)
[2023-04-10] VITALS (21 sets, daily range): BP systolic 119–147; BP diastolic 61–83; PULSE 53–67; RESP 14–19; TEMP 36.4–36.9; O2SAT 88–97; BMI 59.8
[2023-04-10 03:59] LABS: Basophils % 0.2 %; Eosinophils % 0.2 %; Hematocrit 42.1 % (36-47); Lymphocytes # 2.1 10^3/uL (0.8-4.8); Lymphocytes % 16.8 %; Mean Corpuscular Hemoglobin 23.7 pg (27-33); Mean Corpuscular Volume 81.9 fl (85-98); Mean Platelet Volume 9.1 fL (7.4-10.4); Monocytes # 1.2 10^3/uL (0.2-0.9); Monocytes % 9.9 %; Neutrophils # 8.89 10^3/uL (1.8-7.7); Neutrophils % 72.5 %; Nucleated Red Blood Cells % 0 %; Platelet Count 262 10^3/cmm (157-399); Red Blood Count 5.14 10^6/uL (3.85-5.65); Red Cell Distribution Width 18.9 % (12.1-15.1); White Blood Count 12.27 10^3/uL (3.29-11.43)
[2023-04-10 04:18] LABS: Anion Gap 11.2 (5-19); Blood Urea Nitrogen 52 mg/dL (6-20); Calcium 11.7 mg/dL (8.5-10.5); Chloride 81 mmol/L (98-107); Glomerular Filtration Rate 66.8 mL/min (90-130); Glucose 148 mg/dL (65-115); Osmolality Calculated 293 mOsm/kg (285-295); Potassium 3.2 mmol/L (3.5-5.1); Sodium 133 mmol/L (136-145)
[2023-04-10] MEDS: TRAMadol 50 mg Tablet PO ×2 (04:24→11:25)
[2023-04-10] MEDS: pantoprazole 40 mg SDV IVP (04:24)
[2023-04-10 04:32] LABS: Carbon Dioxide 44 mmol/L (22-29)
[2023-04-10] MEDS: piperacillin-tazobactam 3.375 GM in sodium chloride 0.9% (plus) 50 ML IV ×3 (06:19→23:18)
[2023-04-10] MEDS: budesonide 0.5 mg/2 mL Neb INHALATION ×2 (08:01→21:18)
[2023-04-10] MEDS: magnesium lactate 84 mg Tablet PO (09:12)
[2023-04-10] MEDS: cefTRIAXone 1,000 MG in sodium chloride 0.9% (plus) 50 ML 100 MG IV (09:12)
[2023-04-10] MEDS: magnesium oxide 400 mg tablet PO ×2 (09:12→18:16)
[2023-04-10] MEDS: doxycycline 100 mg Tablet PO ×2 (09:13→18:16)
[2023-04-10] MEDS: enoxaparin 40 mg/0.4 mL Syringe SUBCUT (09:13)
[2023-04-10] MEDS: potassium chloride ER 20 mEq Tablet 40 MEQ PO ×2 (09:13→16:33)
[2023-04-10] MEDS: carvedilol 12.5 mg Tablet PO ×2 (09:13→18:16)
[2023-04-10 09:56] LABS: ABG PCO2 68.6 mmHg (35-45)
[2023-04-10 11:23] LABS: Glucose Point of Care 242 mg/dL (70-110)
[2023-04-10] MEDS: insulin lispro 100 unit/1 mL SUBCUT ×2 (13:02→18:16)
[2023-04-10 13:10] LABS: Osmolality Serum 282 mOsm/kg (278-305)
--- NOTE | 2023-04-10 13:20 | PM.PN ---
Subjective Subjective: Persistent hypoxia, baseline 2L, currently 6L. pending [facility] LT[facility] with CM. pt agreeable to plan pt feels improved this AM. was able to walk with PT. less swelling on legs. less SOB tolerating PO well on 6L NC. BiPAP at night time states she feels significantly improved on bipap. desires one for home. Bicarb is not compensation to her hypercarbia, slight regression -22 L balance Sodium continues to improve 2/2 diuresis, near normal range Medications: Reviewed: Yes Vitals/I&O/Wt Last Vital Signs Temp 98.3 F 04/10/23 11:09 Pulse 63 04/10/23 13:02 Resp 14 04/10/23 13:02 BP 147/83 04/10/23 13:02 Pulse Ox 88 L 04/10/23 13:02 O2 Del Method Heated High Flow, High Flow Nasal Cannula 04/10/23 13:02 O2 Flow Rate 8 04/10/23 11:21 FiO2 60 04/10/23 08:00 04/09/23 04/10/23 04/10/23 22:59 06:59 14:59 Intake Total 550 / 1050 50 / 1100 536 / 536 Output Total 975 / 2625 400 / 3025 Balance -425 / -1575 -350 / -1925 536 / 536 Weight last 48 hrs Weight 348 lb 9 oz Weight 343 lb Physical Exam Narrative: Patient does have skin wrinkling of the lower extremities, no weeping, 2+ edema to waste volume status improved RRR, normal S1 and S2, distant heart sounds 2/2 body habbitus faint bibasilar crackles, difficult 2/2 body habbitus. 6L NC Abdomen soft however distended Nonfocal neuroexam venous's dermatitis with nonpurulent cellulitis Urinary Catheter Management: Sharp: Cath Placed During This Visit: yes Reason for Continuing Indwelling Catheter: Accurate Measurement of Urinary Output in Critically Ill Patients Urinary Catheter Date of Insertion: 04/04/23 Urinary Catheter Time of Insertion: 23:00 Data 04/10/23 03:20 04/10/23 03:20 A&P Assessment and plan (1) Benign essential HTN: (2) Acute on chronic diastolic (congestive) heart failure: (3) Morbid obesity due to excess calories: (4) Fluid overload: (5) Acute hyponatremia: (6) Hypoxia: (7) Anasarca: (8) Hypokalemia: (9) Sinus tachycardia: Plan 47-year female who was admitted for management evaluation of hypoxic respiratory failure related to CHF exacerbation and anasarca EF is preserved, she has been diuresed aggressively now suffering from contraction alkalosis I am holding her Bumex and metolazone, we have ruled out PE, she has significant atelectasis on repeated's CAT scan that is why we are using BiPAP to improve her atelectasis along incentive spirometer. moved to CSU 04/09/23 stable has attempted walking around the room. seen sitting in the chair There is no thromboembolic phenomenon, no significant pleural effusion, COVID antigen negative respiratory panel negative She has venous's dermatitis with nonpurulent cellulitis which is improving I have mentioned to my correctional counselor/case manager that we should look into LTAC because her oxygen requirement is still high she has been on heated high flow 50 L 85% however we have cut back on oxygen requirement to 65% today with BiPAP use at night Acute diastolic CHF exacerbation Contraction alkalosis will hold metolozone, will re-start Bumex today. see how she tolerates it. BP appropriate repeat ABG in AM Acute hypervolemic hyponatremia. likely 2/2 volume overload. improving with diuresis Persistent hypoxia related to significant atelectasis. signs of improvement No signs of PE No pleural effusion or significant consolidation Because of her BMI she does not take deep breaths CT scan is also showing significant multiple atelectasis area for which we have recommended BiPAP Lower extremity venous stasis dermatitis and ulcer improving No active worsening of cellulitis continue doxycycline and Zosyn hypokalemia. additional KCL 40meq given today CM for [facility] DVT prophylaxis covered with Lovenox Cardiac consistent carb diet Attestations Medical Necessity Statement*: will require 2 overnight stays for afib and hypoxemia Coding Level of Care Code 73995 Diagnoses Benign essential HTN I10 Acute on chronic diastolic (congestive) heart failure I50.33 Morbid obesity due to excess calories E66.01 Fluid overload E87.70 Acute hyponatremia E87.1 Hypoxia R09.02 Anasarca R60.1 Hypokalemia E87.6 Sinus tachycardia R00.0
[2023-04-10] MEDS: bumetanide 0.25 mg/mL SDV 10 mL 2 MG IVP (16:34)
[2023-04-10 17:53] LABS: Glucose Point of Care 188 mg/dL (70-110)
[2023-04-10 20:42] LABS: Glucose Point of Care 247 mg/dL (70-110)
[2023-04-11] VITALS (13 sets, daily range): BP systolic 140–157; BP diastolic 69–86; PULSE 60–80; RESP 14–21; TEMP 36.4–37.1; O2SAT 88–95; BMI 60.7
[2023-04-11 04:07] LABS: Basophils # 0.1 10^3/uL (0.0-0.1); Basophils % 0.5 %; Eosinophils # 0.1 10^3/uL (0.0-0.8); Hematocrit 43.5 % (36-47); Lymphocytes # 2.1 10^3/uL (0.8-4.8); Mean Corpuscular HGB Conc 28.5 g/dL (30-55); Mean Corpuscular Hemoglobin 23.4 pg (27-33); Mean Corpuscular Volume 82.2 fl (85-98); Mean Platelet Volume 9.2 fL (7.4-10.4); Monocytes # 1.1 10^3/uL (0.2-0.9); Monocytes % 9.4 %; Neutrophils # 8.69 10^3/uL (1.8-7.7); Neutrophils % 71.9 %; Nucleated Red Blood Cells % 0 %; Platelet Count 264 10^3/cmm (157-399); Red Blood Count 5.29 10^6/uL (3.85-5.65); Red Cell Distribution Width 19.1 % (12.1-15.1)
[2023-04-11 04:27] LABS: Alanine Aminotransferase 17 U/L (0-33); Albumin Level 3.6 g/dL (3.5-5.2); Alkaline Phosphatase 120 U/L (35-105); Anion Gap 13.5 (5-19); Aspartate Amino Transferase 18 U/L (0-32); Blood Urea Nitrogen 47 mg/dL (6-20); Calcium 11.4 mg/dL (8.5-10.5); Chloride 84 mmol/L (98-107); Globulin 4.2 g/dL (1.3-4.6); Glomerular Filtration Rate 59.2 mL/min (90-130); Glucose 164 mg/dL (65-115); Osmolality Calculated 296 mOsm/kg (285-295); Potassium 3.5 mmol/L (3.5-5.1); Sodium 135 mmol/L (136-145); Total Bilirubin 0.6 mg/dL (0.15-1.2); Total Protein 7.8 g/dL (6.6-8.7)
[2023-04-11] MEDS: bumetanide 0.25 mg/mL SDV 10 mL 2 MG IVP ×2 (04:35→17:49)
[2023-04-11] MEDS: pantoprazole 40 mg SDV IVP (04:35)
[2023-04-11 04:43] LABS: Carbon Dioxide 41 mmol/L (22-29)
[2023-04-11 05:11] LABS: ABG PH Result 7.48 (7.35-7.45); Alveolar-Arterial Oxygen Gradi 30.6 mmHg (5-10); Arterial Blood Gas Hematocrit 40.6 % (37-47); Base Excess ABG 20.7 mmol/L (-2.0-2.0); Blood Gas Allen Test Pos; Blood Gas Sample Site Radial, right; Blood Gas Sample Type Arterial; Carboxyhemoglobin 1.2 %THgb (0.4-20.1); HCO3 ABG 48.1 mmol/L (22-26); HGB O2 Sat 93.8 % (95-100); Ionized Calcium Level - ABG 1.4 mmol/L (1.1-1.4); Methemoglobin 0.6 % (0.4-1.5); Oxygen Device BIPAP; Oxygen Saturation ABG 95.5; PO2 ABG 78.3 mmHg (80.0-100.0); PO2 FiO2 Ratio Arterial Blood 0; Potassium Level - ABG 3.5 mmol/L (3.5-5.0); Total Hemoglobin 13.3 g/dL (12-16)
[2023-04-11 05:13] LABS: ABG PCO2 64.8 mmHg (35-45)
[2023-04-11 06:28] LABS: Glucose Point of Care 198 mg/dL (70-110)
[2023-04-11 07:31] LABS: Glucose Point of Care 171 mg/dL (70-110)
[2023-04-11] MEDS: cefTRIAXone 1,000 MG in sodium chloride 0.9% (plus) 50 ML 100 MG IV (08:24)
[2023-04-11] MEDS: potassium chloride ER 20 mEq Tablet 40 MEQ PO (08:25)
[2023-04-11] MEDS: doxycycline 100 mg Tablet PO ×2 (08:25→17:51)
[2023-04-11] MEDS: magnesium lactate 84 mg Tablet PO (08:25)
[2023-04-11] MEDS: piperacillin-tazobactam 3.375 GM in sodium chloride 0.9% (plus) 50 ML IV ×2 (08:25→17:49)
[2023-04-11] MEDS: magnesium oxide 400 mg tablet PO ×2 (08:25→17:51)
[2023-04-11] MEDS: carvedilol 12.5 mg Tablet PO ×2 (08:25→17:52)
[2023-04-11] MEDS: enoxaparin 40 mg/0.4 mL Syringe SUBCUT (08:26)
[2023-04-11] MEDS: insulin lispro 100 unit/1 mL SUBCUT ×3 (08:26→17:52)
[2023-04-11] MEDS: lactulose oral liq 20 gm/30 mL UDC PO (08:42)
[2023-04-11] MEDS: budesonide 0.5 mg/2 mL Neb INHALATION ×2 (09:00→19:48)
--- NOTE | 2023-04-11 10:46 | P.PN_ITS ---
Subjective 2 Subjective: Patient is morning is saturating 91% on 4 to 5 L of nasal cannula She has made significant progress I have asked her to ambulate and see if her oxygen saturation will stay normal If she is saturating well on 4 to 5 L then we might be able to arrange discharge home instead of LTAC In case she worsens and gets hypoxic on ambulation then we will stick with the plan for LTAC screening Vitals/I&O/Wt Last Vital Signs Temp 97.6 F 04/11/23 07:19 Pulse 75 04/11/23 08:00 Resp 16 04/11/23 08:00 BP 140/80 04/11/23 07:19 Pulse Ox 92 04/11/23 08:00 O2 Del Method High Flow Nasal Cannula 04/11/23 08:00 O2 Flow Rate 4 04/11/23 08:00 FiO2 55 04/11/23 03:17 04/10/23 04/11/23 04/11/23 22:59 06:59 14:59 Intake Total 50 / 586 50 / 636 290 / 290 Output Total 2450 / 2450 500 / 2950 Balance -2400 / -1864 -450 / -2314 290 / 290 Weight last 48 hrs Weight 160.657 kg Weight 158.105 kg Physical Exam 2 Narrative: Awake alert Sinus fluid load improving Pleasant cough Currently on 4L nc Bilateral breath sounds Abdomen soft Nonfocal neuroexam Urinary Catheter Management: Sharp: Cath Placed During This Visit: yes Reason for Continuing Indwelling Catheter: Accurate Measurement of Urinary Output in Critically Ill Patients Urinary Catheter Date of Insertion: 04/04/23 Urinary Catheter Time of Insertion: 23:00 Data 04/11/23 03:21 04/11/23 03:21 A&P Assessment and plan (1) Benign essential HTN: (2) Acute on chronic diastolic (congestive) heart failure: (3) Sinus tachycardia: (4) Morbid obesity due to excess calories: (5) Fluid overload: (6) Acute hyponatremia: (7) Hypoxia: (8) Acute respiratory failure with hypoxia and hypercapnia: (9) Anasarca: Plan Acute diastolic CHF exacerbation Improving with diuresis Persistent hypoxia significant improvement noted currently on 4 L nasal cannula saturating 191% on rest I have asked patient to ambulate and see if we needs to schedule screening for LTAC versus discharge home if oxygen Is below 5 L Might be able to discharge her home today versus tomorrow if she is below 5 L oxygen requirement Hyponatremia has improved Atelectasis improving She will need BiPAP at the time of discharge Tachycardia improved No signs of PE Constipation: Given lactulose this morning Full code Attestations 2 Medical Necessity Statement*: Discharge later today versus tomorrow if BiPAP is arranged depending on her oxygen, Diagnoses Benign essential HTN I10 Acute on chronic diastolic (congestive) heart failure I50.33 Sinus tachycardia R00.0 Morbid obesity due to excess calories E66.01 Fluid overload E87.70 Acute hyponatremia E87.1 Hypoxia R09.02 Acute respiratory failure with hypoxia and hypercapnia J96.01; J96.02 Anasarca R60.1
[2023-04-11] MEDS: TRAMadol 50 mg Tablet PO (10:54)
[2023-04-11 11:30] LABS: Glucose Point of Care 223 mg/dL (70-110)
[2023-04-11 16:15] LABS: Aspergillus AG,EIA,Serum NOT DETECTED; Aspergillus Galactomannan Inde <0.50
[2023-04-11 16:30] LABS: Osmolality Urine 504 mOsm/kg (50-1200)
[2023-04-11 17:05] LABS: Glucose Point of Care 154 mg/dL (70-110)
[2023-04-11] MEDS: nystatin powder 15 gm Btl 1 APPLIC TOPICAL (17:56)
[2023-04-11 21:25] LABS: Glucose Point of Care 172 mg/dL (70-110)
[2023-04-12] VITALS (15 sets, daily range): BP systolic 121–150; BP diastolic 72–79; PULSE 63–89; RESP 16–23; TEMP 36.5–37.3; O2SAT 90–94
[2023-04-12] MEDS: piperacillin-tazobactam 3.375 GM in sodium chloride 0.9% (plus) 50 ML IV (01:20)
[2023-04-12] MEDS: bumetanide 0.25 mg/mL SDV 10 mL 2 MG IVP (04:27)
[2023-04-12] MEDS: pantoprazole 40 mg SDV IVP (04:27)
[2023-04-12 06:18] LABS: Glucose Point of Care 176 mg/dL (70-110)
[2023-04-12] MEDS: budesonide 0.5 mg/2 mL Neb INHALATION ×2 (08:06→19:53)
--- NOTE | 2023-04-12 10:21 | P.PN_ITS ---
Subjective 2 Subjective: Patient is doing well on 4-5 L Will request overnight pulse ox to arrange BiPAP at home At this point she would not qualify for LTAC Patient is able to ambulate Constipation relieved Vitals/I&O/Wt Last Vital Signs Temp 98.2 F 04/12/23 07:33 Pulse 75 04/12/23 08:07 Resp 16 04/12/23 08:05 BP 150/76 04/12/23 07:33 Pulse Ox 93 04/12/23 08:05 O2 Del Method High Flow Nasal Cannula 04/12/23 08:05 O2 Flow Rate 5 04/12/23 08:05 FiO2 55 04/12/23 03:11 04/11/23 04/12/23 04/12/23 22:59 06:59 14:59 Intake Total 910 / 1890 300 / 2190 Output Total 900 / 900 1400 / 2300 1900 / 1900 Balance 10 / 990 -1100 / -110 -1900 / -1900 Weight last 48 hrs Weight 159.075 kg Weight 160.657 kg Physical Exam 2 Narrative: Signs of anasarca improving Abdomen distended nontender Currently on 5 L Nasal cannula Nonfocal neuroexam GCS 15 Pleasant and cooperative Urinary Catheter Management: Sharp: Cath Placed During This Visit: yes Reason for Continuing Indwelling Catheter: Accurate Measurement of Urinary Output in Critically Ill Patients Urinary Catheter Date of Insertion: 04/04/23 Urinary Catheter Time of Insertion: 23:00 Data 04/11/23 03:21 04/11/23 03:21 A&P Assessment and plan (1) Benign essential HTN: (2) Acute on chronic diastolic (congestive) heart failure: (3) Sinus tachycardia: (4) Morbid obesity due to excess calories: (5) Fluid overload: (6) Acute hyponatremia: (7) Hypoxia: (8) Acute on chronic respiratory failure with hypoxia and hypercapnia: (9) Anasarca: Plan Patient is ready to be discharged home we are trying to arrange BiPAP will request overnight pulse ox study Currently doing well between 4 to 5 L Also able to ambulate without any difficulty Constipation relieved Continue Bumex however I will switch to oral instead of IV agent Discontinue Zosyn Continue doxycycline Blood pressure stable Sodium improved Attestations 2 Medical Necessity Statement*: Possible discharge by Saturday Diagnoses Benign essential HTN I10 Acute on chronic diastolic (congestive) heart failure I50.33 Sinus tachycardia R00.0 Morbid obesity due to excess calories E66.01 Fluid overload E87.70 Acute hyponatremia E87.1 Hypoxia R09.02 Acute on chronic respiratory failure with hypoxia and hypercapnia J96.21; J96.22 Anasarca R60.1
[2023-04-12] MEDS: carvedilol 12.5 mg Tablet PO ×2 (10:42→18:32)
[2023-04-12] MEDS: potassium chloride ER 20 mEq Tablet 40 MEQ PO (10:42)
[2023-04-12] MEDS: doxycycline 100 mg Tablet PO ×2 (10:43→18:32)
[2023-04-12] MEDS: magnesium oxide 400 mg tablet PO ×2 (10:43→18:32)
[2023-04-12] MEDS: enoxaparin 40 mg/0.4 mL Syringe SUBCUT (10:43)
[2023-04-12] MEDS: nystatin powder 15 gm Btl 1 APPLIC TOPICAL ×2 (10:44→18:32)
[2023-04-12] MEDS: magnesium lactate 84 mg Tablet PO (10:45)
[2023-04-12] MEDS: insulin lispro 100 unit/1 mL SUBCUT ×3 (10:45→18:33)
[2023-04-12 10:46] LABS: Glucose Point of Care 230 mg/dL (70-110)
[2023-04-12 16:58] LABS: Glucose Point of Care 159 mg/dL (70-110)
[2023-04-12] MEDS: TRAMadol 50 mg Tablet PO (18:31)
[2023-04-12 21:03] LABS: Glucose Point of Care 293 mg/dL (70-110)
[2023-04-12 21:04] LABS: Fungitell 1-3-B Glucan Assay 44 pg/mL; Interpretation NEGATIVE
[2023-04-13] VITALS (17 sets, daily range): BP systolic 123–147; BP diastolic 56–80; PULSE 61–75; RESP 16–22; TEMP 36.3–36.9; O2SAT 90–94
[2023-04-13] MEDS: TRAMadol 50 mg Tablet PO (01:41)
[2023-04-13 06:46] LABS: Glucose Point of Care 160 mg/dL (70-110)
[2023-04-13] MEDS: budesonide 0.5 mg/2 mL Neb INHALATION ×2 (08:06→19:58)
--- NOTE | 2023-04-13 08:54 | P.PN_ITS ---
Subjective 2 Subjective: Patient will stay in the hospital until we get BiPAP approved this will most likely happen on Saturday Endorsing feeling better Vitals/I&O/Wt Last Vital Signs Temp 97.4 F L 04/13/23 07:09 Pulse 66 04/13/23 08:06 Resp 18 04/13/23 08:06 BP 147/73 04/13/23 07:09 Pulse Ox 90 04/13/23 08:06 O2 Del Method Nasal Cannula 04/13/23 08:06 O2 Flow Rate 5 04/13/23 08:06 FiO2 55 04/12/23 03:11 04/12/23 04/13/23 04/13/23 22:59 06:59 14:59 Intake Total 200 / 500 150 / 650 Output Total 800 / 5100 750 / 5850 Balance -600 / -4600 -600 / -5200 Weight last 48 hrs Weight 157.034 kg Weight 159.075 kg Physical Exam 2 Narrative: Awake and alert Patient woke up this morning Currently on 5 L GCS 15 Nonfocal neuroexam Feeling much better Fluid overload improving Urinary Catheter Management: Sharp: Cath Placed During This Visit: yes Reason for Continuing Indwelling Catheter: Accurate Measurement of Urinary Output in Critically Ill Patients Urinary Catheter Date of Insertion: 04/04/23 Urinary Catheter Time of Insertion: 23:00 Data 04/11/23 03:21 04/11/23 03:21 A&P Assessment and plan (1) Benign essential HTN: (2) Sinus tachycardia: (3) Morbid obesity due to excess calories: (4) Acute hyponatremia: (5) Fluid overload: (6) Hypoxia: (7) Acute on chronic respiratory failure with hypoxia and hypercapnia: (8) Acute respiratory failure with hypoxia and hypercapnia: (9) Anasarca: Plan Patient is requiring 5 L during the day and BiPAP at night It is very important for her to use BiPAP to avoid readmissions and intubation in future She has compensated very well for her chronic hypercapnia Overnight pulse ox study reviewed She will stay here until Saturday likely will go home with BiPAP Constipation relieved DVT prophylaxis covered Attestations 2 Medical Necessity Statement*: Discharge on Saturday Diagnoses Benign essential HTN I10 Sinus tachycardia R00.0 Morbid obesity due to excess calories E66.01 Acute hyponatremia E87.1 Fluid overload E87.70 Hypoxia R09.02 Acute on chronic respiratory failure with hypoxia and hypercapnia J96.21; J96.22 Acute respiratory failure with hypoxia and hypercapnia J96.01; J96.02 Anasarca R60.1
[2023-04-13] MEDS: insulin lispro 100 unit/1 mL SUBCUT ×3 (10:11→17:50)
[2023-04-13] MEDS: magnesium lactate 84 mg Tablet PO (10:11)
[2023-04-13] MEDS: enoxaparin 40 mg/0.4 mL Syringe SUBCUT (10:11)
[2023-04-13] MEDS: potassium chloride ER 20 mEq Tablet 40 MEQ PO (10:12)
[2023-04-13] MEDS: doxycycline 100 mg Tablet PO ×2 (10:12→17:50)
[2023-04-13] MEDS: carvedilol 12.5 mg Tablet PO ×2 (10:13→17:50)
[2023-04-13] MEDS: magnesium oxide 400 mg tablet PO ×2 (10:13→17:50)
[2023-04-13] MEDS: bumetanide 1 mg Tablet 2 MG PO (10:13)
[2023-04-13] MEDS: nystatin powder 15 gm Btl 1 APPLIC TOPICAL (10:14)
[2023-04-13 11:44] LABS: Glucose Point of Care 185 mg/dL (70-110)
[2023-04-13] MEDS: acetaminophen 500 mg Tablet PO (12:14)
[2023-04-13 16:33] LABS: Glucose Point of Care 194 mg/dL (70-110)
[2023-04-13] MEDS: flu vacc pf 2023-24 (6 mos+) 60 MCG IM (20:52)
[2023-04-13] MEDS: pneumococcal (23 valent) SDV 0.5 mL IM (20:55)
[2023-04-13 21:14] LABS: Glucose Point of Care 167 mg/dL (70-110)
[2023-04-14] VITALS (13 sets, daily range): BP systolic 109–135; BP diastolic 54–79; PULSE 58–82; RESP 16–21; TEMP 36.6–36.8; O2SAT 92–98
[2023-04-14 04:21] LABS: Blood Urea Nitrogen 39 mg/dL (6-20); Calcium 11.4 mg/dL (8.5-10.5); Carbon Dioxide 36 mmol/L (22-29); Chloride 87 mmol/L (98-107); Glomerular Filtration Rate 76.6 mL/min (90-130); Glucose 153 mg/dL (65-115); Osmolality Calculated 288 mOsm/kg (285-295); Sodium 133 mmol/L (136-145)
[2023-04-14 04:26] LABS: Anion Gap 13.6 (5-19); Potassium 3.6 mmol/L (3.5-5.1)
[2023-04-14 06:18] LABS: Glucose Point of Care 176 mg/dL (70-110)
[2023-04-14] MEDS: budesonide 0.5 mg/2 mL Neb INHALATION (07:43)
--- NOTE | 2023-04-14 08:41 | P.PN_ITS ---
Subjective 2 Subjective: We can remove her Sharp catheter today Patient is agreeable Patient is endorsing feeling much better I have asked RT to switch her AVAPS settings to BiPAP will use 22/02 FiO2 40 to 45%. Patient is having regular bowel movement Patient is stating that she was able to walk on 4 to 5 L as well Vitals/I&O/Wt Last Vital Signs Temp 98.0 F 04/14/23 04:00 Pulse 72 04/14/23 07:44 Resp 20 H 04/14/23 07:44 BP 132/79 04/14/23 07:36 Pulse Ox 94 04/14/23 07:44 O2 Del Method High Flow Nasal Cannula 04/14/23 07:44 O2 Flow Rate 5 04/14/23 07:44 FiO2 55 04/14/23 07:15 04/13/23 04/14/23 04/14/23 22:59 06:59 14:59 Intake Total 50 / 590 250 / 840 Output Total 1000 / 1000 800 / 1800 Balance -950 / -410 -550 / -960 Weight last 48 hrs Weight 157.442 kg Weight 157.034 kg Physical Exam 2 Narrative: Sign of fluid load improving Currently on high flow nasal cannula 5 L GCS 15 pleasant cooperative Signs of fluid load improving pleasant cooperative abdomen soft Urinary Catheter Management: Sharp: Cath Placed During This Visit: yes Reason for Continuing Indwelling Catheter: Acute Urinary Retention or Obstruction Urinary Catheter Date of Insertion: 04/04/23 Urinary Catheter Time of Insertion: 23:00 Data 04/11/23 03:21 04/14/23 03:38 A&P Assessment and plan (1) Benign essential HTN: (2) Acute on chronic diastolic (congestive) heart failure: (3) Sinus tachycardia: (4) Fluid overload: (5) Hypoxia: (6) Acute hyponatremia: (7) Acute on chronic respiratory failure with hypoxia and hypercapnia: (8) Anasarca: Plan Anasarca: Improving Hypercapnic hypoxic respiratory failure will change AVAPS to BiPAP settings 22/02, respiratory rate 14, FiO2 40 to 45% Will discharge likely on Saturday once BiPAP is set up at home which is important to prevent readmission, respiratory failure, intubation hypoxia causing cardiac She will need diuretics with potassium supplementation at the time of discharge Sharp catheter can be removed today No signs of PE or DVT Atelectasis improving Attestations 2 Medical Necessity Statement*: Discharge likely tomorrow Diagnoses Benign essential HTN I10 Acute on chronic diastolic (congestive) heart failure I50.33 Sinus tachycardia R00.0 Fluid overload E87.70 Hypoxia R09.02 Acute hyponatremia E87.1 Acute on chronic respiratory failure with hypoxia and hypercapnia J96.21; J96.22 Anasarca R60.1
[2023-04-14] MEDS: magnesium lactate 84 mg Tablet PO (08:55)
[2023-04-14] MEDS: insulin lispro 100 unit/1 mL SUBCUT ×3 (08:55→17:44)
[2023-04-14] MEDS: potassium chloride ER 20 mEq Tablet 40 MEQ PO (08:55)
[2023-04-14] MEDS: magnesium oxide 400 mg tablet PO ×2 (08:55→17:45)
[2023-04-14] MEDS: carvedilol 12.5 mg Tablet PO ×2 (08:56→17:45)
[2023-04-14] MEDS: enoxaparin 40 mg/0.4 mL Syringe SUBCUT (08:56)
[2023-04-14] MEDS: bumetanide 1 mg Tablet 2 MG PO (08:56)
[2023-04-14] MEDS: doxycycline 100 mg Tablet PO ×2 (08:56→17:45)
[2023-04-14 11:24] LABS: Glucose Point of Care 260 mg/dL (70-110)
[2023-04-14] MEDS: acetaminophen 500 mg Tablet PO ×2 (15:54→20:40)
[2023-04-14 17:23] LABS: Glucose Point of Care 147 mg/dL (70-110)
[2023-04-14 20:39] LABS: Glucose Point of Care 180 mg/dL (70-110)
[2023-04-14] MEDS: lanolin oint 7 gm 1 APPLIC TOPICAL (21:21)
[2023-04-15] VITALS (9 sets, daily range): BP systolic 122–142; BP diastolic 55–75; PULSE 61–80; RESP 18–24; TEMP 36.4–37.1; O2SAT 83–97; BMI 59.6
[2023-04-15 06:39] LABS: Glucose Point of Care 133 mg/dL (70-110)
[2023-04-15] MEDS: doxycycline 100 mg Tablet PO (08:53)
[2023-04-15] MEDS: carvedilol 12.5 mg Tablet PO (08:54)
[2023-04-15] MEDS: bumetanide 1 mg Tablet 2 MG PO (08:54)
[2023-04-15] MEDS: enoxaparin 40 mg/0.4 mL Syringe SUBCUT (08:54)
[2023-04-15] MEDS: magnesium lactate 84 mg Tablet PO (08:54)
[2023-04-15] MEDS: potassium chloride ER 20 mEq Tablet 40 MEQ PO (08:54)
[2023-04-15] MEDS: magnesium oxide 400 mg tablet PO (08:54)
[2023-04-15] MEDS: budesonide 0.5 mg/2 mL Neb INHALATION (09:40)
--- NOTE | 2023-04-15 10:20 | PM.DCS ---
Discharge Providers Date of Admission: 04/04/23 00:50 Date of Discharge: April 15, 2023 Attending Provider at Admission: Mehrdad Jimenez MD Attending Provider at Discharge: Marc Mejia MD Primary Care Provider: Jus Espinal MD Diagnoses at Discharge Discharge Diagnosis (1) Benign essential HTN: Status: Acute (2) Acute on chronic diastolic (congestive) heart failure: Status: Acute (3) Sinus tachycardia: Status: Acute (4) Fluid overload: Status: Acute (5) Hypoxia: Status: Acute (6) Acute hyponatremia: Status: Acute (7) Acute on chronic respiratory failure with hypoxia and hypercapnia: Status: Acute (8) Anasarca: Status: Acute Reason for Visit Reason for Visit: sob, slurred speech Hospital Course Hospital Course 41 female who was admitted for management evaluation of acute on chronic hypoxic respiratory failure along hypercarbia, her bicarb was remarkably high with hypercapnia and compensation, she was diagnosed with diastolic CHF exacerbation, echo showed preserved ejection fraction, she was treated with antibiotics for pneumonia as well, she was diuresed aggressively which improved her hypervolemic anasarca, however it took us roughly 10 to 12 days to improve her oxygenation CT scan of chest showed significant to left this is related to her BMI and hypoventilation, she was given incentive spirometer, Mucomyst, chest vest, at the time of discharge she is only requiring 4 to 5 L of oxygen on ambulation during the day and she uses BiPAP/AVAPS settings every night BiPAP settings I have recommended were 22/12/respiratory rate 15, FiO2 40 to 50% Did patient financial counselor patient to stay compliant with her BiPAP every night along oxygen in the morning. We were planning to send her to long-term acute care because she was consistently requiring BiPAP in the ICU, she was getting BiPAP dependent however over the weekend her condition improved and she was able to stay off BiPAP for more than 8 hours was able to eat and ambulate on nasal cannula. At the time of discharge we will add Bumex, Advair, Spiriva, potassium supplementation, she does have venous stasis ulcer which seem to be getting better manager of software development updated me that we are not able to set up BiPAP because she is not qualified as per the pulse oximeter study she has not discharged to more than 5 minutes we have to give her outpatient sleep study referral Physical Exam Narrative: Awake and alert Anasarca improving Currently on 5 L DC 50 Pleasant cooperative Distended abdomen Urinary Catheter Management: Sharp: Cath Placed During This Visit: yes, but has since been removed by the nurse Reason for Continuing Indwelling Catheter: Accurate Measurement of Urinary Output in Critically Ill Patients Urinary Catheter Date of Insertion: 04/04/23 Urinary Catheter Time of Insertion: 23:00 Date Urinary Catheter Removed: 04/14/23 Discharge Data Studies Completed and Pending Completed Studies During Hospitalization Category Date Time Status CT chest wo con [id number] Routine Cat Scan 04/07/23 11:29 Completed CTA PE [CT angio chest PE protcl [id number]] Routine Cat Scan 04/04/23 08:07 Completed XR chest 1V portable [id number] Stat Exams 04/03/23 21:49 [place] [id number] Stat Ultrasound 04/04/23 00:17 Completed CV. echo wo/w contrast [id number] Stat Ultrasound 04/07/23 13:04 Completed Radiology Impressions Chest X-Ray 04/03/23 21:49 IMPRESSION: 1. Pulmonary vascular congestion. 2. Nonspecific opacity in the right hilar region. Correlation with CT is recommended to exclude mass and/or hilar adenopathy. Chest CT 04/07/23 11:29 IMPRESSION: 1. Interval improved aeration of the lung bases with near-complete interval resolution of airspace disease. Residual areas of atelectasis as described. 2. Interval decrease in mediastinal and right hilar lymphadenopathy. 3. Stable minor findings described above. Laboratory Results WBC 12.10 10^3/uL (3.29-11.43) H 04/11/23 03:21 RBC 5.29 10^6/uL (3.85-5.65) 04/11/23 03:21 Hgb 12.40 g/dL (11.27-16.99) 04/11/23 03:21 Hct 43.5 % (36-47) 04/11/23 03:21 MCV 82.2 fl (85-98) L 04/11/23 03:21 MCH 23.4 pg (27-33) L 04/11/23 03:21 MCHC 28.5 g/dL (30-55) L 04/11/23 03:21 RDW 19.1 % (12.1-15.1) H 04/11/23 03:21 Plt Count 264 10^3/cmm (157-399) 04/11/23 03:21 MPV 9.2 fL (7.4-10.4) 04/11/23 03:21 Neut % (Auto) 71.9 % 04/11/23 03:21 Lymph % (Auto) 17.0 % 04/11/23 03:21 Edmunds % (Auto) 9.4 % 04/11/23 03:21 Eos % (Auto) 1.0 % 04/11/23 03:21 Baso % (Auto) 0.5 % 04/11/23 03:21 Neut # (Auto) 8.69 10^3/uL (1.8-7.7) H 04/11/23 03:21 Lymph # (Auto) 2.1 10^3/uL (0.8-4.8) 04/11/23 03:21 Edmunds # (Auto) 1.1 10^3/uL (0.2-0.9) H 04/11/23 03:21 Eos # (Auto) 0.1 10^3/uL (0.0-0.8) 04/11/23 03:21 Baso # (Auto) 0.1 10^3/uL (0.0-0.1) 04/11/23 03:21 Nucleated RBC % (auto) 0 % 04/11/23 03:21 Nucleated RBCs # 0.0 /100WBC 04/11/23 03:21 ESR 101 mm/hr (0-15) H 04/03/23 22:00 Specimen Type Arterial 04/11/23 05:01 Sample Site Radial, right 04/11/23 05:01 ABG pH 7.48 (7.35-7.45) H 04/11/23 05:01 ABG pCO2 64.8 mmHg (35-45) H* 04/11/23 05:01 ABG pO2 78.3 mmHg (80.0-100.0) L 04/11/23 05:01 ABG PO2/FiO2 Ratio 0 04/11/23 05:01 ABG HCO3 48.1 mmol/L (22-26) H 04/11/23 05:01 ABG O2 Saturation 95.5 04/11/23 05:01 ABG Base Excess 20.7 mmol/L (-2.0-2.0) H 04/11/23 05:01 Wesley Test Pos 04/11/23 05:01 A-a O2 Gradient 30.6 mmHg (5-10) H 04/11/23 05:01 Hematocrit 40.6 % (37-47) 04/11/23 05:01 Hgb O2 Saturation 93.8 % (95-100) L 04/11/23 05:01 Carboxyhemoglobin 1.2 %THgb (0.4-20.1) 04/11/23 05:01 Methemoglobin 0.6 % (0.4-1.5) 04/11/23 05:01 Total Hemoglobin 13.3 g/dL (12-16) 04/11/23 05:01 Sodium 135.0 mmol/L (131-143) 04/11/23 05:01 Potassium 3.5 mmol/L (3.5-5.0) 04/11/23 05:01 Glucose 165.0 mg/dL (70-115) H 04/11/23 05:01 Ionized Calcium 1.4 mmol/L (1.1-1.4) 04/11/23 05:01 O2 Delivery Device Bipap 04/11/23 05:01 O2 Liters/Min 50.0 % 04/07/23 13:15 FiO2 55.0 % 04/11/23 05:01 Tidal Volume 0.45 04/09/23 03:45 PEEP 12.0 cmH20 04/09/23 03:45 Derrickman Helper ID Harkr1 04/11/23 05:01 Sodium 133 mmol/L (136-145) L 04/14/23 03:38 Potassium 3.6 mmol/L (3.5-5.1) 04/14/23 03:38 Chloride 87 mmol/L (98-107) L 04/14/23 03:38 Carbon Dioxide 36 mmol/L (22-29) H 04/14/23 03:38 Anion Gap 13.6 (5-19) 04/14/23 03:38 BUN 39 mg/dL (6-20) H 04/14/23 03:38 Creatinine 0.8 mg/dL (0.5-0.9) 04/14/23 03:38 GFR Calculation 76.6 mL/min (90-130) L 04/14/23 03:38 Glucose 153 mg/dL (65-115) H 04/14/23 03:38 POC Glucose 133 mg/dL (70-110) H 04/15/23 06:27 Estimat Average Glucose 160 04/04/23 04:31 Hemoglobin A1c 7.2 % (4.0-6.0) H 04/04/23 04:31 Serum Osmolality 282 mOsm/kg (278-305) 04/08/23 13:20 Calculated Osmolality 288 mOsm/kg (285-295) 04/14/23 03:38 Calcium 11.4 mg/dL (8.5-10.5) H 04/14/23 03:38 Phosphorus 2.9 mg/dL (2.5-4.5) 04/05/23 04:38 Magnesium 1.6 mg/dL (1.7-2.3) L 04/05/23 04:38 Total Bilirubin 0.6 mg/dL (0.15-1.2) 04/11/23 03:21 AST 18 U/L (0-32) 04/11/23 03:21 ALT 17 U/L (0-33) 04/11/23 03:21 Alkaline Phosphatase 120 U/L (35-105) H 04/11/23 03:21 Lactate Dehydrogenase 190 U/L (135-214) 04/07/23 13:38 Troponin T 5th Gen ng/L 15 ng/L (0-10) H 04/05/23 01:05 Troponin T Baseline 10 ng/L (0-10) 04/03/23 22:00 Troponin T 120 Minute 9.86 ng/L (0-10) 04/04/23 00:01 Delta Troponin T -0.14 ABS# (0-10) L 04/04/23 00:01 Troponin T Hi Sens 6Hr 12.56 ng/L (0-10) H 04/04/23 04:31 Troponin T Hi Sens 6Hr Delta 2.56 ng/L (0-12) 04/04/23 04:31 C-Reactive Protein 65.5 mg/L (0.0-4.9) H 04/03/23 22:00 NT-Pro-B Natriuret Pep 214 pg/mL (0-125) H 04/05/23 04:38 Total Protein 7.8 g/dL (6.6-8.7) 04/11/23 03:21 Albumin 3.6 g/dL (3.5-5.2) 04/11/23 03:21 Globulin 4.2 g/dL (1.3-4.6) 04/11/23 03:21 Procalcitonin 0.17 ng/mL (0-0.5) 04/03/23 22:00 TSH 1.33 uIU/mL (0.27-4.20) 04/04/23 04:31 HCG, Qual Negative (Negative) 04/03/23 22:00 Urine Color Yellow (Yellow) 04/04/23 21:01 Urine Appearance Clear (CLEAR) 04/04/23 21:01 Urine pH 7 (5-7) 04/04/23 21: Ur Specific [place] 1.005 (1.005-1.030) 04/04/23 21:01 Urine Protein Neg (Negative) 04/04/23 21:01 Urine Glucose (UA) Norm (Normal) 04/04/23 21: Urine Ketones Negative (Negative) 04/04/23 21: Urine Blood Neg (Negative) 04/04/23 21:01 Urine Nitrate Negative (Negative) 04/04/23 21: Urine Bilirubin Neg (Negative) 04/04/23 21:01 Urine Urobilinogen Norm mg/dL (Negative) 04/04/23 21:01 Ur Leukocyte Esterase Negative (Negative) 04/04/23 21:01 Urine Osmolality 504 mOsm/kg (50-1200) 04/08/23 20:37 Ur Random Microalbumin 7 ug/dL (0-20) 04/08/23 20:37 Ur Random Sodium 71 mmol/L 04/08/23 20:37 Urine Creatinine 85 mg/dL (28-217) 04/08/23 20:37 Microalb/Creat Ratio 82 mg/dL (0-20) H 04/08/23 20:37 Adenovirus (PCR) Not detected (NOT DETECT) 04/06/23 12:50 C. pneumoniae DNA (PCR) Not detected (NOT DETECT) 04/06/23 12:50 Coronavirus 229E (PCR) Not detected (NOT DETECT) 04/06/23 12:50 Human Metapneumovir PCR Not detected (NOT DETECT) 04/06/23 12:50 Influenza A (H1) PCR Not detected (NOT DETECT) 04/06/23 12:50 Influ A (H1/09) PCR Not detected (NOT DETECT) 04/06/23 12:50 Influenza A (H3) PCR Not detected (NOT DETECT) 04/06/23 12:50 Influenza Type A (PCR) Not detected (NOT DETECT) 04/06/23 12:50 Influenza Type B (PCR) Not detected (NOT DETECT) 04/06/23 12:50 M. pneumoniae (PCR) Not detected (NOT DETECT) 04/06/23 12:50 Parainfluenza 1 (PCR) Not detected (NOT DETECT) 04/06/23 12:50 Parainfluenza 2 (PCR) Not detected (NOT DETECT) 04/06/23 12:50 Parainfluenza 3 (PCR) Not detected (NOT DETECT) 04/06/23 12:50 Parainfluenza 4 (PCR) Not detected (NOT DETECT) 04/06/23 12:50 A. galactomannan Ag EIA Not detected 04/07/23 13:38 A. galactomannan Ag Idx <0.50 04/07/23 13:38 RSV Type A (PCR) Not detected (NOT DETECT) 04/06/23 12:50 RSV Type B (PCR) Not detected (NOT DETECT) 04/06/23 12:50 Entero/Rhino (PCR) Not detected (NOT DETECT) 04/06/23 12:50 SARS-CoV-2 (PCR) Not detected (NOT DETECT) 04/06/23 12:50 MRSA (PCR) Not detected (NOT DETECTED) 04/07/23 13:25 Beta-(1,3)-D-Glucan 44 pg/mL 04/07/23 03:59 B-(1,3)-D-Glucan Intrp Negative 04/07/23 03:59 Vitals Last Vital Signs Temp 98.8 F 04/15/23 07:40 Pulse 80 04/15/23 08:00 Resp 18 04/15/23 08:00 BP 133/72 04/15/23 07:40 Pulse Ox 96 04/15/23 08:00 O2 Del Method Nasal Cannula 04/15/23 08:00 O2 Flow Rate 4 04/15/23 08:00 FiO2 40 04/15/23 04:00 Discharge Plan Discharge Patient Disposition: Home Condition: Stable Prescriptions: New doxycycline monohydrate 100 mg Tablet 100 mg PO BID Qty: 6 0RF Klor-Con M20 20 mEq Tablet,Er Particles/Crystals 40 meq PO DAILY Qty: 60 3RF Rx Instructions: Take only with Bumex bumetanide 1 mg Tablet 2 mg PO DAILY Qty: 60 3RF Spiriva Respimat 1.25 mcg/actuation mist 2 inh inhalation DAILY Qty: 4 4RF Advair HFA 45-21 mcg/actuation HFA aerosol inhaler 2 inh inhalation BID Qty: 12 4RF albuterol sulfate 90 mcg/actuation HFA aerosol inhaler 2 inh inhalation Q8H PRN (Reason: shortness of breath or wheezing) Qty: 6.7 0RF Continued amlodipine 10 mg tablet 10 mg PO QAM carvedilol 12.5 mg tablet 12.5 mg PO BID Qty: 180 3RF Rx Instructions: must administer with a meal/food magnesium L-lactate 84 mg tablet extended release 84 mg PO QAM potassium chloride 20 mEq tablet extended release 20 meq PO QAM Qty: 30 3RF Discontinued spironolactone 25 mg tablet 25 mg PO QAM furosemide 40 mg tablet 40 mg PO QAM ibuprofen 200 mg Tablet 400 - 600 mg PO Q6H PRN (Reason: Pain) Discharge Orders: Discharge Order (Routine); Ordered 04/15/23 Ordered By: Marc Mejia Other Ambulatory Orders: DME: BIPAP (Order) Location: None Selected Ordered By: Marc Mejia Sleep Study W Sleep Stage (Routine) Timeframe: 1 Day Facility: [facility] - Location: [facility] Ordered By: Azucena Kennedy Referrals: Jus Espinal MD [Primary Care Provider] - 04/22/23 1:00 pm Patient Instructions: Bumetanide (By mouth) (Bumex), Doxycycline (By mouth), Albuterol (By breathing), Potassium Chloride (By mouth), Fluticasone/Salmeterol (By breathing) (Advair Diskus 100/50, Advair..., Tiotropium (By breathing) (Spiriva, Spiriva Respimat), Heart Failure (DC), Hyponatremia (DC), Hypoxia (GEN), CHF Stoplight, Opioid Safety Discharge Attestations Time Spent in Discharge Care*: greater than 30 min Quality Metrics Clinical Quality Measures [ No reported AMI, CVA or VTE this stay] Coding Level of Care Code Acute Code for Chg Fwd Diagnoses Benign essential HTN I10 Acute on chronic diastolic (congestive) heart failure I50.33 Sinus tachycardia R00.0 Fluid overload E87.70 Hypoxia R09.02 Acute hyponatremia E87.1 Acute on chronic respiratory failure with hypoxia and hypercapnia J96.21; J96.22 Anasarca R60.1
[2023-04-15 11:49] LABS: Glucose Point of Care 188 mg/dL (70-110)
[2023-04-15] MEDS: insulin lispro 100 unit/1 mL SUBCUT (12:04)
== END 2023-04-15 15:41 | disposition home or self-care (01) | DRG 291 ==
LOC: ER 22:46 → ICU 04-04 00:50 → CSU 04-09 21:32
PROVIDERS: Family Medicine; Admitting Provider Family Medicine; Emergency Provider Emergency Medicine; PCP Family Medicine; Visit Provider Internal Medicine
DX: I11.0 Hypertensive heart disease with heart failure (principal); I50.33 Acute on chronic diastolic (congestive) heart failure; J96.21 Acute and chronic respiratory failure with hypoxia; J96.22 Acute and chronic respiratory failure with hypercapnia; J18.9 Pneumonia, unspecified organism; E87.1 Hypo-osmolality and hyponatremia; L97.329 Non-pressure chronic ulcer of left ankle with unspecified severity; L97.319 Non-pressure chronic ulcer of right ankle with unspecified severity; L03.116 Cellulitis of left lower limb; L03.115 Cellulitis of right lower limb; J98.11 Atelectasis; E66.2 Morbid (severe) obesity with alveolar hypoventilation; Z68.43 Body mass index [BMI] 50.0-59.9, adult; R00.0 Tachycardia, unspecified; Z99.81 Dependence on supplemental oxygen; K59.00 Constipation, unspecified; E87.6 Hypokalemia; I87.2 Venous insufficiency (chronic) (peripheral); I89.0 Lymphedema, not elsewhere classified
CPT/HCPCS: 36415; 36416; 36600; 51702; 71045; 71250; 71275; 80048; 80051; 80053; 81003; 82044; 82330; 82803; 82805; 82962; 83036; 83615; 83735; 83880; 83930; 83935; 84100; 84145; 84295; 84300; 84443; 84484; 84703; 85025; 85651; 86140; 87305; 87449; 87486; 87581; 87633; 87641; 90471; 90686; 90732; 93005; 93970; 94640; 94660; 94664; 94669; 94760; 96372; 96374; 96375; 96376; 97110; 97116; 97162; 97530; 99291; C8929; C9113; J0696; J1170; J1650; J1815; J1940; J2270; J2405; J2543; J2920; J3372; J3480; J3490; J7626; Q9956; Q9967